=== PATIENT | female | born 1990 | race African-American/Black ===

== ENCOUNTER 2016-11-24 10:36 | Inpatient (IN) | payer OTHER ==
[~2016-11-24] VITALS: Ht 154.9 cm; Wt 60.0 kg
[~2016-11-24 10:36] MED LIST: ABAC1TAB12 PO; ACYC800T PO; ADV50050 INH; ALBU18HF INHALATION; ALBU2.5V3 NEB; ALBU8.5H3 INH; ALPR0.5T PO; AZIT250T6 PO; GUAI600T14 PO; IBUP400T22 PO; IPRA3AMP INHALATION; MONT10TA24 PO; PRED10TA PO
[2016-11-24] MEDS ORDERED: IPRATROPIUM (NEB) 0.5 MG/2.5 ML AMP INH STA (10:42)
[2016-11-24] MEDS ORDERED: MAGNESIUM SULFATE 2 GM/50 ML 50 ML IVPB STA (10:42)
[2016-11-24] MEDS ORDERED: METHYLPREDNISOLONE 125 MG INJ IV STA (10:42)
[2016-11-24] MEDS ORDERED: ALBUTEROL 0.5% (NEB) 2.5 MG/0.5 ML AMP INH STA (10:42)
[2016-11-24] MEDS ORDERED: ABAC1TAB12 PO (11:14)
--- NOTE | 2016-11-24 11:16 | RADRPT ---
PROCEDURE: XR Chest AP portable CLINICAL INDICATION: Asthma exacerbation TECHNIQUE: An AP portable radiograph of the chest was submitted. COMPARISON: 09/16/2016 FINDINGS: Support Hardware: None Cardiovascular: The cardiovascular silhouette appears unremarkable. Lung Longo: The lung longo appear clear with no nodule, alveolar infiltrate, or interstitial promi nence evident. Pleural Spaces: No pneumothorax or pleural effusion is identified. Osseous Structures: The osseous structures appear intact. Soft Tissues: The soft tissues appear unremarkable. IMPRESSION: Stable and unremarkable portable chest. Physician Robles Date Time Electronically viewed and signed by Marito Rosas Physician on 11/24/2016 11:16 /
[2016-11-24 11:46] LABS: ADD SCAN DIFF NO
[2016-11-24 11:50] LABS: BASOPHILS % 0.3 % (0.0-2.0); EOSINOPHILS # 0.4 10^3/ul (0.0-0.5); EOSINOPHILS % 6.1 % (0.0-7.0); HEMATOCRIT 43.5 % (37.0-47.0); HEMOGLOBIN 14.3 g/dl (12.0-16.0); LYMPHOCYTES % 28.2 % (15.0-51.0); MEAN CORPUSCULAR HEMOGLOBIN 28.4 pg (29.0-33.0); MEAN CORPUSCULAR HGB CONC 32.9 g/dl (32.0-37.0); MEAN CORPUSCULAR VOLUME 86.5 fl (82.0-101.0); MEAN PLATELET VOLUME 9.2 fl (7.4-10.4); MONOCYTE # 0.4 10^3/ul (0.3-0.9); MONOCYTES % 5.5 % (0.0-11.0); NEUTROPHIL # 4.2 10^3/ul (1.6-7.5); NEUTROPHILS % 59.6 % (39.0-77.0); PLATELET COUNT 234 10^3/UL (140-415); RED BLOOD COUNT 5.03 10^6/ul (4.20-5.40); RED CELL DISTRIBUTION WIDTH 12.4 % (11.5-14.5); WHITE BLOOD COUNT 7.1 10^3/ul (4.8-10.8)
[2016-11-24 12:01] LABS: ALBUMIN 3.9 g/dl (3.3-4.9)
[2016-11-24 12:02] LABS: INR 0.99; PROTIME 13.1 Sec (12.2-14.2)
[2016-11-24 12:03] LABS: CREATININE 0.68 mg/dl (0.44-1.00); PARTIAL THROMBOPLASTIN TIME 28.1 Sec (25.0-35.0)
[2016-11-24 12:04] LABS: ALBUMIN/GLOBULIN RATIO 1.39; BILIRUBIN,INDIRECT 0.8 mg/dl (0-1.1); BILIRUBIN,TOTAL 0.8 mg/dl (0.2-1.3); CALCIUM 9.2 mg/dl (8.4-10.2); TOTAL PROTEIN 6.7 g/dl (6.1-8.1)
[2016-11-24] MEDS ORDERED: VANCOMYCIN 1 GM (PMX) 250 ML IVPB SCH (12:30)
[2016-11-24] MEDS ORDERED: PIPER-TAZO 3.375 GM IV (PMX) 100 ML IVPB ONE (12:30)
[2016-11-24] MEDS ORDERED: POTASSIUM CHLORIDE (SR) 20 MEQ TAB PO STA (12:41)
[2016-11-24] MEDS ORDERED: ACETAMINOPHEN 325 MG TAB PO PRN ×3 (13:30→14:30)
[2016-11-24] MEDS ORDERED: ONDANSETRON 4 MG INJ IV PRN ×2 (13:30→14:30)
[2016-11-24] MEDS ORDERED: MAGNESIUM HYDROXIDE 30ML CUP PO PRN (14:00)
[2016-11-24] MEDS ORDERED: ZOLPIDEM 5 MG TAB PO PRN (14:00)
[2016-11-24] MEDS ORDERED: HYDROCODONE/APAP (5/325) TAB PO PRN (14:00)
[2016-11-24] MEDS ORDERED: NACL 0.9% 3 ML SYG IV SCH (14:00)
[2016-11-24] MEDS ORDERED: BISACODYL (EC) 5 MG TAB PO PRN (14:00)
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
[2016-11-24 14:13] LABS: ADD UMIC YES; URINE BILIRUBIN (Dip) NEGATIVE (NEGATIVE); URINE BLOOD (Dip) 2+ (NEGATIVE); URINE COLOR YELLOW (YELLOW); URINE GLUCOSE (Dip) NEGATIVE (NEGATIVE); URINE KETONES (Dip) NEGATIVE (NEGATIVE); URINE LEUKOCYTE ESTERASE (Dip) TRACE (NEGATIVE); URINE NITRITE (Dip) NEGATIVE (NEGATIVE); URINE TOTAL PROTEIN (Dip) NEGATIVE (NEGATIVE); URINE UROBILINOGEN (Dip) 0.2 E.U./dL (0.1-1.0)
[2016-11-24 14:27] LABS: MUCUS,URINE MODERATE; SQUAMOUS EPITHELIAL CELL,UR FEW
[2016-11-24 14:28] LABS: TRICHOMONAS,URINE OCCASIONAL
[2016-11-24] MEDS ORDERED: ALBUTEROL 0.5% (NEB) 2.5 MG/0.5 ML AMP NEB STA (14:34)
[2016-11-24] MEDS ORDERED: IPRATROPIUM (NEB) 0.5 MG/2.5 ML AMP NEB STA (14:34)
--- NOTE | 2016-11-24 15:08 | HP ---
DATE OF ADMISSION: 11/24/2016 TIME OF EVALUATION: 1330 hours.. REASON FOR ADMISSION: Dyspnea, cough. HISTORY OF PRESENT ILLNESS: This is a 26-year-old -[place] female with past medical history of asthma, HIV and herpes simplex virus, who came to the emergency room with chief complaint of dyspnea that has been going on for the past 2 days. The patient also verbalized a nonproductive cough. The patient denied any chest pain. The patient denied any fevers or chills. The patient verbalized that she ran out of her inhaled bronchodilators. The patient verbalized that she has been compliant with her antiretroviral medications. The patient's chest x-ray that was done in the emergency room was negative for any acute cardiopulmonary changes. The patient was noticed to have hypoxia. The patient's CBC was within normal limits. The patient's metabolic panel showed hypokalemia. The patient was treated with IV magnesium sulfate and a single dose of IV Solu-Medrol in the emergency room along with IV Zosyn and IV vancomycin. The patient's potassium was repleted in the emergency room. The patient's symptoms improved with the treatment strategy. PAST MEDICAL HISTORY: Asthma, HIV-positive, herpes simplex, HPV. PAST SURGICAL HISTORY: Denies. HOME MEDICATIONS: 1. Triumeq 1 tablet p.o. daily. 2. ProAir HFA 8.5 grams, 2 puffs inhaled q.4h. p.r.n. dyspnea. ALLERGIES: FISH. SOCIAL HISTORY: The patient is a former tobacco user. Current marijuana abuser. Denies any alcohol abuse. REVIEW OF SYSTEMS: A 12-point review of systems was made and review of systems is negative other than what is mentioned in history of present illness. PHYSICAL EXAMINATION: VITAL SIGNS: Temperature 98.0, pulse rate 110, respiratory rate 26, blood pressure 147/87, oxygen saturation 100% on low-flow O2. GENERAL: This is well-built, well-nourished -[place] female lying in bed in no apparent distress. HEENT: Head normocephalic and atraumatic. Eyes: Anicteric sclerae. Conjunctivae clear. ENT: Nasal septum is midline. Oral mucosa is dry. NECK: Supple. No JVD noticed. RESPIRATORY: Bilaterally diminished breath sounds. No use of accessory muscles of respiration. A few fine rales with occasional expiratory wheezing. CARDIAC: Regular rate and rhythm. No murmurs heard. GASTROINTESTINAL: Abdomen soft, nontender and nondistended. Bowel sounds positive in all 4 quadrants. GENITOURINARY: Deferred. EXTREMITIES: No cyanosis, no clubbing, no edema. Peripheral pulses are palpable. NEUROLOGIC: The patient is awake, alert and oriented. Cranial nerves are grossly intact. LABORATORY AND DIAGNOSTIC DATA: WBC 7.1, hemoglobin 14.3, hematocrit 43.5, platelet count 234. Sodium 147, potassium 3.0, chloride 106, carbon dioxide 27 , anion gap 15, BUN 9, creatinine 0.68, glucose 88, calcium 9.2. AST 21, ALT 30, alkaline phosphatase 60, total protein 6.7, albumin 3.9. PT 13.1, INR 0.99 , APTT 28.1. Chest x-ray: No acute cardiopulmonary changes. IMPRESSION: This is a 26-year-old -[place] female with past medical history of asthma who came to the emergency room with chief complaint of cough and dyspnea, who has evidence of asthma exacerbation and will be admitted here for further treatment and evaluation. ASSESSMENT AND PLAN: 1. Acute respiratory failure. Hypoxic. Secondary to asthma exacerbation. The patient will be maintained on supplemental oxygen. The patient will be started on inhaled bronchodilators around the clock and on a p.r.n. basis. 2. Acute asthma exacerbation. The patient will be started on tapering dose of IV steroids. The patient will be maintained on inhaled bronchodilators, both beta 2 agonist and inhaled anticholinergics around the clock and on a p.r.n. basis for any episodes of shortness of breath. The patient will also be started on leukotriene inhibitors. No antibiotics will be started since the patient has no obvious evidence of any infection. 3. Human immunodeficiency virus positive status. The patient will be started on antiretroviral medications. A CD4 count will be obtained on this patient. 4. History of herpes simplex virus. No active issues. 5. History of marijuana abuse. A urine drug screen will be ordered on this patient. PLAN: The patient will be admitted to inpatient medical/surgical floor. The patient will be started on DVT prophylaxis and gastrointestinal prophylaxis. The patient will remain a full code. Activities will be as tolerated. The rest of the patient's management will be based on the clinical course and the results of diagnostic studies. Based on the patient's clinical presentation, she most probably requires at least 2 midnights' stay for further management and evaluation of her clinical presentation. The case and management of this patient was fully discussed with Dr. Moore. Approximately 45 minutes was spent on the history and physical of this patient. MATILDA MOORE MD, AM/HI Conf#: [id number] DID#: [id number] MTDD
[2016-11-24] MEDS: ALBUTEROL/IPRATROPIUM (NEB) 3 ML AMP HHN SCH ×2 (15:27→19:46)
[2016-11-24] MEDS: METHYLPREDNISOLONE 125 MG INJ IV SCH ×2 (17:16→23:57)
[2016-11-24 18:20] VITALS: TEMP 98.4
[2016-11-24] MEDS: morphine 2 MG INJ IV PRN (20:36)
[2016-11-24 21:25] LABS: BARBITURATES Negative (NEGATIVE); BENZODIAZEPINES Negative (NEGATIVE); CANNABINOIDS Positive (NEGATIVE); COCAINE Negative (NEGATIVE); OPIATES Negative (NEGATIVE)
[2016-11-24] MEDS: MONTELUKAST 10 MG TAB PO SCH (21:47)
[2016-11-24] MEDS: FAMOTIDINE 20 MG TAB PO SCH (21:47)
[2016-11-24 21:48] VITALS: PULSE 90
[2016-11-24] MEDS: LORAZEPAM 2 MG INJ IV PRN (21:53)
[2016-11-24 22:01] VITALS: BP 105/78; PULSE 86; RESP 18
[2016-11-24 22:05] VITALS: Ht 154.9 cm; Wt 60.0 kg
[2016-11-25] VITALS (18 sets, daily range): BP systolic 99–143; BP diastolic 48–84; PULSE 68–113; RESP 15–18
[2016-11-25] MEDS: METHYLPREDNISOLONE 125 MG INJ IV SCH ×2 (05:28→12:03)
[2016-11-25] MEDS: LORAZEPAM 2 MG INJ IV PRN ×3 (05:59→21:25)
[2016-11-25] MEDS: ALBUTEROL/IPRATROPIUM (NEB) 3 ML AMP HHN SCH ×4 (06:04→21:02)
[2016-11-25] MEDS: ALBUTEROL/IPRATROPIUM (NEB) 3 ML AMP HHN PRN ×2 (06:05→11:26)
[2016-11-25] MEDS: ENOXAPARIN 40 MG/0.4 ML SYG SC SCH (09:00)
[2016-11-25 10:19] LABS: ADD SCAN DIFF NO
[2016-11-25] MEDS: DOLUTEGRAVIR SODIUM 50 MG TABLET PO SCH (10:21)
[2016-11-25] MEDS: ABACAVIR/LAMIVUDINE TAB PO SCH (10:21)
[2016-11-25] MEDS: FAMOTIDINE 20 MG TAB PO SCH ×2 (10:22→21:25)
[2016-11-25 10:27] LABS: HEMATOCRIT 44.1 % (37.0-47.0); HEMOGLOBIN 14.7 g/dl (12.0-16.0); LYMPHOCYTES # 0.8 10^3/ul (0.8-2.9); LYMPHOCYTES % 7.6 % (15.0-51.0); MEAN CORPUSCULAR HEMOGLOBIN 28.3 pg (29.0-33.0); MEAN CORPUSCULAR HGB CONC 33.3 g/dl (32.0-37.0); MEAN CORPUSCULAR VOLUME 84.8 fl (82.0-101.0); MEAN PLATELET VOLUME 9.4 fl (7.4-10.4); MONOCYTE # 0.1 10^3/ul (0.3-0.9); MONOCYTES % 1.2 % (0.0-11.0); NEUTROPHIL # 9.5 10^3/ul (1.6-7.5); NEUTROPHILS % 90.9 % (39.0-77.0); PLATELET COUNT 241 10^3/UL (140-415); RED CELL DISTRIBUTION WIDTH 12.2 % (11.5-14.5); WHITE BLOOD COUNT 10.5 10^3/ul (4.8-10.8)
[2016-11-25 10:39] LABS: POTASSIUM 4.5 mmol/L (3.5-5.1)
[2016-11-25 10:41] LABS: CREATININE 0.58 mg/dl (0.44-1.00)
[2016-11-25 10:42] LABS: CALCIUM 9.9 mg/dl (8.4-10.2)
[2016-11-25 10:57] LABS: PHOSPHORUS 4.2 mg/dl (2.5-4.9)
[2016-11-25 10:58] LABS: MAGNESIUM 2.3 mg/dl (1.7-2.5)
[2016-11-25 11:28] LABS: THYROID STIMULATING HORMONE 0.311 MIU/L (0.465-4.680)
--- NOTE | 2016-11-25 13:13 | PN ---
Date/Time of Note Date/Time of Note DATE: 11/25/16 TIME: 13:12 Assessment/Plan VTE Prophylaxis VTE Prophylaxis Intervention: SCD's Lines/Catheters IV Catheter Type (from [facility], [place]): Saline Lock Urinary Cath still in place: No Assessment/Plan Chief Complaint/Hosp Course 1. Acute respiratory failure. Hypoxic. Secondary to asthma exacerbation. The patient will be maintained on supplemental oxygen. The patient will be continued on inhaled bronchodilators around the clock and on a p.r.n. basis. 2. Acute asthma exacerbation. The patient will be continued on tapering dose of IV steroids. The patient will be maintained on inhaled bronchodilators, both beta 2 agonist and inhaled anticholinergics around the clock and on a p.r.n. basis for any episodes of shortness of breath. The patient will also be maintained on leukotriene inhibitors. No antibiotics will be started since the patient has no obvious evidence of any infection. 3. Human immunodeficiency virus positive status. The patient on antiretroviral medications. Pending CD4 count. 4. History of herpes simplex virus. No active issues. 5. Substance abuse. The patient denies any regular use of marijuana and methamphetamine. However, the patient's urine drug screen is positive for both marijuana and methamphetamines. 6. Fluids, electrolytes, and nutrition. Regular diet as tolerated. 7. DVT prophylaxis. Bilateral sequential compression devices. 8. Gastrointestinal prophylaxis. Histamine 2 receptor blockers. 9. Plan. Continue inhaled bronchodilators. Continue tapering dose of steroids. Case discussed with Dr. Ram. Problems: Subjective 24 Hr Interval Summary Free Text/Dictation Respiratory status better. Complains of left chest wall pain. Exam/Review of Systems Vital Signs Vitals Vital Signs Date Time Temp Pulse Resp B/P Pulse Ox O2 Delivery O2 Flow Rate FiO2 11/25/16 12:33 92 11/25/16 11:38 100 30 11/25/16 11:17 98.0 18 112/78 11/25/16 01:04 4.0 11/24/16 22:01 Nasal Cannula Exam GENERAL: This is well-built, well-nourished -[place] female lying in bed in no apparent distress. HEENT: Head normocephalic and atraumatic. Eyes: Anicteric sclerae. Conjunctivae clear. ENT: Nasal septum is midline. Oral mucosa is dry. NECK: Supple. No JVD noticed. RESPIRATORY: Bilaterally diminished breath sounds. No use of accessory muscles of respiration. A few fine rales with occasional expiratory wheezing. CARDIAC: Regular rate and rhythm. No murmurs heard. GASTROINTESTINAL: Abdomen soft, nontender and nondistended. Bowel sounds positive in all 4 quadrants. GENITOURINARY: Deferred. EXTREMITIES: No cyanosis, no clubbing, no edema. Peripheral pulses are palpable. NEUROLOGIC: The patient is awake, alert and oriented. Cranial nerves are grossly intact. Results Result Diagram: 11/25/16 1010 11/25/16 1010 Results 24 hrs Laboratory Tests Test 11/24/16 14:00 11/25/16 10:10 Urine Amphetamines Screen POSITIVE Urine Barbiturates Negative Urine Benzodiazepines Screen Negative Urine Bilirubin NEGATIVE Urine Cannabinoids Positive Urine Clarity CLEAR Urine Cocaine Screen Negative Urine Color YELLOW Urine Glucose NEGATIVE Urine Hemoglobin 2+ H Urine Ketones NEGATIVE Urine Leukocyte Esterase TRACE H Urine Microscopic RBC 2-5 Urine Microscopic WBC 2-5 Urine Mucus MODERATE Urine Nitrite NEGATIVE Urine Opiates Screen Negative Urine Test NEGATIVE Urine Specific [place] >=1.030 H Urine Squamous Epithelial Cells FEW Urine Total Protein NEGATIVE Urine Trichomonas OCCASIONAL Urine Urobilinogen 0.2 E.U./dL Urine pH 5.5 Anion Gap 18 H Basophils # 0.0 Basophils % 0.0 Blood Urea Nitrogen 8 Calcium Level 9.9 Carbon Dioxide Level 24 Chloride Level 105 Cholesterol Level 139 Cholesterol/HDL Ratio 3.0 Creatinine 0.58 Eosinophils # 0.0 Eosinophils % 0.0 Free Thyroxine 1.02 Glucose Level 117 HDL Cholesterol 46 Hematocrit 44.1 Hemoglobin 14.7 Hemoglobin A1c 5.2 LDL Cholesterol, Calculated 83 Lymphocytes # 0.8 Lymphocytes % 7.6 L Magnesium Level 2.3 Mean Corpuscular Hemoglobin 28.3 L Mean Corpuscular Hemoglobin Concent 33.3 Mean Corpuscular Volume 84.8 Mean Platelet Volume 9.4 Monocytes # 0.1 L Monocytes % 1.2 Neutrophils # 9.5 H Neutrophils % 90.9 H Nucleated Red Blood Cells # 0.0 Nucleated Red Blood Cells % 0.0 Phosphorus Level 4.2 Platelet Count 241 Potassium Level 4.5 Red Blood Count 5.20 Red Cell Distribution Width 12.2 Sodium Level 142 Thyroid Stimulating Hormone (TSH) 0.311 L Triglycerides Level 50 White Blood Count 10.5 # Medications Medications Current Medications Ondansetron HCl (Zofran Inj) 4 mg Q6H PRN IV NAUSEA AND/OR VOMITING; Start at 14:00 Acetaminophen (Tylenol Tab) 650 mg Q6H PRN PO PAIN LEVEL 1-3 OR FEVER; Start at 14:00 Acetaminophen/ Hydrocodone Bitart ([place] (5/325)) 1 tab Q6H PRN PO MODERATE PAIN LEVEL 4-6; Start 11/24/16 at 14:00 Morphine Sulfate (morphine) 2 mg Q4H PRN IV SEVERE PAIN LEVEL 7-10 Last administered on 11/24/16 20:36; Admin Dose 2 MG; Start 11/24/16 at 14:00 Magnesium Hydroxide (Milk Of Mag) 30 ml DAILY PRN PO CONSTIPATION; Start at 14:00 Bisacodyl (Dulcolax) 5 mg DAILY PRN PO CONSTIPATION; Start 11/24/16 at 14:00 Zolpidem Tartrate (Ambien) 5 mg QHS PRN PO SLEEP; Start 11/24/16 at 14:00 Famotidine (Pepcid) 20 mg Q12 PO Last administered on 11/25/16 10:22; Admin Dose 20 MG; Start 11/24/16 at 21:00 Enoxaparin Sodium (Lovenox) 40 mg DAILY SC ; Start 11/25/16 at 09:00 Methylprednisolone Sodium Succinate (Solu-Medrol) 60 mg Q6 IV Last administered on 11/25/16 12:03; Admin Dose 60 MG; Start 11/24/16 at 18:00 Montelukast Sodium (Singulair) 10 mg HS PO Last administered on 11/24/16 21:47 ; Admin Dose 10 MG; Start 11/24/16 at 21:00 Abacavir/ Lamivudine (Epzicom) 1 tab DAILY PO Last administered on 11/25/16 10 :21; Admin Dose 1 TAB; Start 11/25/16 at 09:00 Dolutegravir Sodium ([place]) 50 mg DAILY PO Last administered on 11/25/16 10: 21; Admin Dose 50 MG; Start 11/25/16 at 09:00 Lorazepam (Ativan) 1 mg Q6H PRN IV Anxiety Last administered on 11/25/16 12:03 ; Admin Dose 1 MG; Start 11/24/16 at 17:00 MATILDA ENCINAS NP Nov 25, 2016 13:13
[2016-11-25] MEDS ORDERED: VANCOMYCIN IV PER PHARMACY XX SCH (17:00)
[2016-11-25] MEDS: METHYLPREDNISOLONE 40 MG INJ IV SCH ×2 (18:46→23:33)
[2016-11-25] MEDS ORDERED: VANCOMYCIN 1.25 GM in SOD CHLORIDE 0.9% 250 ML IVPB SCH (19:00)
[2016-11-25] MEDS: MONTELUKAST 10 MG TAB PO SCH (21:25)
[2016-11-25] MEDS ORDERED: DIPHENHYDRAMINE 25 MG CAP PO PRN (21:30)
[2016-11-25] MEDS: morphine 2 MG INJ IV PRN (22:23)
[2016-11-26] MEDS ORDERED: VANCOMYCIN 750 MG in SOD CHLORIDE 0.9% 150 ML IVPB SCH (03:00)
[2016-11-26 04:52] LABS: ADD SCAN DIFF NO
[2016-11-26 04:56] LABS: BASOPHILS % 0.1 % (0.0-2.0); HEMATOCRIT 41.3 % (37.0-47.0); HEMOGLOBIN 13.7 g/dl (12.0-16.0); LYMPHOCYTES # 0.8 10^3/ul (0.8-2.9); LYMPHOCYTES % 5.7 % (15.0-51.0); MEAN CORPUSCULAR HEMOGLOBIN 28.3 pg (29.0-33.0); MEAN CORPUSCULAR HGB CONC 33.2 g/dl (32.0-37.0); MEAN CORPUSCULAR VOLUME 85.3 fl (82.0-101.0); MEAN PLATELET VOLUME 9.3 fl (7.4-10.4); MONOCYTE # 0.2 10^3/ul (0.3-0.9); MONOCYTES % 1.5 % (0.0-11.0); NEUTROPHIL # 13.3 10^3/ul (1.6-7.5); NEUTROPHILS % 92.1 % (39.0-77.0); PLATELET COUNT 292 10^3/UL (140-415); RED BLOOD COUNT 4.84 10^6/ul (4.20-5.40); RED CELL DISTRIBUTION WIDTH 12.5 % (11.5-14.5); WHITE BLOOD COUNT 14.5 10^3/ul (4.8-10.8)
[2016-11-26] MEDS: METHYLPREDNISOLONE 40 MG INJ IV SCH ×3 (05:20→17:01)
[2016-11-26 05:34] LABS: POTASSIUM 4.6 mmol/L (3.5-5.1)
[2016-11-26 05:36] LABS: CREATININE 0.63 mg/dl (0.44-1.00)
[2016-11-26 05:37] LABS: CALCIUM 9.8 mg/dl (8.4-10.2)
[2016-11-26 05:40] VITALS: PULSE 99
[2016-11-26] MEDS: ALBUTEROL/IPRATROPIUM (NEB) 3 ML AMP HHN PRN ×2 (05:47→17:20)
[2016-11-26] MEDS: morphine 2 MG INJ IV PRN ×4 (05:54→21:52)
[2016-11-26 06:58] LABS: MAGNESIUM 2.3 mg/dl (1.7-2.5); PHOSPHORUS 4.4 mg/dl (2.5-4.9)
[2016-11-26 07:30] VITALS: PULSE 100
[2016-11-26 07:35] VITALS: BP 133/69; RESP 24
[2016-11-26] MEDS: ENOXAPARIN 40 MG/0.4 ML SYG SC SCH (09:00)
[2016-11-26 09:08] VITALS: PULSE 95
[2016-11-26] MEDS: ALBUTEROL/IPRATROPIUM (NEB) 3 ML AMP HHN SCH ×3 (09:11→20:29)
[2016-11-26] MEDS: FAMOTIDINE 20 MG TAB PO SCH ×2 (09:34→20:13)
[2016-11-26] MEDS: DOLUTEGRAVIR SODIUM 50 MG TABLET PO SCH (09:47)
[2016-11-26] MEDS: ABACAVIR/LAMIVUDINE TAB PO SCH (09:47)
[2016-11-26] MEDS: CHOLECALCIFEROL 400 UNITS TAB PO SCH (09:47)
[2016-11-26] MEDS: ONDANSETRON 4 MG INJ IV PRN (09:59)
[2016-11-26] MEDS: LORAZEPAM 2 MG INJ IV PRN ×2 (11:32→21:52)
[2016-11-26 13:30] LABS: LYMPHOCYTE - CD4/CD8 RATIO 0.41 (0.86-5.00)
--- NOTE | 2016-11-26 14:25 | PN ---
Date/Time of Note Date/Time of Note DATE: 11/26/16 TIME: 14:18 Assessment/Plan VTE Prophylaxis VTE Prophylaxis Intervention: SCD's Lines/Catheters [facility]from [facility] Saline Lock Urinary Cath still in place: No Assessment/Plan Chief Complaint/Hosp Course 1. Acute respiratory failure. Hypoxic. Secondary to asthma exacerbation. cont on bronchodilators and o2 as needed. cont on steroid 2. Acute asthma exacerbation. Patient with history of frequent asthma exacerbation. will get pulmonoogy consultaiton. cont on breathing tx. 3. Human immunodeficiency virus positive status. cont antiretrovirals. will get ID consult 4. History of herpes simplex virus. No active issues. 5. Substance abuse. The patient denies any regular use of marijuana and methamphetamine. However, the patient's urine drug screen is positive for both marijuana and methamphetamines. Cessation advised DISPO/PLAN: carrier operator to follow for worse breathing ID consult to follow for bacteremia. cont inpatient monitoring Discussed plan of care with Dr. Espinosa Problems: Subjective 24 Hr Interval Summary Free Text/Dictation still with reported shortness of breath Exam/Review of Systems Vital Signs Vitals Vital Signs Date Time Temp Pulse Resp B/P Pulse Ox O2 Delivery O2 Flow Rate FiO2 11/26/16 13:35 95 30 11/26/16 13:01 Nasal Cannula 2.0 11/26/16 09:13 102 24 11/26/16 07:35 98.3 133/69 Intake and Output 11/25/16 11/25/16 11/26/16 15:00 23:00 07:00 Intake Total 200 ml 100 ml 400 ml Balance 200 ml 100 ml 400 ml Exam General: No acute signs or symptoms of distress Eyes: pupils equal round, Anicteric sclera Neck: Supple nontender, no JVD Cardiac: S1, S2 auscultated, regular rhythm and rate Pulmonary: wheezing auscultated bilaterally GI: Abdomen soft nontender nondistended, bowel sounds active Extremities: No edema bilateral lower extremities Skin: Clean dry and intact Neurologic: Alert to person place and time and situation Results Result Diagram: 11/26/1641911/26/16419 Results 24 hrs Laboratory Tests Test 11/26/16 04:20 Anion Gap 16 Basophils # 0.0 Basophils % 0.1 Blood Urea Nitrogen 13 Calcium Level 9.8 Carbon Dioxide Level 24 Chloride Level 107 Creatinine 0.63 Eosinophils # 0.0 Eosinophils % 0.0 Glucose Level 123 Hematocrit 41.3 Hemoglobin 13.7 Lymphocytes # 0.8 Lymphocytes % 5.7 L Magnesium Level 2.3 Mean Corpuscular Hemoglobin 28.3 L Mean Corpuscular Hemoglobin Concent 33.2 Mean Corpuscular Volume 85.3 Mean Platelet Volume 9.3 Monocytes # 0.2 L Monocytes % 1.5 Neutrophils # 13.3 H Neutrophils % 92.1 H Nucleated Red Blood Cells # 0.0 Nucleated Red Blood Cells % 0.0 Phosphorus Level 4.4 Platelet Count 292 # Potassium Level 4.6 Red Blood Count 4.84 Red Cell Distribution Width 12.5 Sodium Level 142 White Blood Count 14.5 #H Medications Medications Current Medications Ondansetron HCl (Zofran Inj) 4 mg Q6H PRN IV NAUSEA AND/OR VOMITING Last administered on 11/26/16 09:59; Admin Dose 4 MG; Start 11/24/16 at 14:00 Acetaminophen (Tylenol Tab) 650 mg Q6H PRN PO PAIN LEVEL 1-3 OR FEVER; Start at 14:00 Acetaminophen/ Hydrocodone Bitart ([place] (5/325)) 1 tab Q6H PRN PO MODERATE PAIN LEVEL 4-6; Start 11/24/16 at 14:00 Morphine Sulfate (morphine) 2 mg Q4H PRN IV SEVERE PAIN LEVEL 7-10 Last administered on 11/26/16 09:53; Admin Dose 2 MG; Start 11/24/16 at 14:00 Magnesium Hydroxide (Milk Of Mag) 30 ml DAILY PRN PO CONSTIPATION; Start at 14:00 Bisacodyl (Dulcolax) 5 mg DAILY PRN PO CONSTIPATION; Start 11/24/16 at 14:00 Zolpidem Tartrate (Ambien) 5 mg QHS PRN PO SLEEP; Start 11/24/16 at 14:00 Famotidine (Pepcid) 20 mg Q12 PO Last administered on 11/26/16 09:34; Admin Dose 20 MG; Start 11/24/16 at 21:00 Enoxaparin Sodium (Lovenox) 40 mg DAILY SC ; Start 11/25/16 at 09:00 Montelukast Sodium (Singulair) 10 mg HS PO Last administered on 11/25/16 21:25 ; Admin Dose 10 MG; Start 11/24/16 at 21:00 Abacavir/ Lamivudine (Epzicom) 1 tab DAILY PO Last administered on 11/26/16 09 :47; Admin Dose 1 TAB; Start 11/25/16 at 09:00 Dolutegravir Sodium (Tivicay) 50 mg DAILY PO Last administered on 11/26/16 09: 47; Admin Dose 50 MG; Start 11/25/16 at 09:00 Lorazepam (Ativan) 1 mg Q6H PRN IV Anxiety Last administered on 11/26/16 11:32 ; Admin Dose 1 MG; Start 11/24/16 at 17:00 Methylprednisolone Sodium Succinate (Solu-Medrol) 40 mg Q6 IV Last administered on 11/26/16 12:41; Admin Dose 40 MG; Start 11/25/16 at 18:00 Cholecalciferol (Vitamin D) 800 units DAILY PO Last administered on 11/26/16 09:47; Admin Dose 800 UNITS; Start 11/26/16 at 09:00 Diphenhydramine HCl (Benadryl) 25 mg Q6H PRN PO ITCHING Last administered on 22:23; Admin Dose 25 MG; Start 11/25/16 at 21:30 YAMEL MEREDITH Nov 26, 2016 14:25
[2016-11-26] MEDS: CLINDAMYCIN 600 MG/D5W (PMX) 50 ML IVPB SCH (18:30)
--- NOTE | 2016-11-26 18:59 | CONS ---
DATE OF ADMISSION: 11/24/2016 DATE OF CONSULTATION: 11/26/2016 TYPE OF CONSULTATION: Infectious disease. REASON FOR CONSULTATION: Antibiotic management. HISTORY OF PRESENT ILLNESS: Kellen Trejo is a 26-year-old black female with numerous problems who comes in with dyspnea and cough. Her past problems include: 1. HIV. 2. History of asthma. 3. Herpes simplex virus. 4. HPV. The patient came to the emergency room with dyspnea for the 2 days prior to admission. She had a no nproductive cough without fever or chills. She ran out of inhaled bronchodilators. The patient's c hest x-ray was negative for cardiopulmonary changes. She was hypokalemic. She was treated with IV magnesium sulfate and Solu-Medrol and was given vancomycin and Zosyn in the emergency room. PAST MEDICAL HISTORY: As outlined. FAMILY HISTORY: Noncontributory. SOCIAL HISTORY: She is a former smoker and she uses marijuana. She denies alcohol abuse. MEDICATIONS: Include: 1. Triumeq 1 tablet a day for her HIV, not sure what her CD4 count is. 2. She is on ProAir for her inhaler. LABORATORY: On admission, her white count was 7.1, H and H of 14.3 and 43.5, platelet count 234,000 . BUN and creatinine 9 over 0.68, AST 21, ALT 30, alkaline phosphatase 60, total protein 6.7, album in 3.9. PHYSICAL EXAMINATION: GENERAL: She is a well-developed, well-nourished female who is alert, responsive. No acute distres s. VITAL SIGNS: Stable. She is afebrile. SKIN: Without generalized rash. HEENT: Within normal limits. NECK: Supple. LYMPH NODES: None palpable. CHEST: Decreased breath sounds at the bases. HEART: Without murmur or gallop. ABDOMEN: Soft, nontender without organosplenomegaly or masses. EXTREMITIES: Without cyanosis, clubbing or edema. RECTAL AND GENITAL: Deferred. NEUROLOGIC: No focal neurological abnormality. IMPRESSION AND PLAN: The patient comes in now with exacerbation of asthma with complaints of cough and dyspnea. She is on supplemental oxygen and bronchodilators. We will taper her steroids and see whether she has any underlying pneumonia. Her CD4 count will be obtained. Her blood culture: One out of 2 grew out alpha-hemolytic strep species. She has mixed gram-positive organisms in her urin e. White count today is 14.5. She is on her Triumeq, which is abacavir, lamivudine and Tivicay (or dolutegravir sodium). She is o ff antibiotics. We're going to repeat her blood cultures. Blood cultures actually were repeated on the . She seems to be responding to medication. I will dictate my findings to the hospitalist . Dictated By: VENKATESH BENAVIDES MD, JD/HI Conf#: [id number] DID#: [id number]
[2016-11-26] MEDS: MONTELUKAST 10 MG TAB PO SCH (20:13)
[2016-11-26 20:21] VITALS: BP 139/89; RESP 20
[2016-11-27] MEDS: CLINDAMYCIN 600 MG/D5W (PMX) 50 ML IVPB SCH ×3 (00:05→11:26)
[2016-11-27] MEDS: METHYLPREDNISOLONE 40 MG INJ IV SCH ×4 (00:06→17:48)
[2016-11-27] MEDS: morphine 2 MG INJ IV PRN ×4 (04:07→21:08)
[2016-11-27] MEDS: ALBUTEROL/IPRATROPIUM (NEB) 3 ML AMP HHN PRN ×2 (04:21→11:48)
[2016-11-27] MEDS: LORAZEPAM 2 MG INJ IV PRN ×3 (05:21→18:10)
[2016-11-27 08:04] VITALS: BP 141/84; RESP 20
[2016-11-27] MEDS: ALBUTEROL/IPRATROPIUM (NEB) 3 ML AMP HHN SCH ×3 (08:55→20:23)
[2016-11-27] MEDS: ENOXAPARIN 40 MG/0.4 ML SYG SC SCH (09:00)
[2016-11-27] MEDS: FAMOTIDINE 20 MG TAB PO SCH ×2 (09:14→21:09)
[2016-11-27] MEDS: ABACAVIR/LAMIVUDINE TAB PO SCH (09:14)
[2016-11-27] MEDS: DOLUTEGRAVIR SODIUM 50 MG TABLET PO SCH (09:14)
[2016-11-27] MEDS: CHOLECALCIFEROL 400 UNITS TAB PO SCH (09:15)
--- NOTE | 2016-11-27 11:53 | CONS ---
Date/Time of Note Date/Time of Note DATE: 11/27/16 TIME: 11:48 Assessment/Plan Assessment/Plan Additional Assessment/Plan Chest x-ray was reviewed from of this month which is essentially clear. Assessment and recommendations; next 1. Patient admitted with recurrent asthma exacerbation with a history of ongoing smoking. 2. Acute bronchitis. 3. History of being HIV positive patient currently on appropriate anti- retroviral regimen. 4. Prior history of pneumonia. Identity of the offending organism is unknown at this point. 5. History of human papillomavirus as well as HSV infection. Continue current treatment. Discontinue clindamycin. Start Levaquin 5oo mg IV daily. Continue Solu-Medrol at current dosing. Consultation Date/Type/Reason Admit Date/Time Nov 24, 2016 at 13:15 Date of Consultation: Nov 27, 2016 Type of Consultation: Pulmonary Reason for Consultation Pulmonary consultation requested for evaluation and treatment of severe asthma. History presenting; patient is a 26-year-old F [place] girl who came into the emergency room on the of this month with complaints of shortness of breath cough wheezing going on for the last 2 days prior to presentation. Patient denied having any history of high fever or chills. Upon evaluation patient was diagnosed with recurrent asthma exacerbation was admitted to the medical floor and started on IV antibiotics as well as systemic steroids and bronchial dilator regimen. The patient is feeling a little better since admission. Past medical history; next 1. Patient with history of being HIV positive. Next 2. History of HPV infection. 3. History of HSV infection. 4. Patient gives a prior history of pneumonia but she is not sure as to the offending organism. 5. Multiple admissions to [facility] for asthma exacerbation. As well as multiple emergency room visits. Next Medications; were reviewed. Allergies; R to vancomycin and fish. Social history; patient still smokes off and on. Family history; patient has 2 children. Occupational history; patient is on disability. Review of systems; denies any headache, any seizures.Denies any visual changes , any sinus symptoms or postnasal drip. Denies any sore throat, dysphagia , odynophagia. Denies any chest pain or angina. Complains of cough with production of green sputum but. Denies any hemoptysis. Denies any abdominal pain, nausea vomiting. Complains of wheezing. Complains of shortness of breath on exertion. Denies any melena, hematochezia any urinary symptoms. Any skin changes. Any weight loss. General exam; young woman currently in no distress. Several bouts of coughing were observed during examination. Past Surgical History Past Surgical Hx: no surgical history Social History Smoking Status: Current every day smoker Exam/Review of Systems Vital Signs Vitals Vital Signs Date Time Temp Pulse Resp B/P Pulse Ox O2 Delivery O2 Flow Rate FiO2 11/27/16 09:00 100 3.0 11/27/16 08:57 77 16 Nasal Cannula 32 11/27/16 08:04 98.8 141/84 Intake and Output 11/26/16 11/26/16 11/27/16 15:00 23:00 07:00 Intake Total 1360 ml 460 ml Output Total 0 ml Balance 1360 ml 460 ml Exam H EENT examination; supple neck, no JVD. No lymphadenopathy. Midline trachea. No thyromegaly. Fair dentition. No pharyngeal thrush. Pupils are midsize and reactive to light. Chest examination; diminished breath sound bilaterally with bilateral expiratory wheezing. S1-S2 audible, no murmurs. Regular rhythm. Abdomen examination; soft, nontender. Bowel sounds audible. Extremity examination; no peripheral edema. No clubbing. Pulses 2+ bilaterally. 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 Results Result Diagram: 11/26/1641911/26/16419 Medications Medications Current Medications Ondansetron HCl (Zofran Inj) 4 mg Q6H PRN IV NAUSEA AND/OR VOMITING Last administered on 11/26/16 09:59; Admin Dose 4 MG; Start 11/24/16 at 14:00 Acetaminophen (Tylenol Tab) 650 mg Q6H PRN PO PAIN LEVEL 1-3 OR FEVER Last administered on 11/26/16 20:17; Admin Dose 650 MG; Start 11/24/16 at 14:00 Acetaminophen/ Hydrocodone Bitart ([place] (5/325)) 1 tab Q6H PRN PO MODERATE PAIN LEVEL 4-6; Start 11/24/16 at 14:00 Morphine Sulfate (morphine) 2 mg Q4H PRN IV SEVERE PAIN LEVEL 7-10 Last administered on 11/27/16 09:21; Admin Dose 2 MG; Start 11/24/16 at 14:00 Magnesium Hydroxide (Milk Of Mag) 30 ml DAILY PRN PO CONSTIPATION; Start at 14:00 Bisacodyl (Dulcolax) 5 mg DAILY PRN PO CONSTIPATION; Start 11/24/16 at 14:00 Zolpidem Tartrate (Ambien) 5 mg QHS PRN PO SLEEP; Start 11/24/16 at 14:00 Famotidine (Pepcid) 20 mg Q12 PO Last administered on 11/27/16 09:14; Admin Dose 20 MG; Start 11/24/16 at 21:00 Enoxaparin Sodium (Lovenox) 40 mg DAILY SC ; Start 11/25/16 at 09:00 Montelukast Sodium (Singulair) 10 mg HS PO Last administered on 11/26/16 20:13 ; Admin Dose 10 MG; Start 11/24/16 at 21:00 Abacavir/ Lamivudine (Epzicom) 1 tab DAILY PO Last administered on 11/27/16 09 :14; Admin Dose 1 TAB; Start 11/25/16 at 09:00 Dolutegravir Sodium (Tivicay) 50 mg DAILY PO Last administered on 11/27/16 09: 14; Admin Dose 50 MG; Start 11/25/16 at 09:00 Lorazepam (Ativan) 1 mg Q6H PRN IV Anxiety Last administered on 11/27/16 05:21 ; Admin Dose 1 MG; Start 11/24/16 at 17:00 Methylprednisolone Sodium Succinate (Solu-Medrol) 40 mg Q6 IV Last administered on 11/27/16 05:22; Admin Dose 40 MG; Start 11/25/16 at 18:00 Cholecalciferol (Vitamin D) 800 units DAILY PO Last administered on 11/27/16 09:15; Admin Dose 800 UNITS; Start 11/26/16 at 09:00 Diphenhydramine HCl 25 mg 25 mg Q6H PRN PO ITCHING Last administered on 22:23; Admin Dose 25 MG; Start 11/25/16 at 21:30 Clindamycin HCl/ Dextrose (Cleocin 600 Mg/ D5W (Pmx)) 50 ml @ 50 mls/hr Q6 IVPB Last administered on 11/27/16 11:26; Admin Dose 50 MLS/HR; Start 11/26/16 at 18:00 DAVID GARIBAY Nov 27, 2016 11:53
[2016-11-27] MEDS: LEVOFLOXACIN 500MG/D5W (PMX) 100 ML IVPB SCH (12:10)
--- NOTE | 2016-11-27 12:34 | PN ---
DATE: 11/27/2016 SUBJECTIVE: No acute events overnight. The patient is lying comfortably in bed , sleeping. No fevers. No labs this morning. MICROBIOLOGY: Blood culture on admission grew alpha hemolytic strep species. Repeat blood cultures negative. Urine culture was consistent with contaminant. Urinalysis was positive on admission. ANTIMICROBIALS: The patient is on: 1. Levaquin. 2. Clindamycin. 3. She is also on IV steroids. 4. She is also on antiretroviral medications. PHYSICAL EXAMINATION: GENERAL: This is a well-developed woman who is in no distress. HEENT: Head atraumatic, normocephalic. Sclerae anicteric. Buccal mucosa dry. NECK: Supple, trachea midline. CHEST: Rise symmetrical. Breath sounds diminished. HEART: S1, S2. ABDOMEN: Soft, bowel tones present. EXTREMITIES: No cyanosis. ASSESSMENT: 1. Acute asthma exacerbation and acute bronchitis. 2. AIDS with a recent CD4 count on this admission of 153. 3. Alpha hemolytic strep bacteremia, possibly secondary to urinary tract infection versus secondary to pulmonary source. 4. History of herpes simplex virus and HPV. 5. History of noncompliance. PLAN: We are going to start patient on Rocephin. We will start her on Bactrim once daily for PCP prophylaxis, Diflucan once daily and acyclovir empiric, given history of herpes simplex virus and immunocompromised state. Repeat urine culture. Continue steroids, bronchodilators as per pulmonary recommendations. Continue antiretroviral medications. Dictated By: [employer] SALES ADVISOR for VENKATESH SORIA/HI Conf#: [id number] DID#: [id number] DARCY
[2016-11-27] MEDS: FLUCONAZOLE 100 MG TAB PO SCH (12:44)
[2016-11-27] MEDS: TRIMETHOPRIM/SULFAMETHOX (DS) TAB PO SCH (12:44)
[2016-11-27] MEDS: CEFTRIAXONE 1 GM/50 ML (PMX) 50 ML IVPB SCH (14:09)
[2016-11-27] MEDS: ONDANSETRON 4 MG INJ IV PRN ×2 (14:12→21:25)
--- NOTE | 2016-11-27 14:33 | PN ---
Date/Time of Note Date/Time of Note DATE: 11/27/16 TIME: 14:30 Assessment/Plan VTE Prophylaxis VTE Prophylaxis Intervention: SCD's Lines/Catheters IV [facility]from [facility] Saline Lock Urinary Cath still in place: No Assessment/Plan Chief Complaint/Hosp Course 1. Acute respiratory failure. Hypoxic. Secondary to asthma exacerbation. cont on bronchodilators and o2 as needed. cont on steroid 2. Acute asthma exacerbation. Patient with history of frequent asthma exacerbation. cont on breathing tx. 3. Human immunodeficiency virus positive status. Now with AIDS with CD4 less than 200. cont antiretrovirals. Continue with ID recommendations 4. History of herpes simplex virus. Antiretrovirals per ID 5. Substance abuse. The patient denies any regular use of marijuana and methamphetamine. However, the patient's urine drug screen is positive for both marijuana and methamphetamines. Cessation advised DISPO/PLAN: Continue on breathing treatments. Await clinical improvement of respiratory status Discussed plan of care with Dr. Espinosa Problems: Subjective 24 Hr Interval Summary Free Text/Dictation Still reports having some shortness of breath. Slightly lethargic Exam/Review of Systems Vital Signs Vitals Vital Signs Date Time Temp Pulse Resp B/P Pulse Ox O2 Delivery O2 Flow Rate FiO2 11/27/16 11:49 112 20 95 Nasal Cannula 3.0 32 11/27/16 08:04 98.8 141/84 Intake and Output 11/26/16 11/26/16 11/27/16 14:59 22:59 06:59 Intake Total 1360 ml 460 ml Output Total 0 ml Balance 1360 ml 460 ml Exam General: In mild distress. Reports some shortness of breath. Slightly lethargic Eyes: pupils equal round, Anicteric sclera Neck: Supple nontender, no JVD Cardiac: S1, S2 auscultated, regular rhythm and rate Pulmonary: wheezing auscultated bilaterally GI: Abdomen soft nontender nondistended, bowel sounds active Extremities: No edema bilateral lower extremities Skin: Clean dry and intact Neurologic: Alert to person place and time and situation Results Result Diagram: 11/26/1641911/26/16419 Medications Medications Current Medications Ondansetron HCl (Zofran Inj) 4 mg Q6H PRN IV NAUSEA AND/OR VOMITING Last administered on 11/27/16t 14:12; Admin Dose 4 MG; Start 11/24/16 at 14:00 Acetaminophen (Tylenol Tab) 650 mg Q6H PRN PO PAIN LEVEL 1-3 OR FEVER Last administered on 11/26/16 20:17; Admin Dose 650 MG; Start 11/24/16 at 14:00 Acetaminophen/ Hydrocodone Bitart ([place] (5/325)) 1 tab Q6H PRN PO MODERATE PAIN LEVEL 4-6; Start 11/24/16 at 14:00 Morphine Sulfate (morphine) 2 mg Q4H PRN IV SEVERE PAIN LEVEL 7-10 Last administered on 11/27/16 14:09; Admin Dose 2 MG; Start 11/24/16 at 14:00 Magnesium Hydroxide (Milk Of Mag) 30 ml DAILY PRN PO CONSTIPATION; Start at 14:00 Bisacodyl (Dulcolax) 5 mg DAILY PRN PO CONSTIPATION; Start 11/24/16 at 14:00 Zolpidem Tartrate (Ambien) 5 mg QHS PRN PO SLEEP; Start 11/24/16 at 14:00 Famotidine (Pepcid) 20 mg Q12 PO Last administered on 11/27/16 09:14; Admin Dose 20 MG; Start 11/24/16 at 21:00 Enoxaparin Sodium (Lovenox) 40 mg DAILY SC ; Start 11/25/16 at 09:00 Montelukast Sodium (Singulair) 10 mg HS PO Last administered on 11/26/16 20:13 ; Admin Dose 10 MG; Start 11/24/16 at 21:00 Abacavir/ Lamivudine (Epzicom) 1 tab DAILY PO Last administered on 11/27/16 09 :14; Admin Dose 1 TAB; Start 11/25/16 at 09:00 Dolutegravir Sodium (Tivicay) 50 mg DAILY PO Last administered on 11/27/16 09: 14; Admin Dose 50 MG; Start 11/25/16 at 09:00 Lorazepam (Ativan) 1 mg Q6H PRN IV Anxiety Last administered on 11/27/16 12:09 ; Admin Dose 1 MG; Start 11/24/16 at 17:00 Methylprednisolone Sodium Succinate (Solu-Medrol) 40 mg Q6 IV Last administered on 11/27/16 12:09; Admin Dose 40 MG; Start 11/25/16 at 18:00 Cholecalciferol (Vitamin D) 800 units DAILY PO Last administered on 11/27/16 09:15; Admin Dose 800 UNITS; Start 11/26/16 at 09:00 Diphenhydramine HCl 25 mg 25 mg Q6H PRN PO ITCHING Last administered on 22:23; Admin Dose 25 MG; Start 11/25/16 at 21:30 Levofloxacin/ Dextrose 100 ml @ 100 mls/hr Q24H IVPB Last administered on 11/27 12:10; Admin Dose 100 MLS/HR; Start 11/27/16 at 12:00 Ceftriaxone Sodium (Rocephin) 50 ml @ 100 mls/hr Q24H IVPB Last administered on 11/27/16 14:09; Admin Dose 100 MLS/HR; Start 11/27/16 at 12:30 Fluconazole (Diflucan) 100 mg DAILY PO Last administered on 11/27/16 12:44; Admin Dose 100 MG; Start 11/27/16 at 12:30 Trimethoprim/ Sulfamethoxazole (Bactrim (Ds)) 1 tab DAILY PO Last administered on 11/27/16 12:44; Admin Dose 1 TAB; Start 11/27/16 at 12:30 Acyclovir (Zovirax) 400 mg BID PO ; Start 11/27/16 at 21:00 YAMEL MEREDITH Nov 27, 2016 14:33
[2016-11-27 20:20] VITALS: BP 124/85; RESP 20
[2016-11-27] MEDS: GUAIFENESIN LA 600 MG TABSR PO SCH (21:09)
[2016-11-27] MEDS: MONTELUKAST 10 MG TAB PO SCH (21:09)
[2016-11-27] MEDS: ACYCLOVIR 400 MG TAB PO SCH (21:09)
[2016-11-28] MEDS: METHYLPREDNISOLONE 40 MG INJ IV SCH ×4 (00:06→18:28)
[2016-11-28] MEDS: morphine 2 MG INJ IV PRN ×4 (00:57→18:38)
[2016-11-28] MEDS: LORAZEPAM 2 MG INJ IV PRN ×2 (00:57→21:34)
[2016-11-28] MEDS: ALBUTEROL/IPRATROPIUM (NEB) 3 ML AMP HHN PRN (05:23)
[2016-11-28 05:34] VITALS: PULSE 78
[2016-11-28 07:34] VITALS: BP 126/92; RESP 22
[2016-11-28] MEDS: FLUCONAZOLE 100 MG TAB PO SCH (08:14)
[2016-11-28] MEDS: TRIMETHOPRIM/SULFAMETHOX (DS) TAB PO SCH (08:15)
[2016-11-28] MEDS: FAMOTIDINE 20 MG TAB PO SCH ×2 (08:15→21:32)
[2016-11-28] MEDS: DOLUTEGRAVIR SODIUM 50 MG TABLET PO SCH (08:16)
[2016-11-28] MEDS: ABACAVIR/LAMIVUDINE TAB PO SCH (08:16)
[2016-11-28] MEDS: CHOLECALCIFEROL 400 UNITS TAB PO SCH (08:16)
[2016-11-28] MEDS: GUAIFENESIN LA 600 MG TABSR PO SCH ×3 (08:17→21:32)
[2016-11-28] MEDS: ACYCLOVIR 400 MG TAB PO SCH ×3 (08:17→21:00)
[2016-11-28] MEDS: ENOXAPARIN 40 MG/0.4 ML SYG SC SCH (08:21)
[2016-11-28] MEDS: ALBUTEROL/IPRATROPIUM (NEB) 3 ML AMP HHN SCH ×4 (08:30→20:06)
[2016-11-28 08:34] VITALS: PULSE 94
--- NOTE | 2016-11-28 11:42 | PN ---
DATE: 11/28/2016 SUBJECTIVE: The patient still has significant cough, shortness of breath, and mild wheezing on ausc ultation. OBJECTIVE: VITAL SIGNS: Temperature 98, pulse 94, blood pressure 126/92, O2 saturation 99% on 3 L nasal cannul a. NECK: Supple. No JVD or lymphadenopathy. CARDIAC: S1, S2, no added sounds or murmurs. CHEST: Diminished air entry in both lung longo with marked prolonged expiratory wheeze. ABDOMEN: Soft, nontender. No guarding or rebound. EXTREMITIES: No cyanosis, clubbing, edema. NEUROLOGIC: Grossly intact. No focal deficits. LABORATORIES: White count 14.5, hemoglobin 13.7. Chemistry within normal limits. IMAGING: Chest x-ray on admission had shown no significant infiltrates or effusions. IMPRESSION AND PLAN: 1. Acute bronchitis. 2. History of asthma. 3. Human immunodeficiency virus with noncompliance. 4. History of herpes simplex. The patient will require: 1. Continued steroids. 2. Continue antibiotics. 3. Bronchodilators. 4. Supplemental O2. 5. Human immunodeficiency virus medications. 6. DVT and GI prophylaxis. Dictated By: NATALIIA PEREZ/HI Conf#: [id number] DID#: [id number]
[2016-11-28] MEDS: LEVOFLOXACIN 500MG/D5W (PMX) 100 ML IVPB SCH (11:53)
[2016-11-28] MEDS: CEFTRIAXONE 1 GM/50 ML (PMX) 50 ML IVPB SCH (13:25)
[2016-11-28] MEDS: ONDANSETRON 4 MG INJ IV PRN ×2 (13:25→21:34)
--- NOTE | 2016-11-28 14:54 | CONS ---
Date/Time of Note Date/Time of Note DATE: 11/28/16 TIME: 14:51 Assessment/Plan Assessment/Plan Chief Complaint/Hosp Course SUBJECTIVE: No acute events overnight. The patient is alert, lying comfortably in bed. No fevers. No labs this morning. MICROBIOLOGY: Blood culture on admission grew Leuconostoc sp. Repeat blood cultures negative. Urine culture was consistent with contaminant. Urinalysis was positive on admission. ANTIMICROBIALS: The patient is on: 1. Levaquin. 2. Rocephin 3. Bactrim DS daily 4. Diflucan 5. Acyclovir 4. LOONEY PHYSICAL EXAMINATION: GENERAL: This is a well-developed woman who is in no distress. HEENT: Head atraumatic, normocephalic. Sclerae anicteric. Buccal mucosa dry. NECK: Supple, trachea midline. CHEST: Rise symmetrical. Breath sounds diminished. HEART: S1, S2. ABDOMEN: Soft, bowel tones present. EXTREMITIES: No cyanosis. ASSESSMENT: 1. Acute asthma exacerbation and acute bronchitis. 2. AIDS with a recent CD4 count on this admission of 153. 3. Bacteremia, possibly secondary to urinary tract infection versus secondary to pulmonary source. 4. History of herpes simplex virus and HPV. 5. History of noncompliance with HIV meds. PLAN: Stable, continue abx, steroids/BD's and prophylactic meds, encourage compliance, and f/u with HIV clinic OP DW patient Problems: Consultation Date/Type/Reason Admit Date/Time Nov 24, 2016 at 13:15 Initial Consult Date 11/27/16 Type of Consultation: ID Exam/Review of Systems Vital Signs Vitals Vital Signs Date Time Temp Pulse Resp B/P Pulse Ox O2 Delivery O2 Flow Rate FiO2 11/28/16 14:47 84 20 99 Nasal Cannula 3.0 11/28/16 08:34 30 11/28/16 07:34 97.6 126/92 Intake and Output 11/27/16 11/27/16 11/28/16 15:00 23:00 07:00 Intake Total 200 ml 800 ml 600 ml Balance 200 ml 800 ml 600 ml Results Result Diagram: 11/26/16 0420 11/26/16 0420 Medications Medications Current Medications Ondansetron HCl (Zofran Inj) 4 mg Q6H PRN IV NAUSEA AND/OR VOMITING Last administered on 11/28/16t 13:25; Admin Dose 4 MG; Start 11/24/16 at 14:00 Acetaminophen (Tylenol Tab) 650 mg Q6H PRN PO PAIN LEVEL 1-3 OR FEVER Last administered on 11/26/16 20:17; Admin Dose 650 MG; Start 11/24/16 at 14:00 Acetaminophen/ Hydrocodone Bitart ([place] (5/325)) 1 tab Q6H PRN PO MODERATE PAIN LEVEL 4-6; Start 11/24/16 at 14:00 Magnesium Hydroxide (Milk Of Mag) 30 ml DAILY PRN PO CONSTIPATION; Start at 14:00 Bisacodyl (Dulcolax) 5 mg DAILY PRN PO CONSTIPATION; Start 11/24/16 at 14:00 Zolpidem Tartrate (Ambien) 5 mg QHS PRN PO SLEEP; Start 11/24/16 at 14:00 Famotidine (Pepcid) 20 mg Q12 PO Last administered on 11/28/16 08:15; Admin Dose 20 MG; Start 11/24/16 at 21:00 Enoxaparin Sodium (Lovenox) 40 mg DAILY SC ; Start 11/25/16 at 09:00 Montelukast Sodium (Singulair) 10 mg HS PO Last administered on 11/27/16 21:09 ; Admin Dose 10 MG; Start 11/24/16 at 21:00 Abacavir/ Lamivudine (Epzicom) 1 tab DAILY PO Last administered on 11/28/16 08: 16; Admin Dose 1 TAB; Start 11/25/16 at 09:00 Dolutegravir Sodium (Tivicay) 50 mg DAILY PO Last administered on 11/28/16 08: 16; Admin Dose 50 MG; Start 11/25/16 at 09:00 Lorazepam (Ativan) 1 mg Q6H PRN IV Anxiety Last administered on 11/28/16 00:57 ; Admin Dose 1 MG; Start 11/24/16 at 17:00 Methylprednisolone Sodium Succinate (Solu-Medrol) 40 mg Q6 IV Last administered on 11/28/16 11:47; Admin Dose 40 MG; Start 11/25/16 at 18:00 Cholecalciferol (Vitamin D) 800 units DAILY PO Last administered on 11/28/16 08 :16; Admin Dose 800 UNITS; Start 11/26/16 at 09:00 Diphenhydramine HCl 25 mg 25 mg Q6H PRN PO ITCHING Last administered on 22:23; Admin Dose 25 MG; Start 11/25/16 at 21:30 Levofloxacin/ Dextrose 100 ml @ 100 mls/hr Q24H IVPB Last administered on 11:53; Admin Dose 100 MLS/HR; Start 11/27/16 at 12:00 Ceftriaxone Sodium (Rocephin) 50 ml @ 100 mls/hr Q24H IVPB Last administered on 11/28/16 13:25; Admin Dose 100 MLS/HR; Start 11/27/16 at 12:30 Fluconazole (Diflucan) 100 mg DAILY PO Last administered on 11/28/16 08:14; Admin Dose 100 MG; Start 11/27/16 at 12:30 Trimethoprim/ Sulfamethoxazole (Bactrim (Ds)) 1 tab DAILY PO Last administered on 11/28/16 08:15; Admin Dose 1 TAB; Start 11/27/16 at 12:30 Acyclovir (Zovirax) 400 mg BID PO Last administered on 11/27/16 21:09; Admin Dose 400 MG; Start 11/27/16 at 21:00 Morphine Sulfate (morphine) 1 mg Q4H PRN IV SEVERE PAIN LEVEL 7-10 Last administered on 11/28/16 09:47; Admin Dose 1 MG; Start 11/27/16 at 18:00 Guaifenesin (Mucinex) 600 mg BID PO Last administered on 11/28/16 08:17; Admin Dose 600 MG; Start 11/27/16 at 21:00 JHONATAN BRIGHT NP Nov 28, 2016 14:54
--- NOTE | 2016-11-28 15:27 | PN ---
Date/Time of Note Date/Time of Note DATE: 11/28/16 TIME: 15:24 Assessment/Plan VTE Prophylaxis VTE Prophylaxis Intervention: SCD's Lines/Catheters [facility] Peripheral IV Urinary Cath still in place: No Assessment/Plan Chief Complaint/Hosp Course 1. Acute respiratory failure. Hypoxic. Secondary to asthma exacerbation. Of note, patient did report that she ran out of her medications at home and was not taking her bronchodilators. Cont on bronchodilators and o2 as needed while inpatient. cont on steroid. Continue with digital forensic examiner recommendations 2. Acute asthma exacerbation. Patient with history of frequent asthma exacerbation. Cinder Pitman following. Continue recommendations. Continue with breathing treatments 3. Human immunodeficiency virus positive status. Now with AIDS with CD4 less than 200. cont antiretrovirals. 4. History of herpes simplex virus. Antiretrovirals per ID 5. Substance abuse. The patient denies any regular use of marijuana and methamphetamine. However, the patient's urine drug screen is positive for both marijuana and methamphetamines. Cessation advised 6. Medical noncompliance. Patient did report that she has not been taking her HIV medication or her inhalers at home due to the fact that she ran out of them. She was instructed to follow-up with clinic however did not. Patient advised about need for medical compliance DISPO/PLAN: Still with shortness of breath. Bronchodilators around the clock. Await clinical improvement of respiratory status Discussed plan of care with Dr. Espinosa Problems: Subjective 24 Hr Interval Summary Free Text/Dictation Still states she has moderate shortness of breath Exam/Review of Systems Vital Signs Vitals Vital Signs Date Time Temp Pulse Resp B/P Pulse Ox O2 Delivery O2 Flow Rate FiO2 11/28/16 14:47 84 20 99 Nasal Cannula 3.0 11/28/16 08:34 30 11/28/16 07:34 97.6 126/92 Intake and Output 11/27/16 11/27/16 11/28/16 15:00 23:00 07:00 Intake Total 200 ml 800 ml 600 ml Balance 200 ml 800 ml 600 ml Exam General: Lethargic. Noted with shortness of breath Eyes: pupils equal round, Anicteric sclera Neck: Supple nontender, no JVD Cardiac: S1-S2 auscultated. Remains regular rate Pulmonary: Wheezing auscultated bilateral lung longo with bases noted to be diminished GI: Soft nontender nondistended Extremities: No edema bilateral lower extremities Skin: Clean dry and intact Neurologic: Alert to person place and time and situation however slightly lethargic Results Result Diagram: 11/26/1641911/26/16419 Medications Medications Current Medications Ondansetron HCl (Zofran Inj) 4 mg Q6H PRN IV NAUSEA AND/OR VOMITING Last administered on 11/28/16 13:25; Admin Dose 4 MG; Start 11/24/16 at 14:00 Acetaminophen (Tylenol Tab) 650 mg Q6H PRN PO PAIN LEVEL 1-3 OR FEVER Last administered on 11/26/16 20:17; Admin Dose 650 MG; Start 11/24/16 at 14:00 Acetaminophen/ Hydrocodone Bitart ([place] (5/325)) 1 tab Q6H PRN PO MODERATE PAIN LEVEL 4-6; Start 11/24/16 at 14:00 Magnesium Hydroxide (Milk Of Mag) 30 ml DAILY PRN PO CONSTIPATION; Start at 14:00 Bisacodyl (Dulcolax) 5 mg DAILY PRN PO CONSTIPATION; Start 11/24/16 at 14:00 Zolpidem Tartrate (Ambien) 5 mg QHS PRN PO SLEEP; Start 11/24/16 at 14:00 Famotidine (Pepcid) 20 mg Q12 PO Last administered on 11/28/16 08:15; Admin Dose 20 MG; Start 11/24/16 at 21:00 Enoxaparin Sodium (Lovenox) 40 mg DAILY SC ; Start 11/25/16 at 09:00 Montelukast Sodium (Singulair) 10 mg HS PO Last administered on 11/27/16 21:09 ; Admin Dose 10 MG; Start 11/24/16 at 21:00 Abacavir/ Lamivudine (Epzicom) 1 tab DAILY PO Last administered on 11/28/16 08: 16; Admin Dose 1 TAB; Start 11/25/16 at 09:00 Dolutegravir Sodium (Tivicay) 50 mg DAILY PO Last administered on 11/28/16 08: 16; Admin Dose 50 MG; Start 11/25/16 at 09:00 Lorazepam (Ativan) 1 mg Q6H PRN IV Anxiety Last administered on 11/28/16 00:57 ; Admin Dose 1 MG; Start 11/24/16 at 17:00 Methylprednisolone Sodium Succinate (Solu-Medrol) 40 mg Q6 IV Last administered on 11/28/16 11:47; Admin Dose 40 MG; Start 11/25/16 at 18:00 Cholecalciferol (Vitamin D) 800 units DAILY PO Last administered on 11/28/16 08 :16; Admin Dose 800 UNITS; Start 11/26/16 at 09:00 Diphenhydramine HCl 25 mg 25 mg Q6H PRN PO ITCHING Last administered on 22:23; Admin Dose 25 MG; Start 11/25/16 at 21:30 Levofloxacin/ Dextrose 100 ml @ 100 mls/hr Q24H IVPB Last administered on 11:53; Admin Dose 100 MLS/HR; Start 11/27/16 at 12:00 Ceftriaxone Sodium (Rocephin) 50 ml @ 100 mls/hr Q24H IVPB Last administered on 11/28/16 13:25; Admin Dose 100 MLS/HR; Start 11/27/16 at 12:30 Fluconazole (Diflucan) 100 mg DAILY PO Last administered on 11/28/16 08:14; Admin Dose 100 MG; Start 11/27/16 at 12:30 Trimethoprim/ Sulfamethoxazole (Bactrim (Ds)) 1 tab DAILY PO Last administered on 11/28/16 08:15; Admin Dose 1 TAB; Start 11/27/16 at 12:30 Acyclovir (Zovirax) 400 mg BID PO Last administered on 11/27/16 21:09; Admin Dose 400 MG; Start 11/27/16 at 21:00 Morphine Sulfate (morphine) 1 mg Q4H PRN IV SEVERE PAIN LEVEL 7-10 Last administered on 11/28/16 09:47; Admin Dose 1 MG; Start 11/27/16 at 18:00 Guaifenesin (Mucinex) 600 mg BID PO Last administered on 11/28/16 08:17; Admin Dose 600 MG; Start 11/27/16 at 21:00 YAMEL MEREDITH Nov 28, 2016 15:27
--- NOTE | 2016-11-28 16:13 | RADRPT ---
Echocardiogram Report Patient Name: FAITH BRUCE Gender: Female Date: 1990 Study Date: 27-Nov-2016 Solar Engineer: Homer Constantino RADHA Location: [facility] Ref. Physician: JHONATAN BRIGHT Quality: Good Procedures: Transthoracic echocardiogram with complete 2D, M-Mode, and doppler examination. Indications: R/O Endocarditis. 2D/M Mode Doppler Measurement Value Normal Ranges Measurement Value Normal Ranges LVIDd 2D 4.2 3.5 - 5.6 cm AV Peak Sha 1.2 m/sec LVIDs 2D 2.8 2.1 - 4.1 cm AV Peak PG 5.7 mmHg LVPWd 2D 1.0 0.6 - 1.1 cm LVOT Peak Sha 1.0 m/sec IVSd 2D 0.9 0.6 - 1.1 cm LVOT Peak PG 4.1 mmHg AoR Diam 2D 2.4 2.0 - 3.7 cm MV E Peak Sha 0.8 m/sec EDV 2D 78.0 cm3 MV A Peak Sha 0.5 m/sec ESV 2D 22.8 cm3 MV E/A 1.6 LA Dimen 2D 2.7 2.3 - 4.0 cm MV Decel Time 214 msec MV Decel [place] 4 MV E/A 1.6 Findings Left Ventricle: Normal left ventricular systolic function. Normal left ventricular cavity size. Normal left ventricular wall thickness. Ejection fraction is visually estimated at 55 %. Right Ventricle: Normal right ventricular size. Normal right ventricular systolic function. Left Atrium: The left atrium is normal in size. Right Atrium: The right atrium is normal in size. Mitral Valve: Normal appearance and function of the mitral valve with trace physiologic regurgitation. Aortic Valve: Normal appearance of the aortic valve. No significant aortic stenosis or insufficiency. Tricuspid Valve: Normal appearance and function of the tricuspid valve with trace physiologic regurgitation. Pulmonic Valve: Normal pulmonic valve appearance. Pericardium: Normal pericardium with no significant pericardial effusion. Aorta: Normal aortic root. IVC: Normal size and normal respiratory collapse consistent with normal right atrial pressure. Conclusions 1.Normal left ventricular systolic function. Normal left ventricular cavity size. Normal left ventricular wall thickness. Ejection fraction is visually estimated at 55 %. 2.Normal appearance and function of the mitral valve with trace physiologic regurgitation. 3.Normal appearance and function of the tricuspid valve with trace physiologic regurgitation. Electronically Signed By: Dave Rodriguez 28-Nov-2016 16:12:21 -0800 Patient Name: FAITH BRUCE Study Date: 27-Nov-2016 [id number]
[2016-11-28 19:35] VITALS: BP 117/66; RESP 20
[2016-11-28 20:08] VITALS: PULSE 89
[2016-11-28] MEDS: MONTELUKAST 10 MG TAB PO SCH (21:32)
[2016-11-29] MEDS: METHYLPREDNISOLONE 40 MG INJ IV SCH ×4 (00:21→18:27)
[2016-11-29] MEDS: ALBUTEROL/IPRATROPIUM (NEB) 3 ML AMP HHN SCH ×7 (00:42→20:16)
[2016-11-29] MEDS: morphine 2 MG INJ IV PRN ×3 (02:36→20:39)
[2016-11-29] MEDS: ONDANSETRON 4 MG INJ IV PRN ×2 (02:52→20:47)
[2016-11-29] MEDS: ALBUTEROL/IPRATROPIUM (NEB) 3 ML AMP HHN PRN ×2 (02:54→23:22)
[2016-11-29 02:56] VITALS: PULSE 83
[2016-11-29 06:13] LABS: ADD SCAN DIFF NO
[2016-11-29 06:34] LABS: POTASSIUM 4.5 mmol/L (3.5-5.1)
[2016-11-29 06:35] LABS: HEMATOCRIT 44.1 % (37.0-47.0); HEMOGLOBIN 14.7 g/dl (12.0-16.0); LYMPHOCYTES # 0.6 10^3/ul (0.8-2.9); LYMPHOCYTES % 7.6 % (15.0-51.0); MEAN CORPUSCULAR HEMOGLOBIN 28.3 pg (29.0-33.0); MEAN CORPUSCULAR HGB CONC 33.3 g/dl (32.0-37.0); MEAN PLATELET VOLUME 9.1 fl (7.4-10.4); MONOCYTE # 0.3 10^3/ul (0.3-0.9); NEUTROPHIL # 7.5 10^3/ul (1.6-7.5); NEUTROPHILS % 88.9 % (39.0-77.0); PLATELET COUNT 333 10^3/UL (140-415); RED BLOOD COUNT 5.19 10^6/ul (4.20-5.40); WHITE BLOOD COUNT 8.4 10^3/ul (4.8-10.8)
[2016-11-29 06:36] LABS: CREATININE 0.75 mg/dl (0.44-1.00)
[2016-11-29 06:37] LABS: CALCIUM 9.4 mg/dl (8.4-10.2); PHOSPHORUS 4.6 mg/dl (2.5-4.9)
[2016-11-29 06:38] LABS: MAGNESIUM 2.2 mg/dl (1.7-2.5)
[2016-11-29 07:51] VITALS: BP 95/53; RESP 18
[2016-11-29] MEDS: ENOXAPARIN 40 MG/0.4 ML SYG SC SCH (09:00)
[2016-11-29] MEDS: ACYCLOVIR 400 MG TAB PO SCH ×2 (09:00→21:00)
[2016-11-29] MEDS: TRIMETHOPRIM/SULFAMETHOX (DS) TAB PO SCH (09:47)
[2016-11-29] MEDS: GUAIFENESIN LA 600 MG TABSR PO SCH ×2 (09:47→20:48)
[2016-11-29] MEDS: CHOLECALCIFEROL 400 UNITS TAB PO SCH (09:48)
[2016-11-29] MEDS: FAMOTIDINE 20 MG TAB PO SCH ×2 (09:48→20:44)
[2016-11-29] MEDS: DOLUTEGRAVIR SODIUM 50 MG TABLET PO SCH (09:48)
[2016-11-29] MEDS: FLUCONAZOLE 100 MG TAB PO SCH (09:48)
[2016-11-29] MEDS: ABACAVIR/LAMIVUDINE TAB PO SCH (09:59)
[2016-11-29] MEDS: LORAZEPAM 2 MG INJ IV PRN ×2 (10:01→18:54)
--- NOTE | 2016-11-29 11:41 | CONS ---
Date/Time of Note Date/Time of Note DATE: 11/29/16 TIME: 11:39 Assessment/Plan Assessment/Plan Chief Complaint/Hosp Course SUBJECTIVE: No acute events overnight. The patient is alert, eating, looks comfortable. No fevers. MICROBIOLOGY: Blood culture on admission grew Leu[place]ost[place] sp. Repeat blood cultures negative. Urine culture was consistent with contaminant. Urinalysis was positive on admission. ANTIMICROBIALS: The patient is on: 1. Levaquin. 2. Rocephin 3. Bactrim DS daily 4. Diflucan 5. Acyclovir 4. LOONEY PHYSICAL EXAMINATION: GENERAL: This is a well-developed woman who is in no distress. HEENT: Head atraumatic, normocephalic. Sclerae anicteric. Buccal mucosa dry. NECK: Supple, trachea midline. CHEST: Rise symmetrical. Breath sounds diminished. HEART: S1, S2. ABDOMEN: Soft, bowel tones present. EXTREMITIES: No cyanosis. ASSESSMENT: 1. Acute asthma exacerbation and acute bronchitis==> improving. 2. AIDS with a recent CD4 count on this admission of 153. 3. Bacteremia, possibly secondary to urinary tract infection versus secondary to pulmonary source. 4. History of herpes simplex virus and HPV. 5. Noncompliance with HIV meds. PLAN: Clinically stable, continue abx, steroids/BD's and prophylactic meds, encourage compliance, and f/u with HIV clinic OP for management DW patient Problems: Consultation Date/Type/Reason Admit Date/Time Nov 24, 2016 at 13:15 Initial Consult Date 11/27/16 Type of Consultation: ID Exam/Review of Systems Vital Signs Vitals Vital Signs Date Time Temp Pulse Resp B/P Pulse Ox O2 Delivery O2 Flow Rate FiO2 11/29/16 08:28 93 20 97 21 11/29/16 07:51 97.8 95/53 11/29/16 05:59 3.0 11/29/16 05:54 Nasal Cannula Intake and Output 11/28/16 11/28/16 11/29/16 15:00 23:00 07:00 Intake Total 150 ml 1560 ml 600 ml Balance 150 ml 1560 ml 600 ml Results Result Diagram: 11/29/16 0525 11/29/16 0525 Results 24 hrs Laboratory Tests Test 11/29/16 05:25 Anion Gap 18 H Basophils # 0.0 Basophils % 0.0 Blood Urea Nitrogen 15 Calcium Level 9.4 Carbon Dioxide Level 23 Chloride Level 101 Creatinine 0.75 Eosinophils # 0.0 Eosinophils % 0.0 Glucose Level 122 Hematocrit 44.1 Hemoglobin 14.7 Lymphocytes # 0.6 L Lymphocytes % 7.6 L Magnesium Level 2.2 Mean Corpuscular Hemoglobin 28.3 L Mean Corpuscular Hemoglobin Concent 33.3 Mean Corpuscular Volume 85.0 Mean Platelet Volume 9.1 Monocytes # 0.3 Monocytes % 3.0 Neutrophils # 7.5 Neutrophils % 88.9 H Nucleated Red Blood Cells # 0.0 Nucleated Red Blood Cells % 0.0 Phosphorus Level 4.6 Platelet Count 333 Potassium Level 4.5 Red Blood Count 5.19 Red Cell Distribution Width 12.0 Sodium Level 137 White Blood Count 8.4 # Medications Medications Current Medications Ondansetron HCl (Zofran Inj) 4 mg Q6H PRN IV NAUSEA AND/OR VOMITING Last administered on 11/29/16 02:52; Admin Dose 4 MG; Start 11/24/16 at 14:00 Acetaminophen (Tylenol Tab) 650 mg Q6H PRN PO PAIN LEVEL 1-3 OR FEVER Last administered on 11/26/16 20:17; Admin Dose 650 MG; Start 11/24/16 at 14:00 Acetaminophen/ Hydrocodone Bitart ([place] (5/325)) 1 tab Q6H PRN PO MODERATE PAIN LEVEL 4-6; Start 11/24/16 at 14:00 Magnesium Hydroxide (Milk Of Mag) 30 ml DAILY PRN PO CONSTIPATION; Start at 14:00 Bisacodyl (Dulcolax) 5 mg DAILY PRN PO CONSTIPATION; Start 11/24/16 at 14:00 Zolpidem Tartrate (Ambien) 5 mg QHS PRN PO SLEEP; Start 11/24/16 at 14:00 Famotidine (Pepcid) 20 mg Q12 PO Last administered on 11/29/16 09:48; Admin Dose 20 MG; Start 11/24/16 at 21:00 Enoxaparin Sodium (Lovenox) 40 mg DAILY SC ; Start 11/25/16 at 09:00 Montelukast Sodium (Singulair) 10 mg HS PO Last administered on 11/27/16 21:09 ; Admin Dose 10 MG; Start 11/24/16 at 21:00 Abacavir/ Lamivudine (Epzicom) 1 tab DAILY PO Last administered on 11/29/16 09: 59; Admin Dose 1 TAB; Start 11/25/16 at 09:00 Dolutegravir Sodium (Tivicay) 50 mg DAILY PO Last administered on 11/29/16 09: 48; Admin Dose 50 MG; Start 11/25/16 at 09:00 Lorazepam (Ativan) 1 mg Q6H PRN IV Anxiety Last administered on 11/29/16 10:01 ; Admin Dose 1 MG; Start 11/24/16 at 17:00 Methylprednisolone Sodium Succinate (Solu-Medrol) 40 mg Q6 IV Last administered on 11/29/16 06:35; Admin Dose 40 MG; Start 11/25/16 at 18:00 Cholecalciferol (Vitamin D) 800 units DAILY PO Last administered on 11/29/16 09 :48; Admin Dose 800 UNITS; Start 11/26/16 at 09:00 Diphenhydramine HCl 25 mg 25 mg Q6H PRN PO ITCHING Last administered on 22:23; Admin Dose 25 MG; Start 11/25/16 at 21:30 Levofloxacin/ Dextrose 100 ml @ 100 mls/hr Q24H IVPB Last administered on 11:53; Admin Dose 100 MLS/HR; Start 11/27/16 at 12:00 Ceftriaxone Sodium (Rocephin) 50 ml @ 100 mls/hr Q24H IVPB Last administered on 11/28/16 13:25; Admin Dose 100 MLS/HR; Start 11/27/16 at 12:30 Fluconazole (Diflucan) 100 mg DAILY PO Last administered on 11/29/16 09:48; Admin Dose 100 MG; Start 11/27/16 at 12:30 Trimethoprim/ Sulfamethoxazole (Bactrim (Ds)) 1 tab DAILY PO Last administered on 11/29/16 09:47; Admin Dose 1 TAB; Start 11/27/16 at 12:30 Acyclovir (Zovirax) 400 mg BID PO Last administered on 11/27/16 21:09; Admin Dose 400 MG; Start 11/27/16 at 21:00 Morphine Sulfate (morphine) 1 mg Q4H PRN IV SEVERE PAIN LEVEL 7-10 Last administered on 11/29/16 06:36; Admin Dose 1 MG; Start 11/27/16 at 18:00 Guaifenesin (Mucinex) 600 mg BID PO Last administered on 11/29/16 09:47; Admin Dose 600 MG; Start 11/27/16 at 21:00 JHONATAN BRIGHT NP Nov 29, 2016 11:41
[2016-11-29] MEDS: LEVOFLOXACIN 500MG/D5W (PMX) 100 ML IVPB SCH (13:39)
[2016-11-29] MEDS: CEFTRIAXONE 1 GM/50 ML (PMX) 50 ML IVPB SCH (14:56)
--- NOTE | 2016-11-29 15:23 | PN ---
Date/Time of Note Date/Time of Note DATE: 11/29/16 TIME: 15:20 Assessment/Plan VTE Prophylaxis VTE Prophylaxis Intervention: SCD's Lines/Catheters IV [facility] [place] Urinary Cath still in place: No Assessment/Plan Chief Complaint/Hosp Course 1. Acute respiratory failure. Hypoxic. Secondary to asthma exacerbation. cont on bronchodilators . Titrate off O2 as possible 2. Acute asthma exacerbation. Patient with history of frequent asthma exacerbation. cont on breathing tx. of note less wheezing auscultated today 3. Human immunodeficiency virus positive status. Now with AIDS with CD4 less than 200. cont antiretrovirals. Continue with ID recommendations. Patient advised about medical compliance with her antiretrovirals 4. History of herpes simplex virus. Antiretrovirals per ID. Stable at present 5. Substance abuse. The patient denies any regular use of marijuana and methamphetamine. However, the patient's urine drug screen is positive for both marijuana and methamphetamines. Cessation advised. DISPO/PLAN: Continue antibiotics. Titrate off O2 today. Case management to follow for possible housing. animal husbandry worker to follow. Discharge when cleared by consultants Discussed plan of care with Dr. Espinosa Problems: Subjective 24 Hr Interval Summary Free Text/Dictation Still shortness of breath. Reports significant weakness with little ambulation Exam/Review of Systems Vital Signs Vitals Vital Signs Date Time Temp Pulse Resp B/P Pulse Ox O2 Delivery O2 Flow Rate FiO2 11/29/16 13:47 103 24 92 Nasal Cannula 11/29/16 13:47 2.0 11/29/16 08:28 21 11/29/16 07:51 97.8 95/53 Intake and Output 11/28/16 11/28/16 11/29/16 15:00 23:00 07:00 Intake Total 150 ml 1560 ml 600 ml Balance 150 ml 1560 ml 600 ml Exam General: Lethargic. Noted with shortness of breath Eyes: pupils equal round, Anicteric sclera Neck: Supple nontender, no JVD Cardiac: S1-S2 auscultated. Remains regular rate Pulmonary: Wheezing auscultated bilateral lung longo with bases noted to be diminished GI: Soft nontender nondistended Extremities: No edema bilateral lower extremities Skin: Clean dry and intact Neurologic: Alert to person place and time and situation however slightly lethargic Results Result Diagram: 3/2/17 0525 3/2/17 0525 Results 24 hrs Laboratory Tests Test 11/29/16 05:25 Anion Gap 18 H Basophils # 0.0 Basophils % 0.0 Blood Urea Nitrogen 15 Calcium Level 9.4 Carbon Dioxide Level 23 Chloride Level 101 Creatinine 0.75 Eosinophils # 0.0 Eosinophils % 0.0 Glucose Level 122 Hematocrit 44.1 Hemoglobin 14.7 Lymphocytes # 0.6 L Lymphocytes % 7.6 L Magnesium Level 2.2 Mean Corpuscular Hemoglobin 28.3 L Mean Corpuscular Hemoglobin Concent 33.3 Mean Corpuscular Volume 85.0 Mean Platelet Volume 9.1 Monocytes # 0.3 Monocytes % 3.0 Neutrophils # 7.5 Neutrophils % 88.9 H Nucleated Red Blood Cells # 0.0 Nucleated Red Blood Cells % 0.0 Phosphorus Level 4.6 Platelet Count 333 Potassium Level 4.5 Red Blood Count 5.19 Red Cell Distribution Width 12.0 Sodium Level 137 White Blood Count 8.4 # Medications Medications Current Medications Ondansetron HCl (Zofran Inj) 4 mg Q6H PRN IV NAUSEA AND/OR VOMITING Last administered on 11/29/16 02:52; Admin Dose 4 MG; Start 11/24/16 at 14:00 Acetaminophen (Tylenol Tab) 650 mg Q6H PRN PO PAIN LEVEL 1-3 OR FEVER Last administered on 11/26/16 20:17; Admin Dose 650 MG; Start 11/24/16 at 14:00 Acetaminophen/ Hydrocodone Bitart ([place] (5/325)) 1 tab Q6H PRN PO MODERATE PAIN LEVEL 4-6; Start 11/24/16 at 14:00 Magnesium Hydroxide (Milk Of Mag) 30 ml DAILY PRN PO CONSTIPATION; Start at 14:00 Bisacodyl (Dulcolax) 5 mg DAILY PRN PO CONSTIPATION; Start 11/24/16 at 14:00 Zolpidem Tartrate (Ambien) 5 mg QHS PRN PO SLEEP; Start 11/24/16 at 14:00 Famotidine (Pepcid) 20 mg Q12 PO Last administered on 11/29/16 09:48; Admin Dose 20 MG; Start 11/24/16 at 21:00 Enoxaparin Sodium (Lovenox) 40 mg DAILY SC ; Start 11/25/16 at 09:00 Montelukast Sodium (Singulair) 10 mg HS PO Last administered on 11/27/16 21:09 ; Admin Dose 10 MG; Start 11/24/16 at 21:00 Abacavir/ Lamivudine (Epzicom) 1 tab DAILY PO Last administered on 11/29/16 09: 59; Admin Dose 1 TAB; Start 11/25/16 at 09:00 Dolutegravir Sodium (Tivicay) 50 mg DAILY PO Last administered on 11/29/16 09: 48; Admin Dose 50 MG; Start 11/25/16 at 09:00 Lorazepam (Ativan) 1 mg Q6H PRN IV Anxiety Last administered on 11/29/16 10:01 ; Admin Dose 1 MG; Start 11/24/16 at 17:00 Methylprednisolone Sodium Succinate (Solu-Medrol) 40 mg Q6 IV Last administered on 11/29/16 13:38; Admin Dose 40 MG; Start 11/25/16 at 18:00 Cholecalciferol (Vitamin D) 800 units DAILY PO Last administered on 11/29/16 09 :48; Admin Dose 800 UNITS; Start 11/26/16 at 09:00 Diphenhydramine HCl 25 mg 25 mg Q6H PRN PO ITCHING Last administered on 22:23; Admin Dose 25 MG; Start 11/25/16 at 21:30 Levofloxacin/ Dextrose 100 ml @ 100 mls/hr Q24H IVPB Last administered on 13:39; Admin Dose 100 MLS/HR; Start 11/27/16 at 12:00 Ceftriaxone Sodium (Rocephin) 50 ml @ 100 mls/hr Q24H IVPB Last administered on 11/29/16 14:56; Admin Dose 100 MLS/HR; Start 11/27/16 at 12:30 Fluconazole (Diflucan) 100 mg DAILY PO Last administered on 11/29/16 09:48; Admin Dose 100 MG; Start 11/27/16 at 12:30 Trimethoprim/ Sulfamethoxazole (Bactrim (Ds)) 1 tab DAILY PO Last administered on 11/29/16 09:47; Admin Dose 1 TAB; Start 11/27/16 at 12:30 Acyclovir (Zovirax) 400 mg BID PO Last administered on 11/27/16 21:09; Admin Dose 400 MG; Start 11/27/16 at 21:00 Morphine Sulfate (morphine) 1 mg Q4H PRN IV SEVERE PAIN LEVEL 7-10 Last administered on 11/29/16 06:36; Admin Dose 1 MG; Start 11/27/16 at 18:00 Guaifenesin (Mucinex) 600 mg BID PO Last administered on 11/29/16 09:47; Admin Dose 600 MG; Start 11/27/16 at 21:00 YAMEL MEREDITH Nov 29, 2016 15:23
--- NOTE | 2016-11-29 16:55 | RADRPT ---
PROCEDURE: XR Chest. CLINICAL INDICATION: Shortness of breath. TECHNIQUE: Single frontal view. COMPARISON: 11/24/2016. FINDINGS: There is mild left basilar atelectasis. The lungs are otherwise clear. The heart size is normal. There is no pleural effusion. There is no pneumothorax. IMPRESSION: 1. Mild left basilar atelectasis. 2. Otherwise normal chest radiograph. RPTAT: QQ .Russel Pearson MD, MD Date Time Electronically viewed and signed by .Russel Pearson MD, MD on 11/29/2016 16:55 .R/
[2016-11-29 19:00] VITALS: BP 135/69; RESP 18
[2016-11-29] MEDS ORDERED: VITAMIN A & D 5 GM OINT PACKET TOP ONE (19:36)
[2016-11-29] MEDS: MONTELUKAST 10 MG TAB PO SCH (20:44)
[2016-11-30] MEDS: METHYLPREDNISOLONE 40 MG INJ IV SCH ×2 (00:04→05:42)
[2016-11-30] MEDS: morphine 2 MG INJ IV PRN ×3 (00:34→14:37)
[2016-11-30] MEDS: ALBUTEROL/IPRATROPIUM (NEB) 3 ML AMP HHN SCH ×5 (02:40→16:51)
[2016-11-30] MEDS: ONDANSETRON 4 MG INJ IV PRN (05:42)
[2016-11-30 06:25] LABS: ADD SCAN DIFF NO
[2016-11-30 06:29] LABS: ABNORMAL IP MESSAGE 1; BASOPHILS % 0.1 % (0.0-2.0); HEMATOCRIT 43.9 % (37.0-47.0); HEMOGLOBIN 14.4 g/dl (12.0-16.0); LYMPHOCYTES # 0.5 10^3/ul (0.8-2.9); LYMPHOCYTES % 5.3 % (15.0-51.0); MEAN CORPUSCULAR HEMOGLOBIN 28.1 pg (29.0-33.0); MEAN CORPUSCULAR HGB CONC 32.8 g/dl (32.0-37.0); MEAN CORPUSCULAR VOLUME 85.6 fl (82.0-101.0); MEAN PLATELET VOLUME 8.9 fl (7.4-10.4); MONOCYTE # 0.3 10^3/ul (0.3-0.9); MONOCYTES % 3.3 % (0.0-11.0); NEUTROPHILS % 90.5 % (39.0-77.0); PLATELET COUNT 382 10^3/UL (140-415); RED BLOOD COUNT 5.13 10^6/ul (4.20-5.40); RED CELL DISTRIBUTION WIDTH 11.8 % (11.5-14.5)
[2016-11-30 06:56] LABS: POTASSIUM 4.3 mmol/L (3.5-5.1)
[2016-11-30 06:59] LABS: CREATININE 0.78 mg/dl (0.44-1.00)
[2016-11-30 07:00] LABS: CALCIUM 9.6 mg/dl (8.4-10.2)
[2016-11-30 07:23] VITALS: BP 105/52; RESP 22
[2016-11-30] MEDS: ACYCLOVIR 400 MG TAB PO SCH (09:00)
[2016-11-30] MEDS: ENOXAPARIN 40 MG/0.4 ML SYG SC SCH (09:00)
[2016-11-30] MEDS: GUAIFENESIN LA 600 MG TABSR PO SCH (09:58)
[2016-11-30] MEDS: ABACAVIR/LAMIVUDINE TAB PO SCH (09:58)
[2016-11-30] MEDS: CHOLECALCIFEROL 400 UNITS TAB PO SCH (09:58)
[2016-11-30] MEDS: FAMOTIDINE 20 MG TAB PO SCH (09:58)
[2016-11-30] MEDS: FLUCONAZOLE 100 MG TAB PO SCH (09:58)
[2016-11-30] MEDS: TRIMETHOPRIM/SULFAMETHOX (DS) TAB PO SCH (09:59)
[2016-11-30] MEDS ORDERED: IPRA3AMP HHN (10:11)
[2016-11-30] MEDS ORDERED: MONT10TA24 PO (10:11)
[2016-11-30] MEDS ORDERED: LEVO500T10 PO (10:11)
[2016-11-30] MEDS ORDERED: BACTDS PO (10:11)
[2016-11-30] MEDS ORDERED: ABAC1TAB12 PO (10:11)
[2016-11-30] MEDS ORDERED: FLUC100T PO (10:11)
[2016-11-30] MEDS ORDERED: ACYC400T2 PO (10:12)
[2016-11-30] MEDS ORDERED: CHOL400T8 PO (10:12)
[2016-11-30] MEDS ORDERED: PRED10TA PO (10:12)
[2016-11-30] MEDS ORDERED: HYDR-3498 PO (10:12)
--- NOTE | 2016-11-30 10:51 | CONS ---
Date/Time of Note Date/Time of Note DATE: 11/30/16 TIME: 10:50 Assessment/Plan Assessment/Plan Chief Complaint/Hosp Course SUBJECTIVE: No acute events overnight. The patient is alert, looks comfortable. No fevers. MICROBIOLOGY: Blood culture on admission grew Leu[place]ost[place] sp. Repeat blood cultures negative. Urine culture was consistent with contaminant. Urinalysis was positive on admission. ANTIMICROBIALS: The patient is on: 1. Levaquin. 2. Rocephin 3. Bactrim DS daily 4. Diflucan 5. Acyclovir 4. LOONEY PHYSICAL EXAMINATION: GENERAL: This is a well-developed woman who is in no distress. HEENT: Head atraumatic, normocephalic. Sclerae anicteric. Buccal mucosa dry. NECK: Supple, trachea midline. CHEST: Rise symmetrical. Breath sounds diminished. HEART: S1, S2. ABDOMEN: Soft, bowel tones present. EXTREMITIES: No cyanosis. ASSESSMENT: 1. Acute asthma exacerbation and acute bronchitis==> improving. 2. AIDS with a recent CD4 count on this admission of 153. 3. Bacteremia, possibly secondary to urinary tract infection versus secondary to pulmonary source. 4. History of herpes simplex virus and HPV. 5. Noncompliance with HIV meds. PLAN: Clinically stable, continue abx, LOONEY and prophylactic meds, encourage compliance, f/u with HIV clinic OP for management, cleared for dc patient Problems: Consultation Date/Type/Reason Admit Date/Time Nov 24, 2016 at 13:15 Hx of Present Illness SUBJECTIVE: No acute events overnight. The patient is alert, eating, looks comfortable. No fevers. MICROBIOLOGY: Blood culture on admission grew [place]ost[place] sp. Repeat blood cultures negative. Urine culture was consistent with contaminant. Urinalysis was positive on admission. ANTIMICROBIALS: The patient is on: 1. Levaquin. 2. Rocephin 3. Bactrim DS daily 4. Diflucan 5. Acyclovir 4. LOONEY PHYSICAL EXAMINATION: GENERAL: This is a well-developed woman who is in no distress. HEENT: Head atraumatic, normocephalic. Sclerae anicteric. Buccal mucosa dry. NECK: Supple, trachea midline. CHEST: Rise symmetrical. Breath sounds diminished. HEART: S1, S2. ABDOMEN: Soft, bowel tones present. EXTREMITIES: No cyanosis. ASSESSMENT: 1. Acute asthma exacerbation and acute bronchitis==> improving. 2. AIDS with a recent CD4 count on this admission of 153. 3. Bacteremia, possibly secondary to urinary tract infection versus secondary to pulmonary source. 4. History of herpes simplex virus and HPV. 5. Noncompliance with HIV meds. PLAN: Clinically stable, continue abx, steroids/BD's and prophylactic meds, encourage compliance, and f/u with HIV clinic OP for management DW patient Past Surgical History Past Surgical Hx: no surgical history Social History Smoking Status: Current every day smoker Exam/Review of Systems Vital Signs Vitals Vital Signs Date Time Temp Pulse Resp B/P Pulse Ox O2 Delivery O2 Flow Rate FiO2 11/30/16 10:10 103 18 96 Nasal Cannula 2.0 11/30/16 07:23 97.8 105/52 11/29/16 08:28 21 Intake and Output 11/29/16 11/29/16 11/30/16 15:00 23:00 07:00 Intake Total 100 ml 1970 ml 960 ml Output Total 800 ml Balance 100 ml 1970 ml 160 ml Results Result Diagram: 11/30/16 0515 11/30/16 0515 Results 24 hrs Laboratory Tests Test 11/30/16 05:15 Anion Gap 18 H Basophils # 0.0 Basophils % 0.1 Blood Urea Nitrogen 16 Calcium Level 9.6 Carbon Dioxide Level 22 Chloride Level 102 Creatinine 0.78 Eosinophils # 0.0 Eosinophils % 0.0 Glucose Level 136 Hematocrit 43.9 Hemoglobin 14.4 Lymphocytes # 0.5 L Lymphocytes % 5.3 L Mean Corpuscular Hemoglobin 28.1 L Mean Corpuscular Hemoglobin Concent 32.8 Mean Corpuscular Volume 85.6 Mean Platelet Volume 8.9 Monocytes # 0.3 Monocytes % 3.3 Neutrophils # 9.0 H Neutrophils % 90.5 H Nucleated Red Blood Cells # 0.0 Nucleated Red Blood Cells % 0.0 Platelet Count 382 Potassium Level 4.3 Red Blood Count 5.13 Red Cell Distribution Width 11.8 Sodium Level 138 White Blood Count 10.0 Medications Medications Current Medications Ondansetron HCl (Zofran Inj) 4 mg Q6H PRN IV NAUSEA AND/OR VOMITING Last administered on 11/30/16 05:42; Admin Dose 4 MG; Start 11/24/16 at 14:00 Acetaminophen (Tylenol Tab) 650 mg Q6H PRN PO PAIN LEVEL 1-3 OR FEVER Last administered on 11/26/16 20:17; Admin Dose 650 MG; Start 11/24/16 at 14:00 Acetaminophen/ Hydrocodone Bitart (Bivins (5/325)) 1 tab Q6H PRN PO MODERATE PAIN LEVEL 4-6; Start 11/24/16 at 14:00 Magnesium Hydroxide (Milk Of Mag) 30 ml DAILY PRN PO CONSTIPATION; Start at 14:00 Bisacodyl (Dulcolax) 5 mg DAILY PRN PO CONSTIPATION; Start 11/24/16 at 14:00 Zolpidem Tartrate (Ambien) 5 mg QHS PRN PO SLEEP; Start 11/24/16 at 14:00 Famotidine (Pepcid) 20 mg Q12 PO Last administered on 11/30/16 09:58; Admin Dose 20 MG; Start 11/24/16 at 21:00 Enoxaparin Sodium (Lovenox) 40 mg DAILY SC ; Start 11/25/16 at 09:00 Montelukast Sodium (Singulair) 10 mg HS PO Last administered on 11/29/16 20:44 ; Admin Dose 10 MG; Start 11/24/16 at 21:00 Abacavir/ Lamivudine (Epzicom) 1 tab DAILY PO Last administered on 11/30/16 09: 58; Admin Dose 1 TAB; Start 11/25/16 at 09:00 Dolutegravir Sodium (Tivicay) 50 mg DAILY PO Last administered on 11/29/16 09: 48; Admin Dose 50 MG; Start 11/25/16 at 09:00 Lorazepam (Ativan) 1 mg Q6H PRN IV Anxiety Last administered on 11/29/16 18:54 ; Admin Dose 1 MG; Start 11/24/16 at 17:00 Methylprednisolone Sodium Succinate (Solu-Medrol) 40 mg Q6 IV Last administered on 11/30/16 05:42; Admin Dose 40 MG; Start 11/25/16 at 18:00 Cholecalciferol (Vitamin D) 800 units DAILY PO Last administered on 11/30/16 09 :58; Admin Dose 800 UNITS; Start 11/26/16 at 09:00 Diphenhydramine HCl 25 mg 25 mg Q6H PRN PO ITCHING Last administered on 22:23; Admin Dose 25 MG; Start 11/25/16 at 21:30 Levofloxacin/ Dextrose 100 ml @ 100 mls/hr Q24H IVPB Last administered on 13:39; Admin Dose 100 MLS/HR; Start 11/27/16 at 12:00 Ceftriaxone Sodium (Rocephin) 50 ml @ 100 mls/hr Q24H IVPB Last administered on 11/29/16 14:56; Admin Dose 100 MLS/HR; Start 11/27/16 at 12:30 Fluconazole (Diflucan) 100 mg DAILY PO Last administered on 11/30/16 09:58; Admin Dose 100 MG; Start 11/27/16 at 12:30 Trimethoprim/ Sulfamethoxazole (Bactrim (Ds)) 1 tab DAILY PO Last administered on 11/30/16 09:59; Admin Dose 1 TAB; Start 11/27/16 at 12:30 Acyclovir (Zovirax) 400 mg BID PO Last administered on 11/27/16 21:09; Admin Dose 400 MG; Start 11/27/16 at 21:00 Morphine Sulfate (morphine) 1 mg Q4H PRN IV SEVERE PAIN LEVEL 7-10 Last administered on 11/30/16 05:43; Admin Dose 1 MG; Start 11/27/16 at 18:00 Guaifenesin (Mucinex) 600 mg BID PO Last administered on 11/30/16 09:58; Admin Dose 600 MG; Start 11/27/16 at 21:00 JHONATAN BRIGHT NP Nov 30, 2016 10:51
[2016-11-30] MEDS: DOLUTEGRAVIR SODIUM 50 MG TABLET PO SCH (11:26)
[2016-11-30] MEDS: LEVOFLOXACIN 500MG/D5W (PMX) 100 ML IVPB SCH (11:27)
--- NOTE | 2016-11-30 12:01 | PN ---
DATE: 11/30/2016 SUBJECTIVE: Patient Neil has remained relatively stable, breathing is better today compared to y . PHYSICAL EXAMINATION: VITAL SIGNS: Temperature 98, pulse is 100, blood pressure 104/52, O2 saturation 96% on 2 L nasal ca nnula. NECK: Supple. No JVD or lymphadenopathy. CARDIAC: S1, S2, no added sounds or murmurs. CHEST: Diminished air entry bilaterally. ABDOMEN: Soft, nontender. No guarding or rebound. EXTREMITIES: No cyanosis, clubbing, 1+ edema. NEUROLOGIC: Grossly intact. No focal deficits. LABORATORY DATA: White count 10.0, hemoglobin 14.4. Chemistry within normal limits. CD4 count was 153. IMPRESSION AND PLAN: 1. Chronic obstructive pulmonary disease with acute exacerbation. 2. Asthma with acute exacerbation. 3. History of polysubstance abuse. 4. Human immunodeficiency virus with noncompliance. 5. Acquired immune deficiency syndrome by CD4 count. 6. DVT and GI prophylaxis. PLAN: 1. Continue steroid taper. 2. Bronchodilators. 3. Anticipate discharge in the next 24 to 48 hours. 4. Deep venous thrombosis. 5. Will need vp digital marketing social media and crm input to provide additional services to prevent recurrent admissions. Dictated By: NATAILIA PEREZ/HI Conf#: [id number] DID#: [id number]
[2016-11-30] MEDS: LORAZEPAM 2 MG INJ IV PRN (12:13)
[2016-11-30] MEDS: CEFTRIAXONE 1 GM/50 ML (PMX) 50 ML IVPB SCH (13:46)
--- NOTE | 2016-11-30 15:27 | PDOCDIS ---
Discharge Instructions DIAGNOSIS Discharge Diagnosis: 1. AIDS 2. Dyspnea secondary to asthma exacerbation 3. Medical noncomplianc CONDITION Patient Condition: Stable HOME CARE INSTRUCTIONS: Special Diet: regular FOLLOW UP/APPOINTMENTS Appointments 1. Follow-up with her primary care provider within a week OTHER ORDERS: Other Orders: 1. Take your medications as prescribed YAMEL MEREDITH Nov 30, 2016 15:27
[2016-11-30] MEDS ORDERED: METHYLPREDNISOLONE 40 MG INJ IV SCH (21:00)
--- NOTE | 2016-12-04 23:28 | DS ---
DATE OF ADMISSION: 11/24/2016 DATE OF DISCHARGE: 11/30/2016 CONSULTANTS: 1. Dr. Leobardo Nieto. 2. Dr. Richmond Best. 3. Nurse practitioner, Susy Mark 4. Dr. Joe Coates [facility] COURSE: This is a 26-year-old female with history of asthma, HIV, and herpes simplex virus as well as medical compliance who came to [facility] due to reports of shortness of breath as well as wheezing that had been going on for 2 days prior to admission. The patient als o had some nonproductive cough, but she denied any chest pain as well. She did have a chest x-ray t hat was negative for any acute cardiopulmonary disease. She was noted to be hypoxic, likely seconda ry to asthma exacerbation, and as such she was seen by accounts payable clerk and placed on steroid medicatio n as well as antibiotic and bronchodilators. The patient was seen by infectious disease physician f or further management of her HIV. We did do CD4 count, which was noted to be less than 200. The pa alysa was told that she did have AIDS. The patient did report that she had not been taking her medi cations at home because she ran out and she did not follow up with a clinic or with a primary care dante martinez for further medication refill. She was educated and stressed the importance of medical comp liance for management of her HIV/AIDS and she was informed about consequences of medical compliance. During her course of her stay, she did improve, albeit slowly. She did have a good response to br onchodilators and we were able to titrate her off of oxygen. She did tolerate steroid medication as well. She was placed on antiretrovirals as well as antibiotics per ID recommendations. She was al so provided prophylaxis medications for pneumonia, considering her AIDS status. She was also put on antiretrovirals for her history of herpes simplex. The patient also did have positive testing for cannabinoids, amphetamines as well and she was advised about cessation for these drugs. During her course of stay, she did improve. The plan of care was discussed with the patient and patient did ve rbalize her understanding. On the day of discharge, the patient was in stable condition. Discharge physical exam and vital signs are stable. DISCHARGE CONDITION: Stable. DISCHARGE PLAN: 1. Diet regular. 2. The patient to follow up with her primary care provider within a week. 3. The patient educated to take her medications as prescribed. DISCHARGE MEDICATIONS: 1. Acyclovir 400 mg p.o. daily. 2. Vitamin D3 at 800 units p.o. daily. 3. Diflucan 100 mg p.o. daily. 4. [place] 5/325 one tab p.o. q.6 hours as needed for pain. 5. DuoNeb 3 mL HHN q.6 hours as needed for shortness of breath. 6. Levaquin 500 mg p.o. daily for 7 days. 7. Singulair 10 mg p.o. at bedtime. 8. Prednisone taper. 9. Bactrim-DS 1 tab p.o. every day. 10. Triumeq tablet 1 tab p.o. every day. DISCHARGE PROCESS TIME: 45 minutes. Discussed plan of care with Dr. Espinosa. Dictated By: YAMEL MEREDITH JOB ESTIMATOR for NEAL ESPINOSA MD RR/NTS Conf#: [id number] DID#: [id number] CC: VINAY MOORE MD;*EndCC*
== END 2016-11-30 19:55 | disposition home or self-care (01) | DRG 189 ==
LOC: E/R 10:36 → TEL 13:15 → MS2 11-25 17:34
PROVIDERS: ADMIT Family Medicine; ATTEND Family Medicine
DX: J96.01 Acute respiratory failure with hypoxia (principal); J44.1 Chronic obstructive pulmonary disease with (acute) exacerbation; J45.901 Unspecified asthma with (acute) exacerbation; B00.9 Herpesviral infection, unspecified; J20.9 Acute bronchitis, unspecified; E87.6 Hypokalemia; F12.10 Cannabis abuse, uncomplicated; F15.10 Other stimulant abuse, uncomplicated; Z21 Asymptomatic human immunodeficiency virus [HIV] infection status; Z91.14 Patient's other noncompliance with medication regimen; Z87.891 Personal history of nicotine dependence
CPT/HCPCS: 36415; 71010; 80048; 80053; 80061; 80307; 81001; 81003; 82652; 83036; 83735; 84100; 84439; 84443; 84703; 85025; 85610; 85730; 86360; 87040; 87086; 93306; 94640; 94644; 94645; 94660; 94664; 96374; 96375; 96376; 97162; J0696; J1650; J1956; J2060; J2270; J2405; J2543; J2920; J2930; J3370; J3475; J7050

== ENCOUNTER 2017-04-08 22:20 | Emergency (ER) | END 2017-04-09 02:00 | disposition home or self-care (01) | DX: R06.02 Shortness of breath (principal); J45.51 Severe persistent asthma with (acute) exacerbation; J20.9 Acute bronchitis, unspecified; R40.2142 Coma scale, eyes open, spontaneous, at arrival to emergency department; R40.2252 Coma scale, best verbal response, oriented, at arrival to emergency department; R40.2362 Coma scale, best motor response, obeys commands, at arrival to emergency department | CPT/HCPCS: 36600; 71010; 80048; 82803; 85025; 87040; 94644; 96374; 99285; J1100; Z7610 ==

== ENCOUNTER 2017-06-13 16:11 | Emergency (ER) | payer BC ==
[~2017-06-13] VITALS: Ht 160 cm; Wt 65.0 kg
[~2017-06-13 16:11] MED LIST changes: +ACYC400T2 PO; -ACYC800T PO; -ADV50050 INH; -ALBU18HF INHALATION; -ALBU8.5H3 INH; -ALPR0.5T PO; -AZIT250T6 PO; +AZIT250T94 PO; +BACTDS PO; +CHOL400T8 PO; +FLUC100T PO; -GUAI600T14 PO; -IBUP400T22 PO; +IPRA3AMP HHN; -IPRA3AMP INHALATION; -MONT10TA24 PO; -PRED10TA PO; +PRED20TA PO
[2017-06-13] MEDS ORDERED: ALBUTEROL 0.5% (NEB) 2.5 MG/0.5 ML AMP INH STA ×2 (16:31→19:32)
[2017-06-13] MEDS ORDERED: IPRATROPIUM (NEB) 0.5 MG/2.5 ML AMP NEB STA (16:31)
--- NOTE | 2017-06-13 16:31 | ERD ---
ER Documentation Chief Complaint Date/Time DATE: 06/13/17 TIME: 16:19 Chief Complaint HPI 26-year-old female, , last menstrual period 05/04/2017, history of HIV on HAART, most recent CD4 count 325 with an undetectable viral load, PTSD, bipolar disease, asthma with almost monthly exacerbations requiring ED visits, most recent admission was October 2016 requiring BiPAP but never been intubated now presents to the ED via rescue ambulance complaining of 1 day history of increasing nonproductive cough, shortness of breath and wheezing. She ran out of her inhaler yesterday. No URI symptoms, rhinorrhea or sore throat. Denies abdominal pain, nausea, vomiting, diarrhea or constipation. No dysuria, polyuria, hematuria or flank pain. No vaginal bleeding or discharge. She found that she was several days ago. No fevers or chills. Improved with nebulized albuterol in route but still complaining of shortness of breath and chest tightness. ROS All systems reviewed and are negative except as per history of present illness. Medications Home Meds Active Scripts Albuterol Sulfate* (Proair HFA*) 8.5 Gm Hfa.aer.ad, 2 PUFF INH Q4H Y for WHEEZING AND SOB, #1 INHALER 2 Refills Prov:ISA COFFEY MD 06/13/17 Ipratropium-Albuterol (Ipratropium-Albuterol) 0.5-3 Mg/3 Ml Ampul.neb, 3 ML HHN Q6 Y for dyspnea, #120 Prov:PAUL TOURE 04/09/17 Prednisone* (Prednisone*) 20 Mg Tab, 40 MG PO DAILY for 4 Days, TAB Prov:PAUL TOURE 04/09/17 Azithromycin* (Zithromax*) 250 Mg Tablet, 250 MG PO .ZPACK DIRECTED, #6 TAB TAKE 500 MG (2 TABS) THE FIRST DAY THEN 250 MG (1 TAB) DAYS 2-5 Prov:PAUL TOURE 04/09/17 Albuterol Sulfate* (Albuterol Sulfate* Neb) 0.083%-3 Ml Neb, 2.5 MG NEB Q4 Y for SHORTNESS OF BREATH, #30 EA Prov:PAUL TOURE 04/09/17 Cholecalciferol (Vitamin D3) 400 Unit Tablet, 800 UNITS PO DAILY for 90 Days, TAB Prov:REGIDORYAMEL 11/30/16 Acyclovir* (Acyclovir*) 400 Mg Tablet, 400 MG PO DAILY for 90 Days, TAB Prov:REGIDOR,YAMEL 11/30/16 Sulfamethoxazole-Trimethoprim* (Bactrim* DS) 800-160 Mg Tab, 1 TAB PO DAILY for 90 Days, TAB Prov:REGIDORYAMEL 11/30/16 Fluconazole* (Diflucan*) 100 Mg Tablet, 100 MG PO DAILY for 90 Days, TAB Prov:REGIDOR,YAMEL 11/30/16 Abacavir/Dolutegravir/Lamivudi (Triumeq Tablet) 1 Each Tablet, 1 EACH PO DAILY for 90 Days, TAB Prov:REGIDORYAMEL 11/30/16 Allergies Allergies: Coded Allergies: vancomycin (Unverified Adverse Reaction, Mild, ITCHING, 04/09/17) Patient started to have sign of itchness and rashes Uncoded Allergies: FISH (Allergy, Severe, ANAPHYLAXIS, 10/31/12) PMhx/Soc Reviewed in chart. As per HPI. History of Surgery: No Anesthesia Reaction: No Hx Neurological Disorder: No Hx Respiratory Disorders: Yes (asthma, bronchitis) Hx Cardiac Disorders: No Hx Psychiatric Problems: Yes (depression, anxiety, ptsd, bipolar) Hx Miscellaneous Medical Probl: Yes (hiv) Hx Alcohol Use: No Hx Substance Use: No Hx Tobacco Use: No FmHx Not relevant to presenting complaint Physical Exam Vitals Vital Signs Date Time Temp Pulse Resp B/P Pulse Ox O2 Delivery O2 Flow Rate FiO2 06/13/17 21:49 94 20 141/79 96 Room Air 06/13/17 21:04 121 16 146/64 97 Room Air 06/13/17 19:52 106 16 95/69 97 Room Air 06/13/17 19:50 98 20 97 21 06/13/17 17:08 103 20 98 21 06/13/17 16:33 99.0 120 16 95/58 97 Physical Exam Const: Alert, mod respiratory distress. Head: Atraumatic Eyes: Normal Conjunctiva ENT: Normal External Ears, Nose and Mouth. Neck: Full range of motion.No stridor. Resp: Decreased breath sounds bilaterally with expiratory wheezing and prolonged expiratory phase. No rales or rhonchi. Cardio: Regular rate and rhythm, no murmurs Abd: Soft, non tender, non distended. Normal bowel sounds Skin: No petechiae or rashes Back: No midline or flank tenderness Ext: No cyanosis, or edema Neur: Awake and alert Psych: Normal Mood and Affect Results 24 hrs Laboratory Tests Test 06/13/17 17:10 Beta HCG, Quantitative 40268.0mIU/ml Current Medications Medications (Trade) Dose Ordered Sig/Lyubov Route PRN Reason Start Time Stop Time Status Last Admin Dose Admin Ipratropium Avery (Atrovent 0.02% (Neb)) 0.5 mg ONCE STAT NEB 06/13/17 16:31 06/13/17 16:33 DC 06/13/17 17:02 Albuterol (Proventil 0.5% (Neb)) 15 mg ONCE STAT INH 06/13/17 16:31 06/13/17 16:33 DC 06/13/17 17:03 Albuterol (Proventil 0.5% (Neb)) 15 mg ONCE STAT INH 06/13/17 19:32 06/13/17 19:34 DC PROCEDURE: FIRST TRIMESTER OBSTETRICAL ULTRASOUND: CLINICAL INDICATION: 26 years of age, female. Pain . COMPARISON: None available. TECHNIQUE: Real-time sonographic images of the pelvis were obtained transabdominally and transvaginally utilizing wood scale, color, and Doppler imaging. FINDINGS: LMP May 04, 2017 EGA by dates: 5 weeks 5 days SAPNA by dates: February 08, 2018 Uterus: Retroflexed . Gestational sac: There is an intrauterine gestational sac with yolk sac. An embryo is not identified. Mean sac diameter measures 1.2 cm, compatible with an average ultrasound age of 5 weeks 6 days. Yolk sac: Present. Embryo: Not visualized. Cervix: Closed. Right ovary: Size: 2.5 x 1.8 x 1.4 cm. (Vol 3.5 mL) Appearance: Normal morphology. No masses. Arterial flow is identified. Left ovary: Size: 4.1 x 2.6 x 3.2 cm. (Vol 18 mL) Appearance: Normal morphology. No masses. Dominant follicles measure up to 2.6 cm. Arterial and venous flow is identified Bladder: Visualized bladder is normal. Other: Trace free pelvic fluid. IMPRESSION: Intrauterine of unknown viability. There is an intrauterine gestational sac with a yolk sac. Estimated gestational age by mean sac diameter is 5 weeks 6 days that is concordant with the expected gestational age by dates within 1 day. At this early gestational age, an embryo is not yet identified and viability cannot be established. Recommend correlation with serial beta HCG and follow-up ultrasound in 10-14 days or earlier if clinically indicated. RPTAT: HCTS Physician Chanelle Date Time Electronically viewed and signed by Aubrey Mcduffie Physician on 06/13/2017 23: 37 CS/ Procedures/MDM DOCUMENTS REVIEWED: ED nurse, prior ED, prior records ED COURSE: Nebulized albuterol 15 mg/Atrovent 0.5 mg REEXAMINATION/REEVALUATION: Time:19:30. Improved with mild residual expiratory wheezing and repeat nebulized albuterol 15 mg given. Time:21:30. Doing well. Lungs clear. No shortness of breath. Time:22:00. Demanding pelvic ultrasound prior to discharge MEDICAL DECISION MAKIN-year-old female, , last menstrual period 2016, history of HIV on HAART, most recent CD4 count 325 with an undetectable viral load, PTSD, bipolar disease, asthma with almost monthly exacerbations requiring ED visits, most recent admission was October 2016 requiring BiPAP but never been intubated now presents to the ED via rescue ambulance complaining of 1 day history of increasing nonproductive cough, shortness of breath and wheezing. Asthma exacerbation resolved with nebulized beta agonists. Steroids deferred due to . No fever, sputum production or indications for chest x-ray. Ultrasound reveals an early IUP. No vaginal bleeding or symptoms of threatened AB. Stable bipolar disease. No SI/HI. Stable for discharge with precautionary instructions and outpatient followup as counseled. Counseled patient regarding diagnostic workup, diagnosis and need for followup. Understands to return to ED if symptoms recur, worsen or any other concerns. CRITICAL CARE TIME: Due to the high probability of sudden clinically significant respiratory deterioration, this patient with respiratory distress due to an acute asthma exacerbation required multiple, frequent reevaluations of vital signs and response to therapy. TOTAL CRITICAL CARE TIME: 35 minutes not including other separately reportable procedures. Departure Diagnosis: Primary Impression: Shortness of breath Additional Impressions: Acute asthma exacerbation Asthma severity: unspecified severity Qualified Code: J45.901 - Asthma with acute exacerbation, unspecified asthma severity HIV disease Weeks of gestation: less than 8 weeks Qualified Code: Z3A.01 - Less than 8 weeks gestation of Condition: Stable (Improved) ISA COFFEY MD Jun 13, 2017 16:29
[2017-06-13 16:33] VITALS: Ht 160 cm; Wt 65.0 kg
[2017-06-13] MEDS ORDERED: ALBU8.5H3 INH (21:43)
[2017-06-13 21:49] VITALS: BP 141/79; PULSE 94; RESP 20
--- NOTE | 2017-06-13 23:38 | RADRPT ---
PROCEDURE: FIRST TRIMESTER OBSTETRICAL ULTRASOUND: CLINICAL INDICATION: 26 years of age, female. Pain . COMPARISON: None available. TECHNIQUE: Real-time sonographic images of the pelvis were obtained transabdominally and transvagina lly utilizing wood scale, color, and Doppler imaging. FINDINGS: LMP May 04, 2017 EGA by dates: 5 weeks 5 days SAPNA by dates: February 08, 2018 Uterus: Retroflexed . Gestational sac: There is an intrauterine gestational sac with yolk sac. An embryo is not identified . Mean sac diameter measures 1.2 cm, compatible with an average ultrasound age of 5 weeks 6 days. Yolk sac: Present. Embryo: Not visualized. Cervix: Closed. Right ovary: Size: 2.5 x 1.8 x 1.4 cm. (Vol 3.5 mL) Appearance: Normal morphology. No masses. Arterial flow is identified. Left ovary: Size: 4.1 x 2.6 x 3.2 cm. (Vol 18 mL) Appearance: Normal morphology. No masses. Dominant follicles measure up to 2.6 cm. Arterial and thomas ous flow is identified Bladder: Visualized bladder is normal. Other: Trace free pelvic fluid. IMPRESSION: Intrauterine of unknown viability. There is an intrauterine gestational sac with a yolk sa c. Estimated gestational age by mean sac diameter is 5 weeks 6 days that is concordant with the expe cted gestational age by dates within 1 day. At this early gestational age, an embryo is not yet iden tified and viability cannot be established. Recommend correlation with serial beta HCG and follow-up ultrasound in 10-14 days or earlier if clinically indicated. RPTAT: HCTS Physician Chanelle Date Time Electronically viewed and signed by Physician Chanelle on 06/13/2017 23:37 CS/
== END 2017-06-13 21:50 | disposition home or self-care (01) ==
LOC: E/R 16:11
DX: O99.511 Diseases of the respiratory system complicating pregnancy, first trimester (principal); R40.2252 Coma scale, best verbal response, oriented, at arrival to emergency department; J45.901 Unspecified asthma with (acute) exacerbation; B20 Human immunodeficiency virus [HIV] disease; R40.2142 Coma scale, eyes open, spontaneous, at arrival to emergency department; R40.2362 Coma scale, best motor response, obeys commands, at arrival to emergency department; O98.711 Human immunodeficiency virus [HIV] disease complicating pregnancy, first trimester; Z3A.01 Less than 8 weeks gestation of pregnancy
CPT/HCPCS: 76801; 76817; 84702; 94644; 94645; 99291; Z7610

== ENCOUNTER 2017-06-14 00:54 | Emergency (ER) | payer SELFPAY ==
[~2017-06-14] VITALS: Ht 160 cm; Wt 63.5 kg
[~2017-06-14 00:54] MED LIST changes: +ALBU8.5H3 INH
[2017-06-14 00:58] VITALS: Ht 160 cm; Wt 63.5 kg
== END 2017-06-14 01:30 | disposition left against medical advice (07) ==
LOC: E/R 00:54
DX: Z53.21 Procedure and treatment not carried out due to patient leaving prior to being seen by health care provider (principal)

== ENCOUNTER 2017-06-23 04:17 | Emergency (ER) | payer BC ==
[~2017-06-23] VITALS: Ht 160 cm; Wt 61.5 kg
[2017-06-23 04:25] VITALS: Ht 160 cm; Wt 61.5 kg
[2017-06-23] MEDS ORDERED: ALBUTEROL 0.083% (NEB) 2.5 MG/3 ML AMP NEB STA (05:24)
[2017-06-23] MEDS ORDERED: IPRATROPIUM (NEB) 0.5 MG/2.5 ML AMP NEB STA (05:24)
[2017-06-23] MEDS ORDERED: ONDANSETRON (ODT) 4 MG TAB ODT STA (05:52)
--- NOTE | 2017-06-23 05:52 | ERD ---
ER Documentation Chief Complaint Date/Time DATE: 06/23/17 TIME: 05:41 Chief Complaint BIBA x SOB, ran out of her inhaler: she's 7 weeks preg as per pt HPI 26-year-old female brought in by ambulance for exacerbation of asthma, patient reports this is her third trip to the emergency department related to asthma symptoms, she has Dulera at home reports taking it as prescribed, reports using albuterol and Atrovent hand-held nebulized treatment in that nothing is improving her symptoms. Patient states that she needs steroids but providers have been unwilling to prescribe medication for her. Patient denies smoking, reports HIV positive. Patient is a half weeks without complaints of abdominal pain, cramping, or discharge. Reports symptoms have been worse since she became . Denies smoking. ROS All systems reviewed and are negative except as per history of present illness. Medications Home Meds Active Scripts Albuterol Sulfate* (Proair HFA*) 8.5 Gm Hfa.aer.ad, 2 PUFF INH Q4H Y for WHEEZING AND SOB, #1 INHALER 2 Refills Prov:ISA COFFEY MD 06/13/17 Ipratropium-Albuterol (Ipratropium-Albuterol) 0.5-3 Mg/3 Ml Ampul.neb, 3 ML HHN Q6 Y for dyspnea, #120 Prov:PAUL TOURE 04/09/17 Prednisone* (Prednisone*) 20 Mg Tab, 40 MG PO DAILY for 4 Days, TAB Prov:PAUL TOURE 04/09/17 Azithromycin* (Zithromax*) 250 Mg Tablet, 250 MG PO .MOJGANCK DIRECTED, #6 TAB TAKE 500 MG (2 TABS) THE FIRST DAY THEN 250 MG (1 TAB) DAYS 2-5 Prov:PAUL TOURE 04/09/17 Albuterol Sulfate* (Albuterol Sulfate* Neb) 0.083%-3 Ml Neb, 2.5 MG NEB Q4 Y for SHORTNESS OF BREATH, #30 EA Prov:PAUL TOURE 04/09/17 Cholecalciferol (Vitamin D3) 400 Unit Tablet, 800 UNITS PO DAILY for 90 Days, TAB Prov:YAMEL MEREDITH 11/30/16 Acyclovir* (Acyclovir*) 400 Mg Tablet, 400 MG PO DAILY for 90 Days, TAB Prov:REGIDORYAMEL 11/30/16 Sulfamethoxazole-Trimethoprim* (Bactrim* DS) 800-160 Mg Tab, 1 TAB PO DAILY for 90 Days, TAB Prov:REGIDORYAMEL 11/30/16 Fluconazole* (Diflucan*) 100 Mg Tablet, 100 MG PO DAILY for 90 Days, TAB Prov:REGIDORYAMEL 11/30/16 Abacavir/Dolutegravir/Lamivudi (Triumeq Tablet) 1 Each Tablet, 1 EACH PO DAILY for 90 Days, TAB Prov:REGIDORYAMEL 11/30/16 Allergies Allergies: Coded Allergies: vancomycin (Unverified Adverse Reaction, Mild, ITCHING, 04/09/17) Patient started to have sign of itchness and rashes Uncoded Allergies: FISH (Allergy, Severe, ANAPHYLAXIS, 10/31/12) PMhx/Soc Medical and Surgical Hx: pt denies Surgical Hx History of Surgery: No Anesthesia Reaction: No Hx Neurological Disorder: No Hx Respiratory Disorders: Yes (asthma, bronchitis) Hx Cardiac Disorders: No Hx Psychiatric Problems: Yes (depression, anxiety, ptsd, bipolar) Hx Miscellaneous Medical Probl: Yes (HIV, HSV2) Hx Alcohol Use: Yes (occas) Hx Substance Use: No Hx Tobacco Use: No Smoking Status: Never smoker Physical Exam Vitals Vital Signs Date Time Temp Pulse Resp B/P Pulse Ox O2 Delivery O2 Flow Rate FiO2 06/23/17 04:25 99.4 65 22 92/63 100 Vitals stable, triage notes reviewed, oxygen saturation is 100% on room air. Physical Exam Const: Well nourished, well appearing obvious discomfort no acute distress Head: Eyes: ENT: Neck: Resp: Wheezing auscultated, diminished bases. Cardio: Regular rate and rhythm, no murmurs Abd: Soft, non tender, non distended Skin: Back: Ext: Neur: Awake and alert Psych: Normal Mood and Affect Results 24 hrs Current Medications Medications (Trade) Dose Ordered Sig/Lyubov Route PRN Reason Start Time Stop Time Status Last Admin Dose Admin Albuterol (Proventil 0.083% (Neb)) 5 mg ONCE STAT NEB 06/23/17 05:24 06/23/17 05:27 DC Ipratropium [place] (Atrovent 0.02% (Neb)) 0.5 mg ONCE STAT NEB 06/23/17 05:24 06/23/17 05:27 DC Procedures/MDM This 26-year-old HIV-positive 6 week female presents to emergency department for exacerbation of asthma symptoms. Patient is currently prescribed Dulera taking it as prescribed twice daily. Reports using hand-held nebulized albuterol and Atrovent with no improvement of symptoms. Patient reports this is her third hospital visit in the last 3 weeks has been requesting steroids states no one has been prescribing steroid secondary to . This case discussed with supervising physician Dr. Gonsales who after assessment agrees with a 4 day course of prednisone in addition to the Adderall , Atrovent, hand-held nebulized treatment here in emergency department. The risk and benefits of oral steroids during was carefully and thoroughly discussed with patient, patient understands that there is a risk to her baby when taking steroids especially during the first semester. Patient trying to find position of comfort , verbalizing understanding of risks to baby and agrees to steroid use for 4 days, patient also instructed to follow-up with primary [facility] and discuss her asthma treatment options. Reports that she does not have [facility] at this time information will be provided for her. Return to emergency department for worsening of symptoms or if symptoms fail to improve as anticipated. Patient is stable with no new complaints during ER course, clinically there is no current evidence to suggest meningitis, sepsis, acute abdomen, acute coronary syndromes, pulmonary embolism or any other emergent condition appearing to require further evaluation or hospitalization. I feel the patient is stable for discharge at this time. I have discussed results, examination findings, the treatment plan with the patient and family present prior to discharge. Indications for emergent reevaluation, side effects of medication were also discussed. All questions were answered. Patient verbalizes understanding and agrees with plan of care. Departure Diagnosis: Primary Impression: Asthma exacerbation Condition: Good Patient Instructions: Asthma and Referrals: [facility] REFERRAL LIST Additional Instructions: Thank you for for coming to [facility] for your care today. Please ask your nurse or provider if you have questions about your care today and do not leave until all your questions have been answered. Please use any medications given as directed and follow-up with your doctor (or the doctor you were referred to) in the next 2-3 days. If you do not have a primary care doctor you may follow up at the [facility] (listed below). You may also use motrin and tylenol as needed for fever and/or pain unless instructed otherwise by your provider or nurse. Indications for more urgent follow-up have been discussed, but you may return to the Emergency Department at ANY time for any worrisome or worsening symptoms. If you have abdominal pain, please know that no test or exam you received is perfect and you should follow up within 8 hours for continued pain. If you had any imaging studies today, such as an X-Ray or CT Scan, these studies will be reviewed later by a radiologist. You will be called if there are important findings that were not identified today, so make sure the contact information you provided at registration is correct. If you received any narcotic pain control medicine today, such as Vicodin, Morphine or Dilaudid, your coordination and judgment may be affected for a number of hours. Please do not drive or operate heavy machinery, and you may want someone to assist you at home. If you were given a prescription for narcotic medication, be aware that it is very addictive- use sparingly and only if necessary. MIKE MIRANDA Jun 23, 2017 05:51
[2017-06-23] MEDS ORDERED: predniSONE 20 MG TAB PO ONE (06:00)
[2017-06-23] MEDS ORDERED: PRED20TA PO (06:49)
[2017-06-23] MEDS ORDERED: ALBUTEROL 0.5% (NEB) 2.5 MG/0.5 ML AMP INH STA (07:10)
== END 2017-06-23 08:58 | disposition home or self-care (01) ==
LOC: FTE 04:17
DX: J45.901 Unspecified asthma with (acute) exacerbation (principal)
CPT/HCPCS: 94664; 99284; J7512; Z7610

== ENCOUNTER 2017-06-25 21:44 | Inpatient (IN) | payer BC ==
[~2017-06-25] VITALS: Ht 160 cm; Wt 63.0 kg
[2017-06-25] MEDS ORDERED: ALBUTEROL 0.083% (NEB) 2.5 MG/3 ML AMP HHN STA ×2 (21:53→23:15)
[2017-06-25] MEDS ORDERED: MAGNESIUM SULFATE 2 GM/50 ML 50 ML IVPB ONE (22:00)
[2017-06-25] MEDS ORDERED: IPRATROPIUM (NEB) 0.5 MG/2.5 ML AMP HHN ONE ×2 (22:00→23:30)
[2017-06-25] MEDS ORDERED: METHYLPREDNISOLONE 125 MG INJ IV ONE (22:00)
[2017-06-25 22:08] VITALS: TEMP 98.2
--- NOTE | 2017-06-25 22:16 | ERA ---
ER Documentation Chief Complaint Date/Time DATE: 06/25/17 TIME: 22:13 Chief Complaint SOB, asthma exascerbation HPI Patient is a 26-year-old female who presents with gradual onset, intermittent, moderate to severe shortness of breath with wheezing for the last week. She states that she has been in the hospital multiple times and diagnosed with asthma exacerbation. She was started on prednisone 3 days ago but has not had improvement. She was seen in an outside emergency department earlier today and had improvement after treatments, but has had recurrence of dyspnea with wheeze. She denies smoking, but states that she is exposed to secondhand smoke at home. She denies productive cough, chest pain. She reports constant suprapubic pain for the last week. She is artery been seen in the hospital for this and did not have a diagnosis. The patient is 7 weeks . She is HIV positive. ROS All systems reviewed and are negative except as per history of present illness. Medications Home Meds Active Scripts Prednisone* (Prednisone*) 20 Mg Tab, 40 MG PO DAILY for 3 Days, TAB Prov:MIKE MIRANDA 06/23/17 Albuterol Sulfate* (Proair HFA*) 8.5 Gm Hfa.aer.ad, 2 PUFF INH Q4H Y for WHEEZING AND SOB, #1 INHALER 2 Refills Prov:ISA COFFEY MD 06/13/17 Ipratropium-Albuterol (Ipratropium-Albuterol) 0.5-3 Mg/3 Ml Ampul.neb, 3 ML HHN Q6 Y for dyspnea, #120 Prov:PAUL TOURE 04/09/17 Albuterol Sulfate* (Albuterol Sulfate* Neb) 0.083%-3 Ml Neb, 2.5 MG NEB Q4 Y for SHORTNESS OF BREATH, #30 EA Prov:PAUL TOURE 04/09/17 Cholecalciferol (Vitamin D3) 400 Unit Tablet, 800 UNITS PO DAILY for 90 Days, TAB Prov:YAMEL MEREDITH 11/30/16 Acyclovir* (Acyclovir*) 400 Mg Tablet, 400 MG PO DAILY for 90 Days, TAB Prov:YAMEL MEREDITH 11/30/16 Abacavir/Dolutegravir/Lamivudi (Triumeq Tablet) 1 Each Tablet, 1 EACH PO DAILY for 90 Days, TAB Prov:YAMEL MEREDITH 11/30/16 Reported Medications Montelukast Sodium* (Montelukast Sodium*) 10 Mg Tablet, 10 MG PO QHS, #30 TAB 06/25/17 Vit-Iron Fumarate-FA ( Tablet) 1 Each Tablet, 1 TAB PO DAILY, TAB 06/25/17 Discontinued Scripts Prednisone* (Prednisone*) 20 Mg Tab, 40 MG PO DAILY for 4 Days, TAB Prov:APUL TOURE 04/09/17 Azithromycin* (Zithromax*) 250 Mg Tablet, 250 MG PO .ElainaPACK DIRECTED, #6 TAB TAKE 500 MG (2 TABS) THE FIRST DAY THEN 250 MG (1 TAB) DAYS 2-5 Prov:PAUL TOURE 04/09/17 Sulfamethoxazole-Trimethoprim* (Bactrim* DS) 800-160 Mg Tab, 1 TAB PO DAILY for 90 Days, TAB Prov:YAMEL MEREDITH 11/30/16 Fluconazole* (Diflucan*) 100 Mg Tablet, 100 MG PO DAILY for 90 Days, TAB Prov:STACYIDORYAMEL 11/30/16 Allergies Allergies: Coded Allergies: vancomycin (Unverified Adverse Reaction, Mild, ITCHING, 06/25/17) Patient started to have sign of itchness and rashes Uncoded Allergies: FISH (Allergy, Severe, ANAPHYLAXIS, 10/31/12) PMhx/Soc Past medical history: HIV, asthma Past surgical history: Denies Social history: Denies tobacco, alcohol or illicit drugs. History of Surgery: No Anesthesia Reaction: No Hx Neurological Disorder: No Hx Respiratory Disorders: Yes (asthma, bronchitis) Hx Cardiac Disorders: No Hx Psychiatric Problems: Yes (depression, anxiety, ptsd, bipolar) Hx Miscellaneous Medical Probl: Yes (HIV, HSV2) Hx Alcohol Use: Yes (occas) Hx Substance Use: No Hx Tobacco Use: No Smoking Status: Former smoker FmHx Family History: No coronary disease, No diabetes Physical Exam Vitals Vital Signs Date Time Temp Pulse Resp B/P Pulse Ox O2 Delivery O2 Flow Rate FiO2 06/26/17 00:33 116 20 95/72 97 Room Air 06/25/17 23:10 101 30 100 Aerosol Mask 06/25/17 22:08 98.2 135 35 97/63 100 Room Air 06/25/17 22:01 130 37 100 Aerosol Mask 06/25/17 21:45 98.3 128 35 97/63 100 Physical Exam Const: Alert, in mild distress Head: Atraumatic Eyes: Normal Conjunctiva, No pallor, no icterus ENT: Normal External Ears, Nose and Mouth. Mucous membrane is moist Neck: Full range of motion..~ No meningismus. Resp: Tachypnea, prolonged expirations, diffuse wheezes, no rales Cardio: Regular rate and rhythm, no murmurs Abd: Soft, non tender, non distended. No rebound or guarding Skin: No petechiae or rashes Back: No midline or flank tenderness Ext: No cyanosis, or edema Neur: Awake and alert, Cranial nerves II through XII intact bilaterally, strength and sensation full for extremity. Psych: Normal Mood and Affect Result Diagram: 06/25/17220906/25/172209 Results 24 hrs Laboratory Tests Test 06/25/17 21:55 06/25/17 22:10 Blood Gas Specimen Source Blood arterial Arterial Blood Date Drawn 06/25/2017 11:20:50 PM Arterial Blood pH (Temp corrected) 7.460 Arterial Blood pCO2 (Temp correct) 24.4mmhg Arterial Blood pO2 (Temp corrected) 198.2mmHG Arterial Blood HCO3 17.0mmol/L Arterial Blood Base Excess -5.1mmol/L Arterial Blood Oxygen Saturation 99.0mmHG Abhijit Test ACCEPTAB Arterial Blood Gas Puncture Site Right Radial Arterial Blood Carboxyhemoglobin 0.3% Arterial Blood Methemoglobin 0.3% Blood Gas A-a O2 Differential 94.9mmHg Oxyhemoglobin Percent 98.4% Total Hemoglobin 13.0g/dl Blood Gas Temperature 37.0C Blood Gas Modality MASK - SIMPLE FiO2 45.0% Blood Gas Notified Whom [facility] Blood Gas Notified Time 06/25/2017 11:29:33 PM White Blood Count 8.310^3/ul Red Blood Count 4.3810^6/ul Hemoglobin 11.9g/dl Hematocrit 36.4% Mean Corpuscular Volume 83.1fl Mean Corpuscular Hemoglobin 27.2pg Mean Corpuscular Hemoglobin Concent 32.7g/dl Red Cell Distribution Width 12.8% Platelet Count 60573^3/UL Mean Platelet Volume 9.4fl Neutrophils % 89.5% Lymphocytes % 8.8% Monocytes % 1.3% Eosinophils % 0.0% Basophils % 0.0% Nucleated Red Blood Cells % 0.0/100WBC Neutrophils # 7.410^3/ul Lymphocytes # 0.710^3/ul Monocytes # 0.110^3/ul Eosinophils # 0.010^3/ul Basophils # 0.010^3/ul Nucleated Red Blood Cells # 0.010^3/ul Sodium Level 136mmol/L Potassium Level 3.9mmol/L Chloride Level 106mmol/L Carbon Dioxide Level 19mmol/L Anion Gap 15 Blood Urea Nitrogen 9mg/dl Creatinine 0.49mg/dl Glucose Level 117mg/dl Lactic Acid Level 2.1mmol/L Calcium Level 10.2mg/dl Total Bilirubin 0.6mg/dl Direct Bilirubin 0.00mg/dl Indirect Bilirubin 0.6mg/dl Aspartate Amino Transf (AST/SGOT) 22IU/L Alanine Aminotransferase (ALT/SGPT) 23IU/L Alkaline Phosphatase 52IU/L Total Protein 7.3g/dl Albumin 4.3g/dl Globulin 3.00g/dl Albumin/Globulin Ratio 1.43 Current Medications Medications (Trade) Dose Ordered Sig/Lyubov Route PRN Reason Start Time Stop Time Status Last Admin Dose Admin Albuterol 10 mg 10 mg ONCE STAT [facility] 06/25/17 21:53 06/25/17 21:55 DC 06/25/17 22:00 Magnesium Sulfate (Magnesium Sulfate 2 Gm/50 ml) 50 ml @ 25 mls/hr ONCE ONCE IVPB 06/25/17 22:00 06/25/17 23:59 DC 06/25/17 22:19 Methylprednisolone Sodium Succinate (Solu-Medrol) 125 mg ONCE ONCE IV 06/25/17 22:00 06/25/17 22:01 DC 06/25/17 22:20 Ipratropium [place] (Atrovent 0.02% (Neb)) 0.5 mg ONCE ONCE N 06/25/17 22:00 06/25/17 22:01 DC 06/25/17 22:00 Albuterol (Proventil 0.083% (Neb)) 10 mg ONCE STAT N 06/25/17 23:15 06/25/17 23:16 DC Ipratropium [place] (Atrovent 0.02% (Neb)) 0.5 mg ONCE ONCE HHN 06/25/17 23:30 06/25/17 23:30 DC Ondansetron HCl (Zofran Inj) 4 mg ER BRIDGE PRN IV NAUSEA AND/OR VOMITING 06/26/17 00:30 06/27/17 00:29 Acetaminophen (Tylenol Tab) 650 mg ER BR[place]GE PRN PO MILD PAIN/FEVER 06/26/17 00:30 06/27/17 00:29 Procedures/MDM EKG read by me: Time 2152, rate 127 Rhythm: Sinus tachycardia [place]: Normal Intervals: Normal ST-T waves: no ischemic changes Ectopy: No Q-waves: No Impression: Sinus tachycardia. No evidence of ischemia or arrhythmia MDM: Patient is a 26-year-old female first trimester of who presents with recurrent shortness of breath and wheezing over the last week. She has had multiple ER visits. I personally saw her in the ER 3 days ago and prescribed her prednisone. She has been taking multiple nebulizer treatments and prescribed prednisone and has not had improvement. She was seen in another ER earlier today and had transient relief, but continues to have significant shortness of breath and wheezing on exam. The patient was treated with continuous albuterol 2 in the ER as well as ipratropium and IV steroids. She was given IV magnesium. On reassessment she continued to have prolonged expiration and wheezing. Blood gas showed mild respiratory alkalosis with a PCO2 of 24. Given failure of outpatient treatment and ongoing wheezing despite aggressive treatment in the ER, the patient will be admitted to monitored bed for further workup and treatment. There is no evidence of complication of . The patient had a benign abdominal exam and labs. Urinalysis and urine tox screen are pending. The patient had slightly elevated lactic acid, but has no fever or leukocytosis. Her elevated lactic acid is likely related to her asthma exacerbation and I have no concern for sepsis at this time. Case was discussed with Dr. Dia. Critical Care: Time: 35 minutes exlcuding all billable procedures. Treatments/Evaluations: Close monitoring and treatment of unstable vital signs, cardiorespiratory, and neurologic status, while maintaining tight balance of fluid, respiratory, and cardiac interventions. Departure Diagnosis: Primary Impression: Asthma with status asthmaticus Qualified Code: J45.902 - Asthma with status asthmaticus, unspecified asthma severity Additional Impression: First trimester Condition: Fair WYLER,MAR MD Jun 25, 2017 22:16
[2017-06-25 22:38] LABS: HEMATOCRIT 36.4 % (37.0-47.0); HEMOGLOBIN 11.9 g/dl (12.0-16.0); LYMPHOCYTES # 0.7 10^3/ul (0.8-2.9); LYMPHOCYTES % 8.8 % (15.0-51.0); MEAN CORPUSCULAR HEMOGLOBIN 27.2 pg (29.0-33.0); MEAN CORPUSCULAR HGB CONC 32.7 g/dl (32.0-37.0); MEAN CORPUSCULAR VOLUME 83.1 fl (82.0-101.0); MEAN PLATELET VOLUME 9.4 fl (7.4-10.4); MONOCYTE # 0.1 10^3/ul (0.3-0.9); MONOCYTES % 1.3 % (0.0-11.0); NEUTROPHIL # 7.4 10^3/ul (1.6-7.5); NEUTROPHILS % 89.5 % (39.0-77.0); PLATELET COUNT 245 10^3/UL (140-415); RED BLOOD COUNT 4.38 10^6/ul (4.20-5.40); RED CELL DISTRIBUTION WIDTH 12.8 % (11.5-14.5); WHITE BLOOD COUNT 8.3 10^3/ul (4.8-10.8)
--- NOTE | 2017-06-25 22:55 | RADRPT ---
PROCEDURE: XR Chest. CLINICAL INDICATION: Dyspnea. TECHNIQUE: Portable AP upright view of the chest was obtained. COMPARISON: 04/08/2017 FINDINGS: The cardiomediastinal silhouette is within normal limits. The lungs are clear. There is no evidenc e for pleural effusion, pneumothorax or pulmonary vascular congestion. The osseous structures are i ntact with no evidence for acute abnormality. Multiple monitoring wires overlie the chest limiting f ine evaluation. RPTAT:HJJR IMPRESSION: No evidence for acute intrathoracic pathology or interval change from 04/08/2017. Physician Dash Date Time Electronically viewed and signed by Physician Dash on 06/25/2017 22:55 JR/
[2017-06-25 23:04] LABS: ALBUMIN 4.3 g/dl (3.3-4.9); ALBUMIN/GLOBULIN RATIO 1.43; BILIRUBIN,INDIRECT 0.6 mg/dl (0-1.1); BILIRUBIN,TOTAL 0.6 mg/dl (0.2-1.3); CALCIUM 10.2 mg/dl (8.4-10.2); CREATININE 0.49 mg/dl (0.44-1.00); POTASSIUM 3.9 mmol/L (3.5-5.1); TOTAL PROTEIN 7.3 g/dl (6.1-8.1)
[2017-06-25 23:29] LABS: AADO2 Arterial 94.9 mmHg (7.0-24.0); Allen Test ACCEPTAB; Arterial Base Excess -5.1 mmol/L (-3.0-3); Arterial COHb 0.3 % (0.0-3.0); Arterial Fraction of Oxyhgb 98.4 % (93.0-99.0); Arterial MetHb 0.3 % (0.0-1.5); MODE MASK - SIMPLE
[2017-06-25] MEDS ORDERED: MONT10TA24 PO (23:44)
[2017-06-25] MEDS ORDERED: PREN1TAB17 PO (23:44)
[2017-06-26] VITALS (9 sets, daily range): BP systolic 78–134; BP diastolic 45–62; PULSE 87–115; RESP 18–20; Ht 160 cm; Wt 63.0 kg
[2017-06-26] MEDS ORDERED: ONDANSETRON 4 MG INJ IV PRN (00:30)
[2017-06-26] MEDS ORDERED: ACETAMINOPHEN 325 MG TAB PO PRN (00:30)
[2017-06-26 00:56] LABS: ADD UMIC YES; UR ASCORBIC ACID 40 mg/dL (NEGATIVE); UR BILIRUBIN (Dip) NEGATIVE (NEGATIVE); UR BLOOD (Dip) NEGATIVE (NEGATIVE); UR CLARITY SLIGHTLY CLOUDY (CLEAR); UR COLOR YELLOW (YELLOW); UR GLUCOSE (Dip) NEGATIVE (NEGATIVE); UR KETONES (Dip) 1+ mg/dL (NEGATIVE); UR LEUKOCYTE ESTERASE (Dip) 2+ Leu/ul (NEGATIVE); UR MUCUS FEW /HPF (NONE SEEN); UR NITRITE (Dip) NEGATIVE (NEGATIVE); UR RBC 2 /HPF (0-5); UR SPECIFIC GRAVITY (Dip) 1.018 (1.003-1.030); UR SQUAMOUS EPITHELIAL CELL MODERATE /HPF (FEW); UR TOTAL PROTEIN (Dip) NEGATIVE (NEGATIVE); UR UROBILINOGEN (Dip) NEGATIVE (NEGATIVE)
[2017-06-26] MEDS ORDERED: morphine 2 MG INJ IV PRN (01:30)
[2017-06-26 01:38] LABS: BARBITURATES NEGATIVE (NEGATIVE); BENZODIAZEPINES NEGATIVE (NEGATIVE); CANNABINOIDS POSITIVE (NEGATIVE); COCAINE NEGATIVE (NEGATIVE); OPIATES NEGATIVE (NEGATIVE)
[2017-06-26] MEDS: SOD CHLORIDE 0.9% 1,000 ML IV SCH ×3 (02:20→21:30)
[2017-06-26] MEDS: SALMETEROL/FLUTICASONE 250/50 INHA INH SCH ×3 (04:28→19:53)
[2017-06-26] MEDS: CEFTRIAXONE 1 GM/50 ML (PMX) 50 ML IVPB SCH (04:28)
[2017-06-26] MEDS: ALBUTEROL/IPRATROPIUM (NEB) 3 ML AMP HHN PRN ×5 (04:53→21:34)
--- NOTE | 2017-06-26 06:28 | HP ---
Date/Time of Note Date/Time of Note DATE: 06/26/17 TIME: 06:17 Assessment/Plan VTE Prophylaxis VTE Prophylaxis Intervention: SCD's Lines/Catheters IV C[facility]ter Type (from [facility]): Peripheral IV Urinary Cath still in place: No Assessment/Plan Assessment/Plan ASSESSMENT 26-year-old female who is 7 weeks , with a history of asthma, HIV, HSV here with shortness of breath and wheezing secondary to asthma exacerbation. 1. Asthma exacerbation -Supplemental oxygen, bronchodilators, inhaled and IV corticosteroids -Pulmonary consult 2. Intrauterine , 7 weeks - Obstetric ultrasound to evaluate viability -Order beta-hCG - OB consult 3. History of HIV -ID consult especially given her 4. UTI -Rocephin. -Follow-up urine culture results HPI/ROS Admit Date/Time Admit Date/Time Jun 26, 2017 at 00:13 Hx of Present Illness This is a 26-year-old female who is 7 weeks , with a history of asthma, HIV, HSV who presented to the emergency department complaining of shortness of breath and wheezing. Symptoms has been going on for weeks. Has been using her inhalers and nebulizing treatments at home with increased frequency. She said she has been to different hospitals including here in our ER 3 days ago for shortness of breath. She was started on a prednisone and she has been taking it for the past 2 days without improvement in her symptom. She said that she is compliant with her HIV medications. She had a blood test done at a clinic 2 weeks ago and is awaiting results of her CD4 counts. When she presented to the ER, she was tachycardic with a heart rate of 135. Oxygen saturation was 100% on room air. Chest x-ray is clear PMH/Family/Social Past Surgical History Past Surgical Hx: no surgical history Social History Smoking Status: Never smoker Exam/Review of Systems Vital Signs Vitals Vital Signs Date Time Temp Pulse Resp B/P Pulse Ox O2 Delivery O2 Flow Rate FiO2 06/26/17 04:54 111 22 97 21 06/26/17 04:45 98.3 103/62 06/26/17 00:33 Room Air Intake and Output 06/25/17 06/25/17 06/26/17 15:00 23:00 07:00 Intake Total 300 ml Balance 300 ml Exam Constitutional: other (No acute distress, but looks weak) Head: atraumatic, normocephalic Eyes: EOMI, PERRL Respiratory: wheezing Cardiovascular: other (Tachycardic with regular rhythm) Gastrointestinal: non-tender, soft Extremities: normal pulses Labs Result Diagram: 06/25/17220906/25/172209 Medications Medications Current Medications Prednisone 10 mg 10 mg DAILY PO ; Start 06/26/17 at 09:00 Sodium Chloride (NS) 1,000 ml @ 100 mls/hr Q10H IV Last administered on 02:20; Admin Dose 100 MLS/HR; Start 06/26/17 at 01:30; Stop 06/27/17 at 01: 30 Ondansetron HCl (Zofran Inj) 4 mg Q6H PRN IV NAUSEA AND/OR VOMITING; Start at 01:30 Acetaminophen (Tylenol Tab) 650 mg Q6H PRN PO PAIN AND OR ELEVATED TEMP; Start 06/26/17 at 01:30 Morphine Sulfate 2 mg 2 mg Q4H PRN IV PAIN LEVEL 6-10; Start 06/26/17 at 01:30 Ceftriaxone Sodium (Rocephin) 50 ml @ 100 mls/hr Q24H IVPB Last administered on 06/26/17 04:28; Admin Dose 100 MLS/HR; Start 06/26/17 at 04:00 PAUL MITCHELL MD Jun 26, 2017 06:27
[2017-06-26] MEDS: METHYLPREDNISOLONE 125 MG INJ IV SCH ×2 (06:37→09:13)
[2017-06-26 08:19] LABS: BASOPHILS % 0.1 % (0.0-2.0); HEMATOCRIT 34.1 % (37.0-47.0); HEMOGLOBIN 11.4 g/dl (12.0-16.0); LYMPHOCYTES % 8.2 % (15.0-51.0); MEAN CORPUSCULAR HGB CONC 33.4 g/dl (32.0-37.0); MEAN CORPUSCULAR VOLUME 83.8 fl (82.0-101.0); MEAN PLATELET VOLUME 9.6 fl (7.4-10.4); MONOCYTE # 0.4 10^3/ul (0.3-0.9); MONOCYTES % 3.1 % (0.0-11.0); NEUTROPHIL # 10.8 10^3/ul (1.6-7.5); NEUTROPHILS % 88.1 % (39.0-77.0); PLATELET COUNT 247 10^3/UL (140-415); RED BLOOD COUNT 4.07 10^6/ul (4.20-5.40); RED CELL DISTRIBUTION WIDTH 12.6 % (11.5-14.5); WHITE BLOOD COUNT 12.3 10^3/ul (4.8-10.8)
[2017-06-26 08:52] LABS: ALBUMIN 3.8 g/dl (3.3-4.9); ALBUMIN/GLOBULIN RATIO 1.26; BILIRUBIN,INDIRECT 0.4 mg/dl (0-1.1); BILIRUBIN,TOTAL 0.4 mg/dl (0.2-1.3); CALCIUM 9.2 mg/dl (8.4-10.2); CREATININE 0.5 mg/dl (0.44-1.00); MAGNESIUM 2.3 mg/dl (1.7-2.5); PHOSPHORUS 3.3 mg/dl (2.5-4.9); POTASSIUM 4.3 mmol/L (3.5-5.1); TOTAL PROTEIN 6.8 g/dl (6.1-8.1)
[2017-06-26] MEDS ORDERED: predniSONE 10 MG TAB PO SCH (09:00)
[2017-06-26] MEDS: CHOLECALCIFEROL 400 UNITS TAB PO SCH (10:00)
[2017-06-26] MEDS: ACYCLOVIR 400 MG TAB PO SCH (12:36)
[2017-06-26] MEDS: PRENATAL VITAMIN PO SCH (12:36)
--- NOTE | 2017-06-26 13:46 | PN ---
Date/Time of Note Date/Time of Note DATE: 06/26/17 TIME: 13:43 Assessment/Plan VTE Prophylaxis VTE Prophylaxis Intervention: SCD's Lines/Catheters [facility] Peripheral IV Urinary Cath still in place: No Assessment/Plan Assessment/Plan 26-year-old female who is 7 weeks , with a history of asthma, HIV, HSV here with shortness of breath and wheezing secondary to asthma exacerbation. 1. Asthma exacerbation, continue on nebulizer, SoluMedrol, and rocephin, O2 2. Intrauterine , 7 weeks, follow up with Obstetric ultrasound and OB consult 3. History of HIV, ID consult especially given her 4. UTI, Rocephin. Subjective 24 Hr Interval Summary Free Text/Dictation still cough with shortness of breath Exam/Review of Systems Vital Signs Vitals Vital Signs Date Time Temp Pulse Resp B/P Pulse Ox O2 Delivery O2 Flow Rate FiO2 06/26/17 12:15 115 06/26/17 11:47 98.5 19 134/60 96 06/26/17 11:42 Nasal Cannula 2.0 28 Intake and Output 06/25/17 06/25/17 06/26/17 15:00 23:00 07:00 Intake Total 300 ml Balance 300 ml Exam Constitutional: alert, oriented, well developed Head: atraumatic, normocephalic Eyes: EOMI, PERRL, nl conjunctiva, nl lids, nl sclera ENMT: mucosa pink and moist, nl external ears & nose, nl lips & teeth, nl nasal mucosa & septum Neck: non-tender, supple Respiratory: congested cough, wheezing Cardiovascular: nl pulses, regular rate and rhythm, No S3, No S4, No bruits, No diastolic murmur, No edema, No gallop, No irregular rhythm, No jugular venous distention (JVD), No murmurs/extra sounds, No other, No rub, No systolic murmur Gastrointestinal: nl liver, spleen, non-tender, soft, No ascites, No bowel sounds, No distended, No firm, No hepatomegaly, No mass , No other, No rebound or guarding, No splenomegaly, No surgical scars, No tender Musculoskeletal: nl extremities to inspection Extremities: normal pulses, No calf tenderness, No clubbing, No cyanosis, No edema, No other, No palpable cord, No pitting pedal edema, No tenderness 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, nl mental status, nl speech, nl strength Results Result Diagram: 06/26/17 0718 06/26/17 0718 Results 24 hrs Laboratory Tests Test 06/25/17 21:55 06/25/17 22:10 06/26/17 00:15 06/26/17 07:18 Blood Gas Specimen Source Blood arterial Arterial Blood Date Drawn 06/25/2017 11:20:50 PM Arterial Blood pH (Temp corrected) 7.460 H Arterial Blood pCO2 (Temp correct) 24.4 L Arterial Blood pO2 (Temp corrected) 198.2 H Arterial Blood HCO3 17.0 L Arterial Blood Base Excess -5.1 L Arterial Blood Oxygen Saturation 99.0 H Abhijit Test ACCEPTAB Arterial Blood Gas Puncture Site Right Radial Arterial Blood Carboxyhemoglobin 0.3 Arterial Blood Methemoglobin 0.3 Blood Gas A-a O2 Differential 94.9 H Oxyhemoglobin Percent 98.4 Total Hemoglobin 13.0 Blood Gas Temperature 37.0 Blood Gas Modality MASK - SIMPLE FiO2 45.0 Blood Gas Notified Whom [facility] Blood Gas Notified Time 06/25/2017 11:29:33 PM White Blood Count 8.3 12.3 #H Red Blood Count 4.38 4.07 L Hemoglobin 11.9 L 11.4 L Hematocrit 36.4 L 34.1 L Mean Corpuscular Volume 83.1 83.8 Mean Corpuscular Hemoglobin 27.2 L 28.0 L Mean Corpuscular Hemoglobin Concent 32.7 33.4 Red Cell Distribution Width 12.8 12.6 Platelet Count 245 # 247 Mean Platelet Volume 9.4 9.6 Neutrophils % 89.5 H 88.1 H Lymphocytes % 8.8 L 8.2 L Monocytes % 1.3 3.1 Eosinophils % 0.0 0.0 Basophils % 0.0 0.1 Nucleated Red Blood Cells % 0.0 0.0 Neutrophils # 7.4 10.8 H Lymphocytes # 0.7 L 1.0 Monocytes # 0.1 L 0.4 Eosinophils # 0.0 0.0 Basophils # 0.0 0.0 Nucleated Red Blood Cells # 0.0 0.0 Sodium Level 136 136 Potassium Level 3.9 4.3 Chloride Level 106 109 Carbon Dioxide Level 19 L 21 Anion Gap 15 10 # Blood Urea Nitrogen 9 8 Creatinine 0.49 0.50 Glucose Level 117 111 Lactic Acid Level 2.1 H Calcium Level 10.2 9.2 Total Bilirubin 0.6 0.4 Direct Bilirubin 0.00 0.00 Indirect Bilirubin 0.6 0.4 Aspartate Amino Transf (AST/SGOT) 22 18 Alanine Aminotransferase (ALT/SGPT) 23 25 Alkaline Phosphatase 52 51 Total Protein 7.3 6.8 Albumin 4.3 3.8 Globulin 3.00 3.00 Albumin/Globulin Ratio 1.43 1.26 Urine Color YELLOW Urine Clarity SLIGHTLY CLOUDY A Urine pH 7.0 Urine Specific [place] 1.018 Urine Ketones 1+ H Urine Nitrite NEGATIVE Urine Bilirubin NEGATIVE Urine Urobilinogen NEGATIVE Urine Leukocyte Esterase 2+ H Urine Microscopic RBC 2 Urine Microscopic WBC 13 H Urine Squamous Epithelial Cells MODERATE Urine Mucus FEW A Urine Hemoglobin NEGATIVE Urine Glucose NEGATIVE Urine Total Protein NEGATIVE Urine Opiates Screen NEGATIVE Urine Barbiturates NEGATIVE Urine Amphetamines Screen NEGATIVE Urine Benzodiazepines Screen NEGATIVE Urine Cocaine Screen NEGATIVE Urine Cannabinoids POSITIVE Phosphorus Level 3.3 Magnesium Level 2.3 Beta HCG, Quantitative 930998.0 Medications Medications Current Medications Sodium Chloride (NS) 1,000 ml @ 100 mls/hr Q10H IV Last administered on 02:20; Admin Dose 100 MLS/HR; Start 06/26/17 at 01:30; Stop 06/27/17 at 01: 30 Ondansetron HCl (Zofran Inj) 4 mg Q6H PRN IV NAUSEA AND/OR VOMITING; Start at 01:30 Acetaminophen (Tylenol Tab) 650 mg Q6H PRN PO PAIN AND OR ELEVATED TEMP; Start 06/26/17 at 01:30 Morphine Sulfate 2 mg 2 mg Q4H PRN IV PAIN LEVEL 6-10; Start 06/26/17 at 01:30 Ceftriaxone Sodium (Rocephin) 50 ml @ 100 mls/hr Q24H IVPB Last administered on 06/26/17 04:28; Admin Dose 100 MLS/HR; Start 06/26/17 at 04:00 Methylprednisolone Sodium Succinate (Solu-Medrol) 60 mg DAILY IV Last administered on 06/26/17 09:13; Admin Dose 60 MG; Start 06/26/17 at 06:30 Acyclovir (Zovirax) 400 mg DAILY PO Last administered on 9/27/17at 12:36; Admin Dose 400 MG; Start 06/26/17 at 10:00 Cholecalciferol (Vitamin D) 800 units DAILY PO Last administered on 06/26/17 10:00; Admin Dose 800 UNITS; Start 06/26/17 at 10:00 Prenat Multivit/ [place]/Iron/Folic Ac () 1 tab DAILY PO Last administered on 06/26/17 12:36; Admin Dose 1 TAB; Start 06/26/17 at 10:30 LUKASZ CALL MD Jun 26, 2017 13:46
[2017-06-26 17:24] LABS: BASOPHILS % 0.1 % (0.0-2.0); HEMATOCRIT 35.9 % (37.0-47.0); HEMOGLOBIN 11.9 g/dl (12.0-16.0); LYMPHOCYTES # 0.8 10^3/ul (0.8-2.9); MEAN CORPUSCULAR HEMOGLOBIN 28.1 pg (29.0-33.0); MEAN CORPUSCULAR HGB CONC 33.1 g/dl (32.0-37.0); MEAN CORPUSCULAR VOLUME 84.7 fl (82.0-101.0); MEAN PLATELET VOLUME 9.3 fl (7.4-10.4); MONOCYTE # 0.5 10^3/ul (0.3-0.9); MONOCYTES % 3.8 % (0.0-11.0); NEUTROPHIL # 12.6 10^3/ul (1.6-7.5); NEUTROPHILS % 89.5 % (39.0-77.0); PLATELET COUNT 268 10^3/UL (140-415); RED BLOOD COUNT 4.24 10^6/ul (4.20-5.40); RED CELL DISTRIBUTION WIDTH 12.6 % (11.5-14.5); WHITE BLOOD COUNT 14.1 10^3/ul (4.8-10.8)
[2017-06-26] MEDS: ACETAMINOPHEN 325 MG TAB PO PRN (19:51)
--- NOTE | 2017-06-26 20:04 | CONS ---
DATE OF ADMISSION: 06/26/2017 DATE OF CONSULTATION: 06/26/2017 REASON FOR CONSULTATION: Antibiotic management. HISTORY OF PRESENT ILLNESS: Kellen Trejo is a 26-year-old, Black female with numerous problems including HIV who comes in now with recurrent asthma attacks. The patient is a 26-year-old female who is 7 weeks . Her problems include: 1. HIV. 2. Asthma. 3. HSV virus. She presents to the emergency room with shortness breath and wheezing. Symptoms have been going on for weeks. She has been using inhalers and nebulizing treatments at home with increasing frequency. She has been to number of different hospitals including at our ER 3 days ago for shortness of breath. She started on prednisone and has been taking it for 2 days without improvement. She is compliant with her HIV medicines which is Triumeq, but she does not have any available at the present time. She had a blood test 2 weeks ago for her CD 4 count, but she was unable to get the results. She in the emergency room she was tachycardic at 1:35. Her oxygen saturation was 100 percent on room air. Chest x-ray was clear. PAST MEDICAL HISTORY: Operations as outlined. PAST SURGICAL HISTORY: None. SOCIAL HISTORY: She does not smoke, drink, or abuse drugs. ALLERGIES: NONE TO PENICILLIN, SULFA, OR FOODS. MEDICATION: Per chart. REVIEW OF SYSTEMS: As per HPI. PHYSICAL EXAMINATION: GENERAL APPEARANCE: The patient is a well-developed, well- nourished female who is alert, responsive, in no acute distress. VITAL SIGNS: Stable. She is afebrile. SKIN: Without generalized rash. HEENT: Within normal limits. NECK: Supple. Lymph nodes nonpalpable. CHEST: Decreased breath sounds at the bases. HEART: Without murmur or gallop. ABDOMEN: Soft, nontender, without organosplenomegaly or masses. EXTREMITIES: Without cyanosis, clubbing, or edema. RECTAL: Deferred. NEUROLOGICAL: No focal neurological abnormalities. ANCILLARY LABORATORY DATA: White count on the was 8.3, on the was 12.3, BUN and creatinine is 8/0.5. Lactic acid 2.1. Urine, 2 plus leukocyte esterase, 13 white cells per high power field. Her toxicology screen was negative. IMPRESSION AND PLAN: Patient should be continued on Triumeq, which is a combination of Dolutegravir, abacavir, and lamivudine. We will arrange that with pharmacy. I will dictate my findings to the hospitalist. Dictated By: Richmond Best MD JD/wyatt/yuliana /Document#: [id number]
--- NOTE | 2017-06-26 20:38 | RADRPT ---
PROCEDURE: OB Ultrasound. CLINICAL INDICATION: Positive test. Vaginal bleeding. TECHNIQUE: Ultrasound of the pelvis was performed with transabdominal and transvaginal sonography in the axial and sagittal planes. COMPARISON: No prior study is available for comparison. FINDINGS: There is a single intrauterine gestational sac. pole and yolk sac are present. There is heart motion. heart rate is 150 beats per minute. [place]-rump length is 1.20 cm. Mean sac diameter is 2.38 cm. There is a subchorionic hemorrhage measuring 1 cm in maximal dimension . A hyperechoic fibroid is present anteriorly in the uterus measuring 1.9 x 1.9 x 2.2 cm. Menstrual age by ultrasound dates is 7 weeks 3 days. This indicates an expected date of delivery of 02/09/2018 The right ovary appears normal measuring 3.3 x 1.7 x 2.1 cm. The left ovary appears normal measuring 4.7 x 4.1 x 3.2 cm. Color Doppler and pulsed Doppler sonography demonstrate normal flow to the ovaries. There is no other pelvic mass or free fluid. IMPRESSION: 1. Single live intrauterine gestation of 7 weeks 3 days menstrual age by ultrasound dates. 2. Expected date of delivery is 02/09/2018. 3. Subchorionic hemorrhage measuring 1 cm. 4. Hyperechoic fibroid anteriorly measuring 2.2 cm. RPTAT: QQ .Russel Pearson MD, Date Time Electronically viewed and signed by .Russel Pearson MD, on 06/26/2017 20:38 .R/
[2017-06-26] MEDS ORDERED: ABACAVIR 300 MG TAB PO SCH ×2 (23:00→23:30)
[2017-06-26] MEDS ORDERED: DOLUTEGRAVIR SODIUM 50 MG TABLET PO SCH (23:00)
[2017-06-26] MEDS ORDERED: LAMIVUDINE 150 MG TAB PO SCH (23:00)
[2017-06-27] VITALS (10 sets, daily range): BP systolic 94–125; BP diastolic 57–64; PULSE 78–112; RESP 16–20
[2017-06-27] MEDS: ALBUTEROL/IPRATROPIUM (NEB) 3 ML AMP HHN SCH ×4 (01:33→20:09)
[2017-06-27] MEDS: CEFTRIAXONE 1 GM/50 ML (PMX) 50 ML IVPB SCH (04:14)
[2017-06-27 08:41] LABS: CALCIUM 8.9 mg/dl (8.4-10.2); CREATININE 0.59 mg/dl (0.44-1.00); POTASSIUM 3.5 mmol/L (3.5-5.1)
[2017-06-27] MEDS: METHYLPREDNISOLONE 125 MG INJ IV SCH (08:50)
[2017-06-27] MEDS: LAMIVUDINE 150 MG TAB PO SCH (08:52)
[2017-06-27] MEDS: ABACAVIR 300 MG TAB PO SCH (08:52)
[2017-06-27] MEDS: DOLUTEGRAVIR SODIUM 50 MG TABLET PO SCH (08:53)
[2017-06-27] MEDS: PRENATAL VITAMIN PO SCH (08:54)
[2017-06-27] MEDS: ACYCLOVIR 400 MG TAB PO SCH (08:55)
[2017-06-27] MEDS: CHOLECALCIFEROL 400 UNITS TAB PO SCH (08:56)
[2017-06-27] MEDS: ONDANSETRON 4 MG INJ IV PRN (09:52)
--- NOTE | 2017-06-27 15:14 | PN ---
Date/Time of Note Date/Time of Note DATE: 06/27/17 TIME: 15:13 Assessment/Plan VTE Prophylaxis VTE Prophylaxis Intervention: SCD's Lines/Catheters IV Catheter Type (from Nrs): Saline Lock Assessment/Plan Assessment/Plan 1. Asthma exacerbation, continue on nebulizer, SoluMedrol, and rocephin, O2, improving, decrease steroid 2. Intrauterine , 7 weeks, follow up with Obstetric ultrasound and OB consult 3. History of HIV, ID consult especially given her 4. UTI, Rocephin. Subjective 24 Hr Interval Summary Free Text/Dictation less sob and wheezing Exam/Review of Systems Vital Signs Vitals Vital Signs Date Time Temp Pulse Resp B/P Pulse Ox O2 Delivery O2 Flow Rate FiO2 06/27/17 13:51 94 22 98 Nasal Cannula 2.0 06/27/17 11:38 99.3 94/64 06/26/17 11:42 28 Intake and Output 06/26/17 06/26/17 06/27/17 15:00 23:00 07:00 Intake Total 2300 ml 1550 ml Output Total 1200 ml Balance 2300 ml 350 ml Exam Constitutional: alert, oriented, well developed Psych: nl mood/affect, no complaints Head: atraumatic, normocephalic Eyes: EOMI, PERRL, nl conjunctiva, nl lids, nl sclera ENMT: nl external ears & nose, nl lips & teeth, nl nasal mucosa & septum Neck: non-tender, supple Respiratory: clear to auscultation Cardiovascular: nl pulses, regular rate and rhythm, No S3, No S4, No bruits, No diastolic murmur, No edema, No gallop, No irregular rhythm, No jugular venous distention (JVD), No murmurs/extra sounds, No other, No rub, No systolic murmur Gastrointestinal: nl liver, spleen, non-tender, soft, No ascites, No bowel sounds, No distended, No firm, No hepatomegaly, No mass , No other, No rebound or guarding, No splenomegaly, No surgical scars, No tender Musculoskeletal: nl extremities to inspection Extremities: normal pulses, No calf tenderness, No clubbing, No cyanosis, No edema, No other, No palpable cord, No pitting pedal edema, No tenderness Neurological: HEAD OF STOCK II-XII intact, nl mental status, nl speech, nl strength Skin: nl turgor Lymph: nl lymph nodes Results Result Diagram: 06/26/17 1652 06/27/17 0657 Results 24 hrs Laboratory Tests Test 06/26/17 16:52 06/27/17 06:57 White Blood Count 14.1 H Red Blood Count 4.24 Hemoglobin 11.9 L Hematocrit 35.9 L Mean Corpuscular Volume 84.7 Mean Corpuscular Hemoglobin 28.1 L Mean Corpuscular Hemoglobin Concent 33.1 Red Cell Distribution Width 12.6 Platelet Count 268 Mean Platelet Volume 9.3 Neutrophils % 89.5 H Lymphocytes % 6.0 L Monocytes % 3.8 Eosinophils % 0.0 Basophils % 0.1 Nucleated Red Blood Cells % 0.0 Neutrophils # 12.6 H Lymphocytes # 0.8 Monocytes # 0.5 Eosinophils # 0.0 Basophils # 0.0 Nucleated Red Blood Cells # 0.0 Sodium Level 138 Potassium Level 3.5 Chloride Level 111 H Carbon Dioxide Level 21 Anion Gap 10 Blood Urea Nitrogen 9 Creatinine 0.59 Glucose Level 72 Calcium Level 8.9 Medications Medications Current Medications Ondansetron HCl (Zofran Inj) 4 mg Q6H PRN IV NAUSEA AND/OR VOMITING Last administered on 06/27/17 09:52; Admin Dose 4 MG; Start 06/26/17 at 01:30 Acetaminophen (Tylenol Tab) 650 mg Q6H PRN PO PAIN AND OR ELEVATED TEMP Last administered on 06/26/17 19:51; Admin Dose 650 MG; Start 06/26/17 at 01:30 Morphine Sulfate 2 mg 2 mg Q4H PRN IV PAIN LEVEL 6-10; Start 06/26/17 at 01:30 Ceftriaxone Sodium (Rocephin) 50 ml @ 100 mls/hr Q24H IVPB Last administered on 06/27/17 04:14; Admin Dose 100 MLS/HR; Start 06/26/17 at 04:00 Acyclovir (Zovirax) 400 mg DAILY PO Last administered on 06/27/17 08:55; Admin Dose 400 MG; Start 06/26/17 at 10:00 Cholecalciferol (Vitamin D) 800 units DAILY PO Last administered on 06/27/17 08:56; Admin Dose 800 UNITS; Start 06/26/17 at 10:00 Prenat Multivit/ [place]/Iron/Folic Ac () 1 tab DAILY PO Last administered on 06/27/17 08:54; Admin Dose 1 TAB; Start 06/26/17 at 10:30 Abacavir Sulfate (Ziagen) 600 mg DAILY PO Last administered on 06/27/17 08:52 ; Admin Dose 600 MG; Start 06/27/17 at 09:00 Lamivudine (Epivir) 300 mg DAILY PO Last administered on 06/27/17 08:52; Admin Dose 300 MG; Start 06/27/17 at 09:00 Dolutegravir Sodium (Tivicay) 50 mg DAILY PO Last administered on 06/27/17 08: 53; Admin Dose 50 MG; Start 06/27/17 at 09:00 Methylprednisolone Sodium Succinate (Solu-Medrol) 20 mg Q12H IV ; Start at 21:00; Status LUKASZ VALENTE MD Jun 27, 2017 15:14
--- NOTE | 2017-06-27 15:20 | PN ---
DATE: 06/27/2017 SUBJECTIVE DATA: The patient is alert, feels slightly better, still with shortness of breath on exertion. Wheezing is better. No fevers. Temperature 99.3, pulse 86, respirations 20, blood pressure 96/64, saturation 100 on 2 L. LABORATORY: No labs this morning. ANTIMICROBIALS: The patient is on Epivir, Ziagen, TIVICAY, Rocephin. She is also getting IV steroids. PHYSICAL EXAMINATION: GENERAL: This is a well-nourished, well developed, young - [place] woman who is alert, in no distress. HEENT: Head atraumatic, normocephalic. Sclerae anicteric. Buccal mucosa pink. NECK: Supple. CHEST: Rise symmetrical. Breath sounds diminished at the bases. HEART: S1, S2. ABDOMEN: Soft, bowel sounds present. ASSESSMENT: 1. Acute asthma exacerbation. 2. Human immunodeficiency virus disease. 3. History of herpes simplex virus and noncompliance with human immunodeficiency virus medications. PLAN: The patient remains stable. We will order CD4 count. Continue present care. Continue HIV medications. Steroid and bronchodilators, taper. Dictated By: Susy Mark NP /wyatt/esteban /Document#: [id number]
[2017-06-27] MEDS: SALMETEROL/FLUTICASONE 250/50 INHA INH SCH ×2 (15:21→20:56)
[2017-06-27] MEDS: METHYLPREDNISOLONE 40 MG INJ IV SCH (20:58)
[2017-06-28] VITALS (12 sets, daily range): BP systolic 91–127; BP diastolic 52–67; PULSE 79–108; RESP 16–20
[2017-06-28] MEDS: ALBUTEROL/IPRATROPIUM (NEB) 3 ML AMP HHN SCH ×4 (01:34→20:16)
[2017-06-28] MEDS: CEFTRIAXONE 1 GM/50 ML (PMX) 50 ML IVPB SCH (04:09)
[2017-06-28 08:41] LABS: BASOPHILS % 0.1 % (0.0-2.0); EOSINOPHILS % 0.2 % (0.0-7.0); HEMATOCRIT 40.3 % (37.0-47.0); HEMOGLOBIN 13.3 g/dl (12.0-16.0); LYMPHOCYTES # 1.7 10^3/ul (0.8-2.9); LYMPHOCYTES % 15.1 % (15.0-51.0); MEAN CORPUSCULAR HEMOGLOBIN 27.6 pg (29.0-33.0); MEAN CORPUSCULAR VOLUME 83.6 fl (82.0-101.0); MEAN PLATELET VOLUME 9.5 fl (7.4-10.4); MONOCYTE # 0.7 10^3/ul (0.3-0.9); MONOCYTES % 5.9 % (0.0-11.0); NEUTROPHIL # 8.8 10^3/ul (1.6-7.5); NEUTROPHILS % 78.3 % (39.0-77.0); PLATELET COUNT 333 10^3/UL (140-415); RED BLOOD COUNT 4.82 10^6/ul (4.20-5.40); RED CELL DISTRIBUTION WIDTH 12.6 % (11.5-14.5); WHITE BLOOD COUNT 11.2 10^3/ul (4.8-10.8)
[2017-06-28 08:54] LABS: CALCIUM 9.9 mg/dl (8.4-10.2); CREATININE 0.6 mg/dl (0.44-1.00); POTASSIUM 3.6 mmol/L (3.5-5.1)
[2017-06-28] MEDS: CHOLECALCIFEROL 400 UNITS TAB PO SCH (09:00)
[2017-06-28] MEDS: LAMIVUDINE 150 MG TAB PO SCH (09:59)
[2017-06-28] MEDS: SALMETEROL/FLUTICASONE 250/50 INHA INH SCH ×2 (09:59→20:07)
[2017-06-28] MEDS: DOLUTEGRAVIR SODIUM 50 MG TABLET PO SCH (09:59)
[2017-06-28] MEDS: PRENATAL VITAMIN PO SCH (09:59)
[2017-06-28] MEDS: ACYCLOVIR 400 MG TAB PO SCH (10:00)
[2017-06-28] MEDS: METHYLPREDNISOLONE 40 MG INJ IV SCH (10:02)
[2017-06-28] MEDS: ONDANSETRON 4 MG INJ IV PRN (10:13)
[2017-06-28] MEDS: ALBUTEROL/IPRATROPIUM (NEB) 3 ML AMP HHN PRN (11:07)
[2017-06-28] MEDS: ABACAVIR 300 MG TAB PO SCH (11:43)
--- NOTE | 2017-06-28 14:04 | CONS ---
Date/Time of Note Date/Time of Note DATE: 06/28/17 TIME: 14:02 Assessment/Plan Assessment/Plan Chief Complaint/Hosp Course SUBJECTIVE DATA: The patient is alert, feels better, no fevers, comfortable on nasal cannula LABORATORY: No labs this morning. ANTIMICROBIALS: The patient is on Epivir, Ziagen, TIVICAY, Rocephin Zovirax. She is also getting steroids. PHYSICAL EXAMINATION: GENERAL: This is a well-nourished, well developed, young - [place] woman who is alert, in no distress. HEENT: Head atraumatic, normocephalic. Sclerae anicteric. Buccal mucosa pink. NECK: Supple. CHEST: Rise symmetrical. Breath sounds diminished at the bases. HEART: S1, S2. ABDOMEN: Soft, bowel sounds present. ASSESSMENT: 1. Acute asthma exacerbation. 2. Human immunodeficiency virus disease. 3. History of herpes simplex virus and noncompliance with human immunodeficiency virus medications. PLAN: The patient remains stable. Pending CD4 count. Continue present care. Continue HIV medications. Follow pulmonary recommendations Problems: Consultation Date/Type/Reason Admit Date/Time Jun 26, 2017 at 00:13 Initial Consult Date Type of Consultation: ID Exam/Review of Systems Vital Signs Vitals Vital Signs Date Time Temp Pulse Resp B/P Pulse Ox O2 Delivery O2 Flow Rate FiO2 06/28/17 13:31 102 20 98 Nasal Cannula 2.0 06/28/17 12:00 98.1 122/67 06/28/17 07:26 21 Intake and Output 06/27/17 06/27/17 06/28/17 15:00 23:00 07:00 Intake Total 1400 ml 550 ml Output Total 1200 ml Balance 200 ml 550 ml Results Result Diagram: 06/28/17 0732 06/28/17 0732 Results 24 hrs Laboratory Tests Test 06/28/17 07:32 White Blood Count 11.2 #H Red Blood Count 4.82 Hemoglobin 13.3 Hematocrit 40.3 Mean Corpuscular Volume 83.6 Mean Corpuscular Hemoglobin 27.6 L Mean Corpuscular Hemoglobin Concent 33.0 Red Cell Distribution Width 12.6 Platelet Count 333 # Mean Platelet Volume 9.5 Neutrophils % 78.3 H Lymphocytes % 15.1 Monocytes % 5.9 Eosinophils % 0.2 Basophils % 0.1 Nucleated Red Blood Cells % 0.0 Neutrophils # 8.8 H Lymphocytes # 1.7 Monocytes # 0.7 Eosinophils # 0.0 Basophils # 0.0 Nucleated Red Blood Cells # 0.0 Sodium Level 134 L Potassium Level 3.6 Chloride Level 103 Carbon Dioxide Level 23 Anion Gap 12 Blood Urea Nitrogen 9 Creatinine 0.60 Glucose Level 71 Calcium Level 9.9 Medications Medications Current Medications Ondansetron HCl (Zofran Inj) 4 mg Q6H PRN IV NAUSEA AND/OR VOMITING Last administered on 06/28/17 10:13; Admin Dose 4 MG; Start 06/26/17 at 01:30 Acetaminophen (Tylenol Tab) 650 mg Q6H PRN PO PAIN AND OR ELEVATED TEMP Last administered on 06/26/17 19:51; Admin Dose 650 MG; Start 06/26/17 at 01:30 Morphine Sulfate 2 mg 2 mg Q4H PRN IV PAIN LEVEL 6-10; Start 06/26/17 at 01:30 Ceftriaxone Sodium (Rocephin) 50 ml @ 100 mls/hr Q24H IVPB Last administered on 06/28/17 04:09; Admin Dose 100 MLS/HR; Start 06/26/17 at 04:00 Acyclovir (Zovirax) 400 mg DAILY PO Last administered on 06/28/17 10:00; Admin Dose 400 MG; Start 06/26/17 at 10:00 Cholecalciferol (Vitamin D) 800 units DAILY PO Last administered on 06/28/17 09:00; Admin Dose 800 UNITS; Start 06/26/17 at 10:00 Prenat Multivit/ [place]/Iron/Folic Ac () 1 tab DAILY PO Last administered on 06/28/17 09:59; Admin Dose 1 TAB; Start 06/26/17 at 10:30 Abacavir Sulfate (Ziagen) 600 mg DAILY PO Last administered on 06/28/17 11:43 ; Admin Dose 600 MG; Start 06/27/17 at 09:00 Lamivudine (Epivir) 300 mg DAILY PO Last administered on 06/28/17 09:59; Admin Dose 300 MG; Start 06/27/17 at 09:00 Dolutegravir Sodium (Tivicay) 50 mg DAILY PO Last administered on 06/28/17 09: 59; Admin Dose 50 MG; Start 06/27/17 at 09:00 Methylprednisolone Sodium Succinate (Solu-Medrol) 20 mg Q12H IV Last administered on 06/28/17t 10:02; Admin Dose 20 MG; Start 06/27/17 at 21:00 JHONATAN BRIGHT NP Jun 28, 2017 14:04
--- NOTE | 2017-06-28 14:19 | PN ---
Date/Time of Note Date/Time of Note DATE: 06/28/17 TIME: 14:18 Assessment/Plan VTE Prophylaxis VTE Prophylaxis Intervention: SCD's Lines/Catheters IV [facility] (from [facility] Saline Lock Urinary Cath still in place: No Assessment/Plan Assessment/Plan 1. Asthma exacerbation, continue on nebulizer, and rocephin, O2, improving, change steroid to tapering dosage of prednisone 2. Intrauterine , 7 weeks, follow up with Obstetric ultrasound and OB consult 3. History of HIV, ID consult especially given her 4. UTI, Rocephin. Subjective 24 Hr Interval Summary Free Text/Dictation better Exam/Review of Systems Vital Signs Vitals Vital Signs Date Time Temp Pulse Resp B/P Pulse Ox O2 Delivery O2 Flow Rate FiO2 06/28/17 13:31 102 20 98 Nasal Cannula 2.0 06/28/17 12:00 98.1 122/67 06/28/17 07:26 21 Intake and Output 06/27/17 06/27/17 06/28/17 15:00 23:00 07:00 Intake Total 1400 ml 550 ml Output Total 1200 ml Balance 200 ml 550 ml Exam Constitutional: alert, oriented, well developed Psych: nl mood/affect, no complaints Head: atraumatic, normocephalic Eyes: EOMI, PERRL, nl conjunctiva, nl lids, nl sclera ENMT: nl external ears & nose, nl lips & teeth, nl nasal mucosa & septum Neck: non-tender, supple Respiratory: clear to auscultation, normal air movement, No congested cough, No crackles/rales, No diminished breath sounds, No intercostal retraction, No labored breathing, No other, No respirations, No tactile fremitus, No wheezing Cardiovascular: nl pulses, regular rate and rhythm, No S3, No S4, No bruits, No diastolic murmur, No edema, No gallop, No irregular rhythm, No jugular venous distention (JVD), No murmurs/extra sounds, No other, No rub, No systolic murmur Gastrointestinal: nl liver, spleen, non-tender, soft, No ascites, No bowel sounds, No distended, No firm, No hepatomegaly, No mass , No other, No rebound or guarding, No splenomegaly, No surgical scars, No tender Musculoskeletal: nl extremities to inspection Extremities: normal pulses, No calf tenderness, No clubbing, No cyanosis, No edema, No other, No palpable cord, No pitting pedal edema, No tenderness 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7 Monocytes # 0.7 Eosinophils # 0.0 Basophils # 0.0 Nucleated Red Blood Cells # 0.0 Sodium Level 134 L Potassium Level 3.6 Chloride Level 103 Carbon Dioxide Level 23 Anion Gap 12 Blood Urea Nitrogen 9 Creatinine 0.60 Glucose Level 71 Calcium Level 9.9 Medications Medications Current Medications Ondansetron HCl (Zofran Inj) 4 mg Q6H PRN IV NAUSEA AND/OR VOMITING Last administered on 06/28/17 10:13; Admin Dose 4 MG; Start 06/26/17 at 01:30 Acetaminophen (Tylenol Tab) 650 mg Q6H PRN PO PAIN AND OR ELEVATED TEMP Last administered on 06/26/17 19:51; Admin Dose 650 MG; Start 06/26/17 at 01:30 Morphine Sulfate 2 mg 2 mg Q4H PRN IV PAIN LEVEL 6-10; Start 06/26/17 at 01:30 Ceftriaxone Sodium (Rocephin) 50 ml @ 100 mls/hr Q24H IVPB Last administered on 06/28/17 04:09; Admin Dose 100 MLS/HR; Start 06/26/17 at 04:00 Acyclovir (Zovirax) 400 mg DAILY PO Last administered on 06/28/17 10:00; Admin Dose 400 MG; Start 06/26/17 at 10:00 Cholecalciferol (Vitamin D) 800 units DAILY PO Last administered on 06/28/17 09:00; Admin Dose 800 UNITS; Start 06/26/17 at 10:00 Prenat Multivit/ [place]/Iron/Folic Ac () 1 tab DAILY PO Last administered on 06/28/17 09:59; Admin Dose 1 TAB; Start 06/26/17 at 10:30 Abacavir Sulfate (Ziagen) 600 mg DAILY PO Last administered on 06/28/17 11:43 ; Admin Dose 600 MG; Start 06/27/17 at 09:00 Lamivudine (Epivir) 300 mg DAILY PO Last administered on 06/28/17 09:59; Admin Dose 300 MG; Start 06/27/17 at 09:00 Dolutegravir Sodium (Tivicay) 50 mg DAILY PO Last administered on 06/28/17 09: 59; Admin Dose 50 MG; Start 06/27/17 at 09:00 Methylprednisolone Sodium Succinate (Solu-Medrol) 20 mg Q12H IV Last administered on 06/28/17 10:02; Admin Dose 20 MG; Start 06/27/17 at 21:00 LUKASZ CALL MD Jun 28, 2017 14:19
[2017-06-29] VITALS (12 sets, daily range): BP systolic 98–127; BP diastolic 52–74; PULSE 86–107; RESP 16–18
[2017-06-29] MEDS: ALBUTEROL/IPRATROPIUM (NEB) 3 ML AMP HHN SCH ×4 (01:36→19:36)
[2017-06-29] MEDS: CEFTRIAXONE 1 GM/50 ML (PMX) 50 ML IVPB SCH (04:07)
[2017-06-29] MEDS: ALBUTEROL/IPRATROPIUM (NEB) 3 ML AMP HHN PRN (05:00)
[2017-06-29] MEDS: SALMETEROL/FLUTICASONE 250/50 INHA INH SCH ×2 (09:18→21:48)
[2017-06-29] MEDS: predniSONE 10 MG TAB PO SCH (09:18)
[2017-06-29] MEDS: ABACAVIR 300 MG TAB PO SCH (09:18)
[2017-06-29] MEDS: DOLUTEGRAVIR SODIUM 50 MG TABLET PO SCH (09:18)
[2017-06-29] MEDS: LAMIVUDINE 150 MG TAB PO SCH (09:19)
[2017-06-29] MEDS: PRENATAL VITAMIN PO SCH (09:19)
[2017-06-29] MEDS: CHOLECALCIFEROL 400 UNITS TAB PO SCH (09:19)
[2017-06-29] MEDS: ACYCLOVIR 400 MG TAB PO SCH (09:19)
[2017-06-29] MEDS: ONDANSETRON 4 MG INJ IV PRN ×2 (11:12→21:48)
[2017-06-29 12:11] LABS: LYMPHOCYTE - CD4/CD8 RATIO 0.6 (0.86-5.00)
--- NOTE | 2017-06-29 15:30 | CONS ---
Date/Time of Note Date/Time of Note DATE: 06/29/17 TIME: 15:30 Assessment/Plan Assessment/Plan Chief Complaint/Hosp Course ID PROGRESS NOTE TOTAL ABX DAY # 3 Ceftriaxone CURRENT ABX=> Epivir, Ziagen, TIVICAY, Rocephin Zovirax. 24H INTERVAL SUMMARY * NO fever, WBC normalized, feeling better-- talking on the phone without wheeze * She is also getting steroids. * Urine sample == contaminated catch URINE CULTURE Final Organism 1 MIXED GRAM POSITIVE ORGANISMS COLONY COUNT 30,000 - 40,000 CFU/ml GENERAL: VSS, NAD HEENT: Unremarkable NECK: Trach midline, full ROM CHEST: Rise symmetrical without dyspnea on observation ABDOMEN: Soft, EXTREMITIES: Warm,(+) moves extremities SKIN: No diaphoresis, no rash ID ASSESSMENT: 26 yo F admit with: 1. Acute asthmatic bronchitis exacerbation. 2. Human immunodeficiency virus disease w/CD4# 437 3. Intrauterine , 7 weeks, 4. Leukocytosis -> steroid induced likely 5. Psych Dx: PTSD w/depression/anxiety 6. History of herpes simplex virus INVASIVES: ABX ALLERGY: Vanco IV TOTAL ABX DAY # 3 Ceftriaxone CURRENT ABX=> Epivir, Ziagen, TIVICAY, Zovirax. ID PLAN 1. HIV meds adjusted per 2. Improved on Ceftriaxone -> CXR without focal infiltrate 3. May DC OFF Ceftriaxone when cleared by primary - no evidence of PNA, patient has improved. 4. Pt to follow up with outside HIV Provider & CLOTH PRINTING BACK TENDER upon discharge . Problems: Consultation Date/Type/Reason Admit Date/Time Jun 26, 2017 at 00:13 Initial Consult Date Type of Consultation: ID Exam/Review of Systems Vital Signs Vitals Vital Signs Date Time Temp Pulse Resp B/P Pulse Ox O2 Delivery O2 Flow Rate FiO2 06/29/17 13:49 2.0 06/29/17 13:49 95 20 95 Nasal Cannula 06/29/17 11:52 98.0 127/67 06/29/17 01:37 21 Intake and Output 06/28/17 06/28/17 06/29/17 14:59 22:59 06:59 Intake Total 950 ml 350 ml Balance 950 ml 350 ml Results Result Diagram: 06/28/17 0732 06/28/17 0732 Medications Medications Current Medications Ondansetron HCl (Zofran Inj) 4 mg Q6H PRN IV NAUSEA AND/OR VOMITING Last administered on 06/29/17 11:12; Admin Dose 4 MG; Start 06/26/17 at 01:30 Acetaminophen (Tylenol Tab) 650 mg Q6H PRN PO PAIN AND OR ELEVATED TEMP Last administered on 06/26/17 19:51; Admin Dose 650 MG; Start 06/26/17 at 01:30 Morphine Sulfate 2 mg 2 mg Q4H PRN IV PAIN LEVEL 6-10; Start 06/26/17 at 01:30 Ceftriaxone Sodium (Rocephin) 50 ml @ 100 mls/hr Q24H IVPB Last administered on 06/29/17 04:07; Admin Dose 100 MLS/HR; Start 06/26/17 at 04:00 Acyclovir (Zovirax) 400 mg DAILY PO Last administered on 06/29/17 09:19; Admin Dose 400 MG; Start 06/26/17 at 10:00 Cholecalciferol (Vitamin D) 800 units DAILY PO Last administered on 06/29/17 09:19; Admin Dose 800 UNITS; Start 06/26/17 at 10:00 Prenat Multivit/ Group Reservations Coordinator/Iron/Folic Ac () 1 tab DAILY PO Last administered on 06/29/17 09:19; Admin Dose 1 TAB; Start 06/26/17 at 10:30 Abacavir Sulfate (Ziagen) 600 mg DAILY PO Last administered on 06/29/17 09:18 ; Admin Dose 600 MG; Start 06/27/17 at 09:00 Lamivudine (Epivir) 300 mg DAILY PO Last administered on 06/29/17 09:19; Admin Dose 300 MG; Start 06/27/17 at 09:00 Dolutegravir Sodium (Tivicay) 50 mg DAILY PO Last administered on 06/29/17 09: 18; Admin Dose 50 MG; Start 06/27/17 at 09:00 Prednisone (Prednisone) 10 mg DAILY PO Last administered on 06/29/17 09:18; Admin Dose 10 MG; Start 06/29/17 at 09:00 ABIGAIL GAXIOLA NP Jun 29, 2017 15:30
--- NOTE | 2017-06-29 17:05 | PN ---
Date/Time of Note Date/Time of Note DATE: 06/29/17 TIME: 16:55 Assessment/Plan VTE Prophylaxis VTE Prophylaxis Intervention: SCD's Lines/Catheters IV [facility] ([facility] [place] Urinary Cath still in place: No Assessment/Plan Chief Complaint/Hosp Course 1. Asthma exacerbation, continue on nebulizer, and rocephin, O2, improving, change steroid to tapering dosage of prednisone 2. Intrauterine , 7 weeks, OB laborist communication lecturer consulted over phone given findings on 1st OB US, recommends repeat OB US today. Overall, no acute treatment at this time, will require frequent repeat US in the future. Patient needs a primary jewelry bearing maker outpatient. Has no followup currently. 3. History of HIV, ID consult especially given her 4. UTI, likely contaminated, but will treat regardless given , keflex as patient has stabilized Problems: Subjective 24 Hr Interval Summary Free Text/Dictation no acute complaints, no sob Exam/Review of Systems Vital Signs Vitals Vital Signs Date Time Temp Pulse Resp B/P Pulse Ox O2 Delivery O2 Flow Rate FiO2 06/29/17 16:18 102 06/29/17 15:55 98.0 18 116/58 97 06/29/17 13:49 2.0 06/29/17 13:49 Nasal Cannula 06/29/17 01:37 21 Intake and Output 06/28/17 06/28/17 06/29/17 15:00 23:00 07:00 Intake Total 950 ml 350 ml Balance 950 ml 350 ml Exam Physical exam General: Patient is laying in bed and answers questions appropriately Mentation: Patient is alert and oriented 4, Head: Normocephalic atraumatic Eyes: EOMI, pupils reactive to light Neck: Supple, nontender, midline Respiratory: Clear to auscultation bilaterally Cardiovascular: regular rate, no obvious murmurs Gastrointestinal: non-tender to palpation, bowel sounds heard. Neurological: Moves all extremities spontaneously Skin: No new skin lesions Results Result Diagram: 06/28/17 0732 06/28/17 0732 Medications Medications Current Medications Ondansetron HCl (Zofran Inj) 4 mg Q6H PRN IV NAUSEA AND/OR VOMITING Last administered on 06/29/17t 11:12; Admin Dose 4 MG; Start 06/26/17 at 01:30 Acetaminophen (Tylenol Tab) 650 mg Q6H PRN PO PAIN AND OR ELEVATED TEMP Last administered on 06/26/17 19:51; Admin Dose 650 MG; Start 06/26/17 at 01:30 Morphine Sulfate 2 mg 2 mg Q4H PRN IV PAIN LEVEL 6-10; Start 06/26/17 at 01:30 Ceftriaxone Sodium (Rocephin) 50 ml @ 100 mls/hr Q24H IVPB Last administered on 06/29/17 04:07; Admin Dose 100 MLS/HR; Start 06/26/17 at 04:00 Acyclovir (Zovirax) 400 mg DAILY PO Last administered on 06/29/17 09:19; Admin Dose 400 MG; Start 06/26/17 at 10:00 Cholecalciferol (Vitamin D) 800 units DAILY PO Last administered on 06/29/17 09:19; Admin Dose 800 UNITS; Start 06/26/17 at 10:00 Prenat Multivit/ [place]/Iron/Folic Ac () 1 tab DAILY PO Last administered on 06/29/17 09:19; Admin Dose 1 TAB; Start 06/26/17 at 10:30 Abacavir Sulfate (Ziagen) 600 mg DAILY PO Last administered on 06/29/17 09:18 ; Admin Dose 600 MG; Start 06/27/17 at 09:00 Lamivudine (Epivir) 300 mg DAILY PO Last administered on 06/29/17 09:19; Admin Dose 300 MG; Start 06/27/17 at 09:00 Dolutegravir Sodium (Tivicay) 50 mg DAILY PO Last administered on 06/29/17 09: 18; Admin Dose 50 MG; Start 06/27/17 at 09:00 Prednisone (Prednisone) 10 mg DAILY PO Last administered on 06/29/17 09:18; Admin Dose 10 MG; Start 06/29/17 at 09:00 GLADYS OREILLY Jun 29, 2017 17:05
--- NOTE | 2017-06-29 20:42 | RADRPT ---
PROCEDURE: OB Ultrasound. CLINICAL INDICATION: Positive test. Vaginal bleeding. TECHNIQUE: Ultrasound of the pelvis was performed with transabdominal sonography in the axial and sagittal planes. COMPARISON: 06/26/2017. FINDINGS: There is a single intrauterine gestational sac. pole and yolk sac are present. There is heart motion. heart rate is 168 beats per minute. [place]-rump length is 1.62 cm. Mean sac diameter is 3.14 cm. There is a small subchorionic hemorrhage. Menstrual age by ultrasound dates is 8 weeks 1 day. This indicates an expected date of delivery of 02/07/2018. The right ovary is not visualized. The left ovary measures 4.9 x 3.4 x 3.2 cm. There is a benign left ovarian cyst measuring 3.1 x 2.8 x 2.6 cm. There are no internal echoes or septations. Color Doppler and pulsed Doppler sonography demonstrate normal flow to the left ovary. There is no other pelvic mass or free fluid. IMPRESSION: 1. Single live intrauterine gestation of 8 weeks 1 day menstrual age by ultrasound dates. 2. Expected date of delivery is 02/07/2018. 3. Small subchorionic hemorrhage. 4. Benign left ovarian cyst measuring 3.1 x 2.8 x 2.6 cm. 5. Right ovary not visualized. RPTAT: QQ .Russel Pearson MD, Date Time Electronically viewed and signed by .Russel Pearson MD, on 06/29/2017 20:41 .R/
[2017-06-29] MEDS: CEPHALEXIN 500 MG CAP PO SCH (21:48)
[2017-06-30 00:24] VITALS: PULSE 92
[2017-06-30 00:30] VITALS: BP 100/68; PULSE 90; RESP 16
[2017-06-30] MEDS: ALBUTEROL/IPRATROPIUM (NEB) 3 ML AMP HHN SCH ×3 (02:00→13:24)
[2017-06-30 04:14] VITALS: PULSE 93
[2017-06-30 05:30] VITALS: BP 102/80; PULSE 88; RESP 18
[2017-06-30] MEDS: ALBUTEROL/IPRATROPIUM (NEB) 3 ML AMP HHN PRN (06:09)
[2017-06-30 07:46] VITALS: BP 125/62; RESP 20
[2017-06-30] MEDS: SALMETEROL/FLUTICASONE 250/50 INHA INH SCH (08:30)
[2017-06-30] MEDS: ABACAVIR 300 MG TAB PO SCH (08:30)
[2017-06-30] MEDS: CHOLECALCIFEROL 400 UNITS TAB PO SCH (08:31)
[2017-06-30] MEDS: CEPHALEXIN 500 MG CAP PO SCH (08:31)
[2017-06-30] MEDS: DOLUTEGRAVIR SODIUM 50 MG TABLET PO SCH (08:31)
[2017-06-30] MEDS: LAMIVUDINE 150 MG TAB PO SCH (08:31)
[2017-06-30] MEDS: PRENATAL VITAMIN PO SCH (08:32)
[2017-06-30] MEDS: predniSONE 10 MG TAB PO SCH (08:32)
[2017-06-30] MEDS: ACYCLOVIR 400 MG TAB PO SCH (08:32)
--- NOTE | 2017-06-30 11:04 | PDOCDIS ---
Discharge Instructions CONDITION Patient Condition: Stable HOME CARE INSTRUCTIONS: Diet Instructions: RegularSpecial Diet: REGULAR ACTIVITY: Activity Restrictions: Slowly Increase Activity FOLLOW UP/APPOINTMENTS Follow-up Plan 1. Follow up with your primary care provider and tanning drum operator as soon as possible 2. Repeat ultrasounds must be done for your , as a small subchorionic hemorrhage was found, but stable. 3. Take other medications as directed. GLADYS OREILLY Jun 30, 2017 11:04
[2017-06-30] MEDS: ACETAMINOPHEN 325 MG TAB PO PRN (11:11)
[2017-06-30] MEDS ORDERED: CEPH500C PO (11:13)
[2017-06-30] MEDS ORDERED: MONT10TA24 PO (11:13)
[2017-06-30] MEDS ORDERED: ADV25050 INH (11:13)
[2017-06-30] MEDS ORDERED: ALBU8.5H3 INH (11:13)
[2017-06-30] MEDS ORDERED: PRED10TA PO (11:13)
[2017-06-30] MEDS ORDERED: ABAC1TAB12 PO (11:13)
[2017-06-30] MEDS ORDERED: DOLU50TA PO (11:13)
[2017-06-30] MEDS: ONDANSETRON 4 MG INJ IV PRN (12:28)
--- NOTE | 2017-06-30 14:32 | DS ---
Date/Time of Note Date/Time of Note DATE: 06/30/17 TIME: 14:32 Discharge Summary Admission/Discharge Info Admit Date/Time Jun 26, 2017 at 00:13 Discharge Date/Time Jun 30, 2017 at 13:50 Patient Condition: Stable Hx of Present Illness This is a 26-year-old female who is 7 weeks , with a history of asthma, HIV, HSV who presented to the emergency department complaining of shortness of breath and wheezing. Symptoms has been going on for weeks. Has been using her inhalers and nebulizing treatments at home with increased frequency. She said she has been to different hospitals including here in our ER 3 days ago for shortness of breath. She was started on a prednisone and she has been taking it for the past 2 days without improvement in her symptom. She said that she is compliant with her HIV medications. She had a blood test done at a clinic 2 weeks ago and is awaiting results of her CD4 counts. When she presented to the ER, she was tachycardic with a heart rate of 135. Oxygen saturation was 100% on room air. Chest x-ray is clear Hospital Course Discharge diagnosis Asthma exacerbation, resolved Intrauterine , 8 weeks HIV UTI Shortness of breath Small subchorionic hemorrhage Patient is a 26-year-old female who is 8 weeks with a past medical history of asthma and HIV who presented to the emergency department complaining of shortness of breath and wheezing. Patient was admitted into the medicine service and over the course of a few days with steroids and breathing treatments patient's asthma had improved significantly. Patient also received antibiotics per infectious disease and her intrauterine was also assessed with ultrasound, and a small subchorionic hemorrhage was found, OB was consulted over the telephone was stated that management would consist of monitoring as patient does not have active symptoms of bleeding, and he recommended repeat ultrasound, second ultrasound did not show any acute changes , redemonstrated small subchorionic hemorrhage. Patient's CD4 count came back at over 400, which is a significant improvement from her previous CD4 count approximately 6 months ago. Patient was given prescriptions for all her medications including medication to complete her course for her UTI as well as HIV medication. Patient was also given a small dose of prednisone to finish out her course. Patient was given resources by social media designer regarding how to follow-up with BUILDING TRADES INSTRUCTOR and patient states that she will follow-up with her primary care physician as soon as possible. Home Meds Active Scripts Prednisone* (Prednisone*) 10 Mg Tab, 10 MG PO DAILY for 3 Days, #3 TAB Prov:GLADYS OREILLY 06/30/17 Salmeterol Xinaf/Fluticasone* (Advair*) 250-50 Diskus Inhaler, 1 INH INH Q12, # 1 BLIST PACK 2 Refills Prov:GLADYS OREILLY 06/30/17 Cephalexin* (Cephalexin*) 500 Mg Capsule, 500 MG PO BID for 6 Days, #12 CAP Prov:GLADYS OREILLY 06/30/17 Albuterol Sulfate* (Proair HFA*) 8.5 Gm Hfa.aer.ad, 2 PUFF INH Q4H Y for WHEEZING AND SOB, #1 INHALER 2 Refills Prov:GLADYS OREILLY 06/30/17 Abacavir/Dolutegravir/Lamivudi (Triumeq Tablet) 1 Each Tablet, 1 EACH PO DAILY for 30 Days, #30 TAB 2 Refills Prov:GLADYS OREILLY 06/30/17 Cholecalciferol (Vitamin D3) 400 Unit Tablet, 800 UNITS PO DAILY for 90 Days, TAB Prov:YAMEL MEREDITH 11/30/16 Reported Medications Vit-Iron Fumarate-FA ( Tablet) 1 Each Tablet, 1 TAB PO DAILY, TAB 06/25/17 Discontinued Scripts Montelukast Sodium* (Montelukast Sodium*) 10 Mg Tablet, 10 MG PO QHS for 30 Days , #30 TAB 2 Refills Prov:GLADYS OREILLY 06/30/17 Prednisone* (Prednisone*) 20 Mg Tab, 40 MG PO DAILY for 3 Days, TAB Prov:MIKE MIRANDA 06/23/17 Ipratropium-Albuterol (Ipratropium-Albuterol) 0.5-3 Mg/3 Ml Ampul.neb, 3 ML HHN Q6 Y for dyspnea, #120 Prov:PAUL TOURE 04/09/17 Albuterol Sulfate* (Albuterol Sulfate* Neb) 0.083%-3 Ml Neb, 2.5 MG NEB Q4 Y for SHORTNESS OF BREATH, #30 EA Prov:PAUL TOURE 04/09/17 Acyclovir* (Acyclovir*) 400 Mg Tablet, 400 MG PO DAILY for 90 Days, TAB Prov:YAMEL MEREDITH 11/30/16 Prednisone* (Prednisone*) 20 Mg Tab, 40 MG PO DAILY for 4 Days, TAB Prov:PAUL TOURE 04/09/17 Azithromycin* (Zithromax*) 250 Mg Tablet, 250 MG PO .ZPACK DIRECTED, #6 TAB TAKE 500 MG (2 TABS) THE FIRST DAY THEN 250 MG (1 TAB) DAYS 2-5 Prov:PAUL TOURE 04/09/17 Sulfamethoxazole-Trimethoprim* (Bactrim* DS) 800-160 Mg Tab, 1 TAB PO DAILY for 90 Days, TAB Prov:CHUYRYAMEL 11/30/16 Fluconazole* (Diflucan*) 100 Mg Tablet, 100 MG PO DAILY for 90 Days, TAB Prov:YAMEL MEREDITH 11/30/16 Follow-up Plan 1. Follow up with your primary care provider and methods analyst as soon as possible 2. Repeat ultrasounds must be done for your , as a small subchorionic hemorrhage was found, but stable. 3. Take other medications as directed. Primary Care Provider Not On Staff Doctor Time spent on discharge: > 30 minutes GLADYS OREILLY Jun 30, 2017 14:32
== END 2017-06-30 13:50 | disposition home or self-care (01) | DRG 781 ==
LOC: E/R 21:44 → MS4 06-26 00:13
PROVIDERS: ADMIT Hospitalist; ATTEND Hospitalist
DX: O99.511 Diseases of the respiratory system complicating pregnancy, first trimester (principal); J45.901 Unspecified asthma with (acute) exacerbation; O98.711 Human immunodeficiency virus [HIV] disease complicating pregnancy, first trimester; O23.41 Unspecified infection of urinary tract in pregnancy, first trimester; O46.8X1 Other antepartum hemorrhage, first trimester; Z3A.01 Less than 8 weeks gestation of pregnancy; Z91.14 Patient's other noncompliance with medication regimen; Z86.19 Personal history of other infectious and parasitic diseases
CPT/HCPCS: 36600; 71010; 76801; 76817; 80048; 80053; 80307; 81001; 82803; 83605; 83735; 84100; 84702; 85025; 86360; 87086; 93005; 94640; 94644; 94645; 94664; 96374; 96375; J0696; J2405; J2920; J2930; J3475; J7030; J7512

== ENCOUNTER 2018-08-23 06:02 | Emergency (ER) | END 2018-08-23 06:45 | disposition home or self-care (01) ==